=== PATIENT | male | born 1970 | race American Indian/Alaskan Native ===

== ENCOUNTER 2017-08-18 08:00 | Inpatient (IN) | payer OTHER ==
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
[2017-08-18] MEDS ORDERED: PROVENTIL IH ONE ×2 (08:20→13:34)
[2017-08-18] MEDS ORDERED: ATROVENT IH ONE (08:20)
[2017-08-18 08:42] LABS: Hematocrit 46.1 % (35.5-45.6); Hemoglobin 15.9 gm/dl (11.8-15.2); Mean Corpuscular HGB Conc 35 % (32-34); Mean Corpuscular Hemoglobin 29 pg (28-32); Mean Corpuscular Volume 84 fl (84-94); Platelet Count 377 K/mm3 (140-440); Red Blood Count 5.51 M/mm3 (3.65-5.03); Red Cell Distribution Width 14.2 % (13.2-15.2)
--- NOTE | 2017-08-18 08:47 | XRay Report ---
AP CHEST: HISTORY: Shortness of breath AP view of the chest demonstrates a normal mediastinal and cardiac contour with clear lungs and normal bony and soft tissue structures. IMPRESSION: Unremarkable AP chest.
[2017-08-18 08:59] LABS: Anion Gap 19 mmol/L; BUN/Creatinine Ratio 8.18; Blood Urea Nitrogen 9 mg/dL (9-20); Calcium 8.7 mg/dL (8.4-10.2); Carbon Dioxide 23 mmol/L (22-30); Chloride 102.7 mmol/L (98-107); Glucose 143 mg/dL (75-100); Potassium 3.2 mmol/L (3.6-5.0); Sodium 141 mmol/L (137-145)
[2017-08-18] MEDS ORDERED: ATIVAN ONE ×2 (09:31→15:29)
[2017-08-18] MEDS ORDERED: ATIVAN IV ONE (09:40)
[2017-08-18 09:46] LABS: Blastocytes % (Manual) 0 %
[2017-08-18 09:47] LABS: Basophils % (Manual) 0 % (0.0-1.8); Diff Status Complete; RBC Morphology Normal
[2017-08-18] MEDS ORDERED: KETALAR ONE (09:51)
[2017-08-18] MEDS ORDERED: KETALAR IV ONE ×2 (10:00→13:34)
[2017-08-18 10:29] LABS: ISTAT Base Excess -1; ISTAT HCO3 26.3; ISTAT PCO2 64.7 (35-45); ISTAT PH 7.217 (7.35-7.45); ISTAT PO2 74 (80-105); ISTAT SO2 91; ISTAT TCO2 28
[2017-08-18] MEDS ORDERED: NACL 0.9% 1000 ML IV ONE (10:50)
[2017-08-18] MEDS ORDERED: NACL ONE (13:00)
--- NOTE | 2017-08-18 13:09 | History and Physical Report ---
<STEVIE FONSECA - Last Filed: 08/18/17 14:17> History of Present Illness Date of examination: 08/18/17 Date of admission: 08/18/17 11:10 Chief complaint: Shortness of breath and anxiety attack. History of present illness: Patient is 47 years old female with past medical history of Asthma, who presents to the emergency department with complaining of shortness of breath.Until 5 days ago patient was at his normal baseline state of health, but the past 4 days patient developed dyspnea on exertion. Patient difficulty of breathing gets worst this morning around 6:00 AM after he had an argument with his since then he has had progressive worsening of shortness of breath to the point could not catch his breath.He called 911 and they brought her to the ED. No alleviating and aggravating factors. Patient denies he has had no fevers, chills, or cough, night sweats. No hx of recurrent pneumonia. he has no sick contact, TB exposure (that she knows of ie incarcerated, homeless) . He also has no pets, has not been around any farm animals, and has not traveled recently or been around those who have. Past History Past Medical History: other (Asthma ) Past Surgical History: No surgical history Social history: smoking. denies: alcohol abuse Family history: CAD, hypertension Medications and Allergies Allergies Allergy/AdvReac Type Severity Reaction Status Date / Time Penicillins Allergy Unknown Verified 08/18/17 08:15 Sulfa (Sulfonamide Allergy Unknown Verified 08/18/17 08:15 Antibiotics) Active Meds: Active Medications Enoxaparin Sodium (Lovenox) 40 mg SUB-Q QDAY@1000 NADER Review of Systems Constitutional: no weight loss, no weight gain, no fever Ears, nose, mouth and throat: no ear discharge, no tinnitis, no decreased hearing, no nasal congestion Cardiovascular: no orthopnea, no palpitations, no rapid/irregular heart beat Respiratory: shortness of breath, dyspnea on exertion, congestion, sleep apnea, no cough with sputum, no excessive sputum, no hemoptysis Gastrointestinal: no vomiting, no diarrhea, no constipation Genitourinary Male: no discharge, no urinary frequency, no urinary hesitancy Rectal: no pain, no incontinence Musculoskeletal: no neck pain, no arm numbness/tingling, no low back pain Integumentary: no pruritis, no redness, no wounds Neurological: no paralysis, no weakness, no parathesias, no numbness Psychiatric: no change in sleep habits, no sleep disturbances, no insomnia, no hypersomnia, no change in appetite Endocrine: no heat intolerance, no polyphagia, no excessive thirst, no polydipsia, no polyuria Hematologic/Lymphatic: no easy bruising, no easy bleeding Allergic/Immunologic: no urticaria, no allergic rhinitis Exam - Constitutional Vitals: Temp Pulse Resp BP Pulse Ox 135 H 30 H 191/137 95 08/18/17 12:01 08/18/17 12:01 08/18/17 12:30 08/18/17 12:30 General appearance: Present: no acute distress - EENT Eyes: Present: PERRL ENT: hearing intact - Neck Neck: Present: supple - Respiratory Respiratory effort: normal Respiratory: bilateral: wheezing - Cardiovascular Rhythm: regular Heart Sounds: Present: S1 & S2 - Extremities Extremities: no ischemia Peripheral Pulses: within normal limits - Abdominal General gastrointestinal: Present: soft, non-tender Male genitourinary: Present: deferred - Rectal Rectal Exam: deferred - Integumentary Integumentary: Present: clear, warm, dry - Musculoskeletal Musculoskeletal: strength equal bilaterally - Psychiatric Psychiatric: appropriate mood/affect - Neurologic Neurologic: CNII-XII intact - Allied Health Allied health notes reviewed: nursing Results - Labs CBC & Chem 7: 08/18/17 08:32 08/18/17 08:32 Labs: Laboratory Last Values WBC 22.0 K/mm3 (4.5-11.0) H 08/18/17 08:32 RBC 5.51 M/mm3 (3.65-5.03) H 08/18/17 08:32 Hgb 15.9 gm/dl (11.8-15.2) H 08/18/17 08:32 Hct 46.1 % (35.5-45.6) H 08/18/17 08:32 MCV 84 fl (84-94) 08/18/17 08:32 MCH 29 pg (28-32) 08/18/17 08:32 MCHC 35 % (32-34) H 08/18/17 08:32 RDW 14.2 % (13.2-15.2) 08/18/17 08:32 Plt Count 377 K/mm3 (140-440) 08/18/17 08:32 Add Manual Diff Complete 08/18/17 08:32 Total Counted 100 08/18/17 08:32 Seg Neuts % (Manual) 84.0 % (40.0-70.0) H 08/18/17 08:32 Band Neutrophils % 0 % 08/18/17 08:32 Lymphocytes % (Manual) 7.0 % (13.4-35.0) L 08/18/17 08:32 Reactive Lymphs % (Man) 0 % 08/18/17 08:32 Monocytes % (Manual) 3.0 % (0.0-7.3) 08/18/17 08:32 Eosinophils % (Manual) 6.0 % (0.0-4.3) H 08/18/17 08:32 Basophils % (Manual) 0 % (0.0-1.8) 08/18/17 08:32 Metamyelocytes % 0 % 08/18/17 08:32 Myelocytes % 0 % 08/18/17 08:32 Promyelocytes % 0 % 08/18/17 08:32 Blast Cells % 0 % 08/18/17 08:32 Nucleated RBC % Not Reportable 08/18/17 08:32 Seg Neutrophils # Man 18.5 K/mm3 (1.8-7.7) H 08/18/17 08:32 Band Neutrophils # 0.0 K/mm3 08/18/17 08:32 Lymphocytes # (Manual) 1.5 K/mm3 (1.2-5.4) 08/18/17 08:32 Abs React Lymphs (Man) 0.0 K/mm3 08/18/17 08:32 Monocytes # (Manual) 0.7 K/mm3 (0.0-0.8) 08/18/17 08:32 Eosinophils # (Manual) 1.3 K/mm3 (0.0-0.4) H 08/18/17 08:32 Basophils # (Manual) 0.0 K/mm3 (0.0-0.1) 08/18/17 08:32 Metamyelocytes # 0.0 K/mm3 08/18/17 08:32 Myelocytes # 0.0 K/mm3 08/18/17 08:32 Promyelocytes # 0.0 K/mm3 08/18/17 08:32 Blast Cells # 0.0 K/mm3 08/18/17 08:32 WBC Morphology Not Reportable 08/18/17 08:32 Hypersegmented Neuts Not Reportable 08/18/17 08:32 Hyposegmented Neuts Not Reportable 08/18/17 08:32 Hypogranular Neuts Not Reportable 08/18/17 08:32 Smudge Cells Not Reportable 08/18/17 08:32 Toxic Granulation Not Reportable 08/18/17 08:32 Toxic Vacuolation Not Reportable 08/18/17 08:32 Dohle Bodies Not Reportable 08/18/17 08:32 Pelger-Huet Anomaly Not Reportable 08/18/17 08:32 Merry Rods Not Reportable 08/18/17 08:32 Platelet Estimate Appears normal 08/18/17 08:32 Clumped Platelets Not Reportable 08/18/17 08:32 Plt Clumps, EDTA Not Reportable 08/18/17 08:32 Large Platelets Not Reportable 08/18/17 08:32 Giant Platelets Not Reportable 08/18/17 08:32 Platelet Satelliting Not Reportable 08/18/17 08:32 Plt Morphology Comment Not Reportable 08/18/17 08:32 RBC Morphology Normal 08/18/17 08:32 Dimorphic RBCs Not Reportable 08/18/17 08:32 Polychromasia Not Reportable 08/18/17 08:32 Hypochromasia Not Reportable 08/18/17 08:32 Poikilocytosis Not Reportable 08/18/17 08:32 Anisocytosis Not Reportable 08/18/17 08:32 Microcytosis Not Reportable 08/18/17 08:32 Macrocytosis Not Reportable 08/18/17 08:32 Spherocytes Not Reportable 08/18/17 08:32 Pappenheimer Bodies Not Reportable 08/18/17 08:32 Sickle Cells Not Reportable 08/18/17 08:32 Target Cells Not Reportable 08/18/17 08:32 Tear Drop Cells Not Reportable 08/18/17 08:32 Ovalocytes Not Reportable 08/18/17 08:32 Helmet Cells Not Reportable 08/18/17 08:32 [place] Bodies Not Reportable 08/18/17 08:32 Whigham Rings Not Reportable 08/18/17 08:32 [place] Cells Not Reportable 08/18/17 08:32 Bite Cells Not Reportable 08/18/17 08:32 Crenated Cell Not Reportable 08/18/17 08:32 Elliptocytes Not Reportable 08/18/17 08:32 Acanthocytes (Spur) Not Reportable 08/18/17 08:32 Rouleaux Not Reportable 08/18/17 08:32 Hemoglobin C Crystals Not Reportable 08/18/17 08:32 Schistocytes Not Reportable 08/18/17 08:32 Malaria parasites Not Reportable 08/18/17 08:32 Sudhakar Bodies Not Reportable 08/18/17 08:32 Hem Pathologist Commnt No 08/18/17 08:32 POC ABG pH 7.217 (7.35-7.45) L 08/18/17 10:24 POC ABG pCO2 64.7 (35-45) H 08/18/17 10:24 POC ABG pO2 74 (80-105) L 08/18/17 10:24 POC ABG HCO3 26.3 08/18/17 10:24 POC ABG Total CO2 28 08/18/17 10:24 POC ABG O2 Sat 91 08/18/17 10:24 POC ABG Base Excess -1 08/18/17 10:24 FiO2 50 % 08/18/17 10:24 Sodium 141 mmol/L (137-145) 08/18/17 08:32 Potassium 3.2 mmol/L (3.6-5.0) L 08/18/17 08:32 Chloride 102.7 mmol/L (98-107) 08/18/17 08:32 Carbon Dioxide 23 mmol/L (22-30) 08/18/17 08:32 Anion Gap 19 mmol/L 08/18/17 08:32 BUN 9 mg/dL (9-20) 08/18/17 08:32 Creatinine 1.1 mg/dL (0.8-1.5) 08/18/17 08:32 Estimated GFR > 60 ml/min 08/18/17 08:32 BUN/Creatinine Ratio 8.18 % 08/18/17 08:32 Glucose 143 mg/dL (75-100) H 08/18/17 08:32 POC Glucose 139 (70-105) H 08/18/17 08:12 Lactic Acid 1.20 mmol/L (0.7-2.0) 08/18/17 10:55 Calcium 8.7 mg/dL (8.4-10.2) 08/18/17 08:32 Troponin T < 0.010 ng/mL (0.00-0.029) 08/18/17 08:32 NT-Pro-B Natriuret Pep 18.05 pg/mL (0-450) 08/18/17 08:32 - Imaging and Cardiology Chest x-ray: image reviewed (Unremarkable ) Assessment and Plan Assessment and plan: Acute respiratory failure with hypoxia Patient oxygen saturation improved with BiPAP 35%.Patient currently on BiPAP 35 % with SPO2 98%. No acute respiratory distress noted. Aggressive Nebulizers/Inhalers ABG when necessary Oxygen supplement Pulmonary consult. Supportive care SIRS patient meets the SIRS criteria with tachycardia, tachypnea and leukocytosis. Blood and urine culture collected prior to antibiotic Follow-up with cultures Fluid resuscitation and gently IV fluid hydration Patient received IV vancomycin and Zosyn in the emergency department Started on empiric treatment IV Levaquin. Supportive care Leukocytosis Secondary to SIRS Treat with antibiotic and we will repeat CBC Closely monitor Acute Asthma exacerbation Continue on Duoneb every 6 hours Wean IV steroid Solumedrol Patient received IV vancomycin and Zosyn in the emergency department. Started on Iv Levaquin Oxygen as necessary Aggressive Nebulizers/Inhalers Supportive care Acute Bronchitis Bronchodilator's IV antibiotic treatment as above. Hypokalemia replaced We will repeat BMP in the morning Closely monitor electrolytes Dehydration IV fluid hydration Supportive care Morbid obese with BMI>43 Patient counseled to loss weight. Tobacco use Smoking cessation counseling done. Patient strongly advised to quit. DVT prophylaxis Lovenox Advance Directives: Yes VTE prophylaxis?: Chemical Contraindication Mechanical VTE Prophylaxis: Treatment Not Indicated Plan of care discussed with patient/family: Yes <SHANICE CERRATO S - Last Filed: 08/18/17 14:49> History of Present Illness Date of admission: 08/18/17 11:10 Medications and Allergies Active Meds: Active Medications Acetaminophen (Tylenol) 650 mg PO Q4H PRN PRN Reason: Pain MILD(1-3)/Fever >100.5/SHAY Albuterol (Proventil) 2.5 mg IH Q4HRT PRN PRN Reason: Shortness Of Breath Albuterol/Ipratropium (Duoneb *Not For Prn Use*) 1 ampul IH Q6HRT NADER Bisacodyl (Dulcolax) 10 mg IN QDAY PRN PRN Reason: Constipation unrelieved by MOM Enoxaparin Sodium (Lovenox) 40 mg SUB-Q QDAY@1000 NADER Sodium Chloride (Nacl 0.9% 1000 Ml) 1,000 mls @ 75 mls/hr IV DIRECT ANDER Levofloxacin/Dextrose (Levaquin 750mg/150ml) 750 mg in 150 mls @ 150 mls/hr IV Q24H NADER PRN Reason: Protocol Lorazepam (Ativan) 2 mg IV Q4H PRN PRN Reason: Agitation Methylprednisolone Sodium Succinate (Solu-Medrol) 40 mg IV Q6H NADER Ondansetron HCl (Zofran) 4 mg IM Q4H PRN PRN Reason: Nausea And Vomiting Exam - Constitutional Vitals: Temp Pulse Resp BP Pulse Ox 124 H 21 230/117 98 08/18/17 14:31 08/18/17 14:31 08/18/17 14:31 08/18/17 14:31 Results - Labs CBC & Chem 7: 08/18/17 08:32 08/18/17 08:32 Labs: Laboratory Last Values WBC 22.0 K/mm3 (4.5-11.0) H 08/18/17 08:32 RBC 5.51 M/mm3 (3.65-5.03) H 08/18/17 08:32 Hgb 15.9 gm/dl (11.8-15.2) H 08/18/17 08:32 Hct 46.1 % (35.5-45.6) H 08/18/17 08:32 MCV 84 fl (84-94) 08/18/17 08:32 MCH 29 pg (28-32) 08/18/17 08:32 MCHC 35 % (32-34) H 08/18/17 08:32 RDW 14.2 % (13.2-15.2) 08/18/17 08:32 Plt Count 377 K/mm3 (140-440) 08/18/17 08:32 Add Manual Diff Complete 08/18/17 08:32 Total Counted 100 08/18/17 08:32 Seg Neuts % (Manual) 84.0 % (40.0-70.0) H 08/18/17 08:32 Band Neutrophils % 0 % 08/18/17 08:32 Lymphocytes % (Manual) 7.0 % (13.4-35.0) L 08/18/17 08:32 Reactive Lymphs % (Man) 0 % 08/18/17 08:32 Monocytes % (Manual) 3.0 % (0.0-7.3) 08/18/17 08:32 Eosinophils % (Manual) 6.0 % (0.0-4.3) H 08/18/17 08:32 Basophils % (Manual) 0 % (0.0-1.8) 08/18/17 08:32 Metamyelocytes % 0 % 08/18/17 08:32 Myelocytes % 0 % 08/18/17 08:32 Promyelocytes % 0 % 08/18/17 08:32 Blast Cells % 0 % 08/18/17 08:32 Nucleated RBC % Not Reportable 08/18/17 08:32 Seg Neutrophils # Man 18.5 K/mm3 (1.8-7.7) H 08/18/17 08:32 Band Neutrophils # 0.0 K/mm3 08/18/17 08:32 Lymphocytes # (Manual) 1.5 K/mm3 (1.2-5.4) 08/18/17 08:32 Abs React Lymphs (Man) 0.0 K/mm3 08/18/17 08:32 Monocytes # (Manual) 0.7 K/mm3 (0.0-0.8) 08/18/17 08:32 Eosinophils # (Manual) 1.3 K/mm3 (0.0-0.4) H 08/18/17 08:32 Basophils # (Manual) 0.0 K/mm3 (0.0-0.1) 08/18/17 08:32 Metamyelocytes # 0.0 K/mm3 08/18/17 08:32 Myelocytes # 0.0 K/mm3 08/18/17 08:32 Promyelocytes # 0.0 K/mm3 08/18/17 08:32 Blast Cells # 0.0 K/mm3 08/18/17 08:32 WBC Morphology Not Reportable 08/18/17 08:32 Hypersegmented Neuts Not Reportable 08/18/17 08:32 Hyposegmented Neuts Not Reportable 08/18/17 08:32 Hypogranular Neuts Not Reportable 08/18/17 08:32 Smudge Cells Not Reportable 08/18/17 08:32 Toxic Granulation Not Reportable 08/18/17 08:32 Toxic Vacuolation Not Reportable 08/18/17 08:32 Dohle Bodies Not Reportable 08/18/17 08:32 Pelger-Huet Anomaly Not Reportable 08/18/17 08:32 Emrry Rods Not Reportable 08/18/17 08:32 Platelet Estimate Appears normal 08/18/17 08:32 Clumped Platelets Not Reportable 08/18/17 08:32 Plt Clumps, EDTA Not Reportable 08/18/17 08:32 Large Platelets Not Reportable 08/18/17 08:32 Giant Platelets Not Reportable 08/18/17 08:32 Platelet Satelliting Not Reportable 08/18/17 08:32 Plt Morphology Comment Not Reportable 08/18/17 08:32 RBC Morphology Normal 08/18/17 08:32 Dimorphic RBCs Not Reportable 08/18/17 08:32 Polychromasia Not Reportable 08/18/17 08:32 Hypochromasia Not Reportable 08/18/17 08:32 Poikilocytosis Not Reportable 08/18/17 08:32 Anisocytosis Not Reportable 08/18/17 08:32 Microcytosis Not Reportable 08/18/17 08:32 Macrocytosis Not Reportable 08/18/17 08:32 Spherocytes Not Reportable 08/18/17 08:32 Pappenheimer Bodies Not Reportable 08/18/17 08:32 Sickle Cells Not Reportable 08/18/17 08:32 Target Cells Not Reportable 08/18/17 08:32 Tear Drop Cells Not Reportable 08/18/17 08:32 Ovalocytes Not Reportable 08/18/17 08:32 Helmet Cells Not Reportable 08/18/17 08:32 [place] Bodies Not Reportable 08/18/17 08:32 Whigham Rings Not Reportable 08/18/17 08:32 [place] Cells Not Reportable 08/18/17 08:32 Bite Cells Not Reportable 08/18/17 08:32 Crenated Cell Not Reportable 08/18/17 08:32 Elliptocytes Not Reportable 08/18/17 08:32 Acanthocytes (Spur) Not Reportable 08/18/17 08:32 Rouleaux Not Reportable 08/18/17 08:32 Hemoglobin C Crystals Not Reportable 08/18/17 08:32 Schistocytes Not Reportable 08/18/17 08:32 Malaria parasites Not Reportable 08/18/17 08:32 Sudhakar Bodies Not Reportable 08/18/17 08:32 Hem Pathologist Commnt No 08/18/17 08:32 POC ABG pH 7.217 (7.35-7.45) L 08/18/17 10:24 POC ABG pCO2 64.7 (35-45) H 08/18/17 10:24 POC ABG pO2 74 (80-105) L 08/18/17 10:24 POC ABG HCO3 26.3 08/18/17 10:24 POC ABG Total CO2 28 08/18/17 10:24 POC ABG O2 Sat 91 08/18/17 10:24 POC ABG Base Excess -1 08/18/17 10:24 FiO2 50 % 08/18/17 10:24 Sodium 141 mmol/L (137-145) 08/18/17 08:32 Potassium 3.2 mmol/L (3.6-5.0) L 08/18/17 08:32 Chloride 102.7 mmol/L (98-107) 08/18/17 08:32 Carbon Dioxide 23 mmol/L (22-30) 08/18/17 08:32 Anion Gap 19 mmol/L 08/18/17 08:32 BUN 9 mg/dL (9-20) 08/18/17 08:32 Creatinine 1.1 mg/dL (0.8-1.5) 08/18/17 08:32 Estimated GFR > 60 ml/min 08/18/17 08:32 BUN/Creatinine Ratio 8.18 % 08/18/17 08:32 Glucose 143 mg/dL (75-100) H 08/18/17 08:32 POC Glucose 139 (70-105) H 08/18/17 08:12 Lactic Acid 1.20 mmol/L (0.7-2.0) 08/18/17 10:55 Calcium 8.7 mg/dL (8.4-10.2) 08/18/17 08:32 Troponin T < 0.010 ng/mL (0.00-0.029) 08/18/17 08:32 NT-Pro-B Natriuret Pep 18.05 pg/mL (0-450) 08/18/17 08:32 Assessment and Plan Assessment and plan: I saw and evaluated the patient. I agree with the findings and the plan of care as documented in the Nurse Practitioner's~note, with the following corrections and additions.
[2017-08-18] MEDS ORDERED: PROVENTIL IH PRN (13:20)
[2017-08-18] MEDS ORDERED: TYLENOL PO PRN (13:20)
[2017-08-18] MEDS ORDERED: DULCOLAX PR PRN (13:20)
[2017-08-18] MEDS ORDERED: ZOFRAN IM PRN (13:22)
[2017-08-18] MEDS ORDERED: ATIVAN IV PRN (13:22)
[2017-08-18] MEDS ORDERED: K-DUR PO ONE (14:00)
[2017-08-18] MEDS ORDERED: DUONEB *Not for PRN Use IH SCH (14:00)
[2017-08-18] MEDS ORDERED: LEVAQUIN 750MG/150ML 750 MG/150 ML BAG IV SCH (14:30)
[2017-08-18] MEDS ORDERED: LEVAQUIN 500MG/100ML 500 MG/100 ML BAG IV SCH (14:30)
[2017-08-18] MEDS ORDERED: QUELICIN ONE (15:18)
[2017-08-18] MEDS ORDERED: AMIDATE IV ONE ×2 (15:18→16:49)
[2017-08-18] MEDS ORDERED: FENTANYL IV ONE (15:29)
[2017-08-18] MEDS ORDERED: DIPRIVAN 10 MG/ML IV ONE (15:29)
[2017-08-18] MEDS: fentaNYL DRIP Premix 2,000 MCG/100 ML BAG IV SCH (15:35)
[2017-08-18] MEDS: DIPRIVAN 10 MG/ML 1,000 MG/100 ML BOTTLE IV SCH ×2 (15:40→22:32)
--- NOTE | 2017-08-18 15:47 | Procedure Note ---
Date of procedure: 08/18/17 Pre-op diagnosis: respiratory failure Post-op diagnosis: same Procedure: Intubation procedure was emergent timeout was called. Patient was intubated with 100 of succinylcholine and 20 of etomidate. Patient was intubated on the first try ET tube was visualized going through cords. ET tube was 8.0 a Mac 3 blade was used with direct visualization. Placement was confirmed by chest x- ray, tube condensation CO2 capnography and breath sounds. Patient tolerated the procedure well and had no complications. Anesthesia: other (100 of succinylcholine and 20 of etomidate) Surgeon: FLORENTIN CORDERO Estimated blood loss: none Pathology: none Condition: stable Disposition: ICU
[2017-08-18] MEDS ORDERED: CARDENE 50 MG in NACL 0.9% 250ML 230 ML IV SCH (16:00)
--- NOTE | 2017-08-18 16:19 | XRay Report ---
PORTABLE CHEST INDICATION: Post intubation. COMPARISON: 8:34 AM earlier today. FINDINGS: Portable, frontal chest radiograph, 3:47 PM, 08/18/2017 demonstrates new endotracheal tube tip approximately 4 cm above the rashi. New esophagogastric tube tip just past the GE junction in the proximal stomach. Normal cardiomediastinal silhouette. Clear lungs. Intact bones. EKG leads. Few radiopaque dental fillings. CONCLUSION: No acute chest process with uncomplicated intubation. Esophagogastric tube may though be advanced approximately 10 cm for more optimal tip placement in the stomach, if so appropriate. Thank you for the opportunity to participate in this patient's care.
[2017-08-18] MEDS ORDERED: QUELICIN IV ONE (16:47)
[2017-08-18 16:56] LABS: ISTAT Base Excess -1; ISTAT HCO3 26.6; ISTAT PCO2 63.3 (35-45); ISTAT PH 7.231 (7.35-7.45); ISTAT PO2 94 (80-105); ISTAT SO2 95; ISTAT TCO2 28
[2017-08-18 17:44] LABS: Bilirubin,Urine NEG (Negative); Blood,Urine SM (Negative); Ketones,Urine TR mg/dL (Negative); Leukocyte Esterase,Urine NEG (Negative); Mucus,Urine FEW /HPF; Nitrite,Urine NEG (Negative); Urobilinogen,Urine < 2.0 mg/dL (<2.0)
[2017-08-18 17:45] LABS: Protein,Urine >500 mg/dL (Negative)
[2017-08-18] MEDS: NACL 0.9% 1000 ML 1,000 ML IV SCH (20:36)
[2017-08-18] MEDS ORDERED: VANCOMYCIN/NS 1 GM/250 ML 1 GM/250 ML BAG IV ONE (20:52)
[2017-08-18] MEDS ORDERED: ZOSYN/NS 4.5GM/100ML 4.5 GM/100 ML VIAL IV SCH (21:00)
[2017-08-18] MEDS ORDERED: VANCOMYCIN 2,000 MG in NACL 0.9% 500 ML 500 ML IV SCH (22:00)
[2017-08-18] MEDS: DUONEB *Not for PRN Use IH SCH (22:15)
[2017-08-19] MEDS: DUONEB *Not for PRN Use IH SCH ×4 (01:10→20:08)
[2017-08-19] MEDS: fentaNYL DRIP Premix 2,000 MCG/100 ML BAG IV SCH ×3 (02:32→23:12)
--- NOTE | 2017-08-19 05:07 | Event Note ---
Date: 08/18/17 Acute Resp failure:PATIENT WAS IN SEVERE RESP DISTRESS INSPITE OF Bipap.Requested Dr Olmos to intubate the patient b/c of impending fatigue .Intubated without any complication.Vent settings ordered. Hypertensive emergency:Patient initiated on Cardene drip .Dose to be adjusted to keep DBP below 100 and Systolic Bp below 160 mm Hg The high probability of a clinically significant, sudden or life threatening deterioration of the [cardiac, pulmonary, renal] system(s) required my full and direct attention, intervention and personal management. The aggregate critical care time was [40] minutes. This time is in addition to time spent performing reported procedures but includes the following: [x] Data Review and interpretation [x] Patient assessment and monitoring of vital signs [x] Documentation [x] Medication orders and management
[2017-08-19 05:41] LABS: ISTAT Base Excess -3; ISTAT HCO3 23.2; ISTAT PO2 83 (80-105); ISTAT SO2 95; ISTAT TCO2 25
[2017-08-19 06:12] LABS: Albumin 3.5 g/dL (3.9-5); Albumin/Globulin Ratio 1.1 %; BUN/Creatinine Ratio 7.58; Bilirubin,Total 0.4 mg/dL (0.1-1.2); Calcium 8.4 mg/dL (8.4-10.2); Chloride 105.2 mmol/L (98-107); Magnesium 2.2 mg/dL (1.7-2.3); Potassium 4.6 mmol/L (3.6-5.0); Total Protein 6.6 g/dL (6.3-8.2)
[2017-08-19 06:26] LABS: Basophils % (Auto) 0.1 % (0.0-1.8); Hematocrit 40.2 % (35.5-45.6); Hemoglobin 13.1 gm/dl (11.8-15.2); Mean Corpuscular HGB Conc 33 % (32-34); Mean Corpuscular Hemoglobin 28 pg (28-32); Mean Corpuscular Volume 86 fl (84-94); Platelet Count 282 K/mm3 (140-440); Red Blood Count 4.66 M/mm3 (3.65-5.03); Red Cell Distribution Width 14.7 % (13.2-15.2); White Blood Count 18.1 K/mm3 (4.5-11.0)
--- NOTE | 2017-08-19 08:23 | Progress Note ---
Assessment and Plan Assessment and plan: Acute resp faillure due to asthma exacerbation. He is now intubated on ventilator. Pulmonology following. Asthma exacerbation. On solumedrol, levaquin, Duoneb Leukocytosis maybe SIRS. To r/o sepsis. Acute Kidney Injury due to Acute tubular necrosis. Creatinine 2.9, was 1.1 yesterday. Strict I/O. 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 DVT prophylaxis with Lovenox Full code status History Interval history: Patient with acute resp failure due to asthma exacerbation Hospitalist Physical - Physical exam Narrative exam: Gen Appearance: Not in acute distress,intubated HEENT: normocephalic, atraumatic Neck: supple, no JVD Lungs: Clear to auscultation, bilaterally, no rales, no wheeze Heart: S1 and S2 regular, no murmurs, rubs or gallop Abdomen: Soft , non tender, non distended, normal bowel sounds Extremity: No edema, no clubbing or cyanosis, Neuro : Intubated,sedated - Constitutional Vitals: Temp Pulse Resp BP Pulse Ox 98.9 F 79 24 116/67 95 08/19/17 08:00 08/19/17 06:21 08/19/17 06:21 08/19/17 06:21 08/19/17 06:21 General appearance: Present: no acute distress Results - Labs CBC & Chem 7: 08/20/17 04:04 08/20/17 10:34 Labs: Laboratory Last Values WBC 18.1 K/mm3 (4.5-11.0) H 08/19/17 04:37 RBC 4.66 M/mm3 (3.65-5.03) 08/19/17 04:37 Hgb 13.1 gm/dl (11.8-15.2) 08/19/17 04:37 Hct 40.2 % (35.5-45.6) 08/19/17 04:37 MCV 86 fl (84-94) 08/19/17 04:37 MCH 28 pg (28-32) 08/19/17 04:37 MCHC 33 % (32-34) 08/19/17 04:37 RDW 14.7 % (13.2-15.2) 08/19/17 04:37 Plt Count 282 K/mm3 (140-440) 08/19/17 04:37 Lymph % (Auto) 6.1 % (13.4-35.0) L 08/19/17 04:37 Mcdowell % (Auto) 4.1 % (0.0-7.3) 08/19/17 04:37 Eos % (Auto) 0.0 % (0.0-4.3) 08/19/17 04:37 Baso % (Auto) 0.1 % (0.0-1.8) 08/19/17 04:37 Lymph # 1.1 K/mm3 (1.2-5.4) L 08/19/17 04:37 Mcdowell # 0.7 K/mm3 (0.0-0.8) 08/19/17 04:37 Eos # 0.0 K/mm3 (0.0-0.4) 08/19/17 04:37 Baso # 0.0 K/mm3 (0.0-0.1) 08/19/17 04:37 Add Manual Diff Complete 08/18/17 08:32 Total Counted 100 08/18/17 08:32 Seg Neutrophils % 89.7 % (40.0-70.0) H 08/19/17 04:37 Seg Neuts % (Manual) 84.0 % (40.0-70.0) H 08/18/17 08:32 Band Neutrophils % 0 % 08/18/17 08:32 Lymphocytes % (Manual) 7.0 % (13.4-35.0) L 08/18/17 08:32 Reactive Lymphs % (Man) 0 % 08/18/17 08:32 Monocytes % (Manual) 3.0 % (0.0-7.3) 08/18/17 08:32 Eosinophils % (Manual) 6.0 % (0.0-4.3) H 08/18/17 08:32 Basophils % (Manual) 0 % (0.0-1.8) 08/18/17 08:32 Metamyelocytes % 0 % 08/18/17 08:32 Myelocytes % 0 % 08/18/17 08:32 Promyelocytes % 0 % 08/18/17 08:32 Blast Cells % 0 % 08/18/17 08:32 Nucleated RBC % Not Reportable 08/18/17 08:32 Seg Neutrophils # 16.2 K/mm3 (1.8-7.7) H 08/19/17 04:37 Seg Neutrophils # Man 18.5 K/mm3 (1.8-7.7) H 08/18/17 08:32 Band Neutrophils # 0.0 K/mm3 08/18/17 08:32 Lymphocytes # (Manual) 1.5 K/mm3 (1.2-5.4) 08/18/17 08:32 Abs React Lymphs (Man) 0.0 K/mm3 08/18/17 08:32 Monocytes # (Manual) 0.7 K/mm3 (0.0-0.8) 08/18/17 08:32 Eosinophils # (Manual) 1.3 K/mm3 (0.0-0.4) H 08/18/17 08:32 Basophils # (Manual) 0.0 K/mm3 (0.0-0.1) 08/18/17 08:32 Metamyelocytes # 0.0 K/mm3 08/18/17 08:32 Myelocytes # 0.0 K/mm3 08/18/17 08:32 Promyelocytes # 0.0 K/mm3 08/18/17 08:32 Blast Cells # 0.0 K/mm3 08/18/17 08:32 WBC Morphology Not Reportable 08/18/17 08:32 Hypersegmented Neuts Not Reportable 08/18/17 08:32 Hyposegmented Neuts Not Reportable 08/18/17 08:32 Hypogranular Neuts Not Reportable 08/18/17 08:32 Smudge Cells Not Reportable 08/18/17 08:32 Toxic Granulation Not Reportable 08/18/17 08:32 Toxic Vacuolation Not Reportable 08/18/17 08:32 Dohle Bodies Not Reportable 08/18/17 08:32 Pelger-Huet Anomaly Not Reportable 08/18/17 08:32 Merry Rods Not Reportable 08/18/17 08:32 Platelet Estimate Appears normal 08/18/17 08:32 Clumped Platelets Not Reportable 08/18/17 08:32 Plt Clumps, EDTA Not Reportable 08/18/17 08:32 Large Platelets Not Reportable 08/18/17 08:32 Giant Platelets Not Reportable 08/18/17 08:32 Platelet Satelliting Not Reportable 08/18/17 08:32 Plt Morphology Comment Not Reportable 08/18/17 08:32 RBC Morphology Normal 08/18/17 08:32 Dimorphic RBCs Not Reportable 08/18/17 08:32 Polychromasia Not Reportable 08/18/17 08:32 Hypochromasia Not Reportable 08/18/17 08:32 Poikilocytosis Not Reportable 08/18/17 08:32 Anisocytosis Not Reportable 08/18/17 08:32 Microcytosis Not Reportable 08/18/17 08:32 Macrocytosis Not Reportable 08/18/17 08:32 Spherocytes Not Reportable 08/18/17 08:32 Pappenheimer Bodies Not Reportable 08/18/17 08:32 Sickle Cells Not Reportable 08/18/17 08:32 Target Cells Not Reportable 08/18/17 08:32 Tear Drop Cells Not Reportable 08/18/17 08:32 Ovalocytes Not Reportable 08/18/17 08:32 Helmet Cells Not Reportable 08/18/17 08:32 [place] Bodies Not Reportable 08/18/17 08:32 Norris Rings Not Reportable 08/18/17 08:32 [place]ie Cells Not Reportable 08/18/17 08:32 Bite Cells Not Reportable 08/18/17 08:32 Crenated Cell Not Reportable 08/18/17 08:32 Elliptocytes Not Reportable 08/18/17 08:32 Acanthocytes (Spur) Not Reportable 08/18/17 08:32 Rouleaux Not Reportable 08/18/17 08:32 Hemoglobin C Crystals Not Reportable 08/18/17 08:32 Schistocytes Not Reportable 08/18/17 08:32 Malaria parasites Not Reportable 08/18/17 08:32 Sudhakar Bodies Not Reportable 08/18/17 08:32 Hem Pathologist Commnt No 08/18/17 08:32 POC ABG pH 7.320 (7.35-7.45) L 08/19/17 05:37 POC ABG pCO2 45.0 (35-45) 08/19/17 05:37 POC ABG pO2 83 (80-105) 08/19/17 05:37 POC ABG HCO3 23.2 08/19/17 05:37 POC ABG Total CO2 25 08/19/17 05:37 POC ABG O2 Sat 95 08/19/17 05:37 POC ABG Base Excess -3 08/19/17 05:37 FiO2 65 % 08/19/17 05:37 Sodium 142 mmol/L (137-145) 08/19/17 04:37 Potassium 4.6 mmol/L (3.6-5.0) D 08/19/17 04:37 Chloride 105.2 mmol/L (98-107) 08/19/17 04:37 Carbon Dioxide 23 mmol/L (22-30) 08/19/17 04:37 Anion Gap 18 mmol/L 08/19/17 04:37 BUN 22 mg/dL (9-20) H 08/19/17 04:37 Creatinine 2.9 mg/dL (0.8-1.5) H D 08/19/17 04:37 Estimated GFR 28 ml/min 08/19/17 04:37 BUN/Creatinine Ratio 7.58 % 08/19/17 04:37 Glucose 124 mg/dL (75-100) H 08/19/17 04:37 POC Glucose 139 (70-105) H 08/18/17 08:12 Lactic Acid 1.40 mmol/L (0.7-2.0) 08/18/17 21:14 Calcium 8.4 mg/dL (8.4-10.2) 08/19/17 04:37 Phosphorus 1.00 mg/dL (2.5-4.5) L 08/19/17 04:37 Magnesium 2.20 mg/dL (1.7-2.3) 08/19/17 04:37 Total Bilirubin 0.40 mg/dL (0.1-1.2) 08/19/17 04:37 AST 16 units/L (5-40) 08/19/17 04:37 ALT 13 units/L (7-56) 08/19/17 04:37 Alkaline Phosphatase 58 units/L (35-129) 08/19/17 04:37 Troponin T < 0.010 ng/mL (0.00-0.029) 08/18/17 08:32 NT-Pro-B Natriuret Pep 18.05 pg/mL (0-450) 08/18/17 08:32 Total Protein 6.6 g/dL (6.3-8.2) 08/19/17 04:37 Albumin 3.5 g/dL (3.9-5) L 08/19/17 04:37 Albumin/Globulin Ratio 1.1 % 08/19/17 04:37 Urine Color Yellow (Yellow) 08/18/17 17: Urine Turbidity Clear (Clear) 08/18/17 17:26 Urine pH 5.0 (5.0-7.0) 08/18/17 17:26 Ur Specific [place] 1.026 (1.003-1.030) 08/18/17 17:26 Urine Protein >500 mg/dL (Negative) 08/18/17 17:26 Urine Glucose (UA) 50 mg/dL (Negative) 08/18/17 17: Urine Ketones Tr mg/dL (Negative) 08/18/17 17: Urine Blood Sm (Negative) 08/18/17 17:26 Urine Nitrite Neg (Negative) 08/18/17 17: Urine Bilirubin Neg (Negative) 08/18/17 17: Urine Urobilinogen < 2.0 mg/dL (<2.0) 08/18/17 17:26 Ur Leukocyte Esterase Neg (Negative) 08/18/17 17:26 Urine WBC (Auto) 9.0 /HPF (0.0-6.0) H 08/18/17 17: Urine RBC (Auto) 5.0 /HPF (0.0-6.0) 08/18/17 17:26 U Epithel Cells (Auto) < 1.0 /HPF (0-13.0) 08/18/17 17: Urine Mucus Few /HPF 08/18/17 17:26
--- NOTE | 2017-08-19 08:46 | XRay Report ---
AP CHEST :08/19/17 CLINICAL: Intubated.Follow up respiratory failure. COMPARISON:Previous day. FINDINGS: The endotracheal tube is in satisfactory position. The feeding tube tip is below the diaphragm and not imaged. The lungs are normally expanded and clear. No pneumothorax. IMPRESSION: Normal.
[2017-08-19] MEDS: LOVENOX SUB-Q SCH (09:17)
[2017-08-19] MEDS: PEPCID IV SCH (09:17)
[2017-08-19] MEDS ORDERED: SODIUM PHOSPHATE 30 MMOL in NACL 0.9% 500 ML 500 ML IV ONE (09:30)
[2017-08-19] MEDS ORDERED: LOVENOX SUB-Q SCH (10:00)
--- NOTE | 2017-08-19 11:32 | Consultation ---
History of Present Illness - Reason for Consult Consult date: 08/19/17 acute renal failure - History of Present Illness This is a 47 year old male who presented to the E.R via EMS with a chief complaint of worsening shortness of breath that occurred at 6:00 a.m yesterday morning after undergoing an argument with his per report but prior to that event patient had ongoing dyspnea on exertion that started 5 days prior. During hospitalization patient subsequently went into severe respiratory distress requiring intubation and patient also had Hypertensive Emergency requiring Cardene drip initiation. Patient is currently sedated and intubated. Patient has history of Asthma and Hypertension. Pertinent admission labs revealed an elevated WBC count of 22.0 for which patient has been placed on Sepsis protocol. Patient's serum creatinine was 1.1 on admission which scott to 2.9 today. We are being consulted for management of this patient's Acute Renal Failure. Past History Past Medical History: hypertension, hyperlipidemia, other (Asthma ) Past Surgical History: No surgical history Social history: smoking. denies: alcohol abuse Family history: CAD, hypertension Medications and Allergies Allergies Allergy/AdvReac Type Severity Reaction Status Date / Time Penicillins Allergy Unknown Verified 08/18/17 08:15 Sulfa (Sulfonamide Allergy Unknown Verified 08/18/17 08:15 Antibiotics) Active Meds: Active Medications Acetaminophen (Tylenol) 650 mg PO Q4H PRN PRN Reason: Pain MILD(1-3)/Fever >100.5/SHAY Albuterol (Proventil) 2.5 mg IH Q4HRT PRN PRN Reason: Shortness Of Breath Albuterol/Ipratropium (Duoneb *Not For Prn Use*) 1 ampul IH Q6HRT [facility] Last Admin: 08/19/17 08:50 Dose: 1 ampul Bisacodyl (Dulcolax) 10 mg WA QDAY PRN PRN Reason: Constipation unrelieved by MOM Enoxaparin Sodium (Lovenox) 30 mg SUB-Q QDAY [facility] Last Admin: 08/19/17 09:17 Dose: 30 mg Famotidine (Pepcid) 20 mg IV DAILY [facility] Last Admin: 08/19/17 09:17 Dose: 20 mg Sodium Chloride (Nacl 0.9% 1000 Ml) 1,000 mls @ 75 mls/hr IV DIRECT [facility] Last Admin: 08/18/17 20:36 Dose: 75 mls/hr Nicardipine HCl 50 mg/ Sodium (Chloride) 250 mls @ 25 mls/hr IV TITR [facility]; 5 MG/ HR PRN Reason: Protocol Last Titration: 08/18/17 22:35 Dose: 0 mg/hr, 0 mls/hr Fentanyl Citrate (Fentanyl Drip Premix) 2,000 mcg in 100 mls @ 6.691 mls/hr IV TITR NADER; 1 MCG/KG/HR PRN Reason: Protocol Last Titration: 08/19/17 11:00 Dose: 1 mcg/kg/hr, 6.691 mls/hr Propofol (Diprivan 10 Mg/Ml) 1,000 mg in 100 mls @ 4.014 mls/hr IV TITR NADER; 5 MCG/KG/MIN PRN Reason: Protocol Last Titration: 08/19/17 09:30 Dose: 5 mcg/kg/min, 4.014 mls/hr Levofloxacin/Dextrose (Levaquin 750mg/150ml) 750 mg in 150 mls @ 150 mls/hr IV Q48HR [facility] PRN Reason: Protocol Sodium Phosphate 30 mmol/ (Sodium Chloride) 510 mls @ 125 mls/hr IV ONCE ONE Stop: 08/19/17 13:34 Last Admin: 08/19/17 09:47 Dose: 125 mls/hr Lorazepam (Ativan) 2 mg IV Q4H PRN PRN Reason: Agitation Methylprednisolone Sodium Succinate (Solu-Medrol) 125 mg IV Q8H [facility] Last Admin: 08/19/17 09:17 Dose: 125 mg Ondansetron HCl (Zofran) 4 mg IM Q4H PRN PRN Reason: Nausea And Vomiting Review of Systems ROS unobtainable: due to endotracheal tube, due to mental status Exam - Vital Signs Vital signs: Vital Signs Pulse Resp BP Pulse Ox 130 H 32 H 129/85 93 08/18/17 08:08 08/18/17 08:08 08/18/17 08:08 08/18/17 08:08 - General Appearance General appearance: sedated on ventilator, intubated EENT: ATNC, PERRL Neck: Present: neck supple Respiratory: Clear to Ascultation Heart: regular, S1S2 Gastrointestinal: Present: normoactive bowel sounds Integumentary: warm and dry Neurologic: other (Sedated and intubated) Musculoskeletal: Present: other (No edema) Results - Lab Results 08/19/17 04:37 08/19/17 04:37 Most recent lab results Calcium 8.4 mg/dL (8.4-10.2) 08/19/17 04:37 Phosphorus 1.00 mg/dL (2.5-4.5) L 08/19/17 04:37 Magnesium 2.20 mg/dL (1.7-2.3) 08/19/17 04:37 Assessment and Plan - Patient Problems (1) Acute respiratory failure with hypoxia Current Visit: Yes Status: Acute Plan to address problem: Intubated on vent support (2) Acute renal failure due to tubular necrosis Current Visit: Yes Status: Acute Plan to address problem: Renal function reviewed. Current serum creatinine scott to 2.9 today from 1.1. Non-oliguric ARF likely secondary to Ischemic Acute Tubular necrosis secondary to Sepsis Continue IVF with NS@ 75 ml/hr Obtain urine eosinophils and urine lytes Obtain renal ultrasound Obtain daily weights Renally dose medications Avoid Nephrotoxic agents Monitor renal function closely (3) Hypertensive emergency Current Visit: Yes Status: Acute Plan to address problem: Cardene drip (4) Hypophosphatemia Current Visit: Yes Status: Acute Plan to address problem: In repletion with IV Sodium Phos (5) SIRS (systemic inflammatory response syndrome) Current Visit: Yes Status: Acute Plan to address problem: On IV Solumedrol, Levaquin and IV hydration
--- NOTE | 2017-08-19 12:37 | Consultation ---
History of Present Illness Consult date: 08/19/17 Requesting physician: JOSÉ MIGUEL PADGETT Reason for consult: other (Acute Resp Failure on MVS; Sepsis Syndrome) History of present illness: PULMONARY/CCM CONSULT NOTE (Full dictation # [id number]) Please see dictated notes for full details Past History Past Medical History: hypertension, hyperlipidemia, other (Asthma ) Past Surgical History: No surgical history Social history: smoking. denies: alcohol abuse Family history: CAD, hypertension Medications and Allergies Allergies Allergy/AdvReac Type Severity Reaction Status Date / Time Penicillins Allergy Unknown Verified 08/18/17 08:15 Sulfa (Sulfonamide Allergy Unknown Verified 08/18/17 08:15 Antibiotics) Active Meds: Active Medications Acetaminophen (Tylenol) 650 mg PO Q4H PRN PRN Reason: Pain MILD(1-3)/Fever >100.5/SHAY Albuterol (Proventil) 2.5 mg IH Q4HRT PRN PRN Reason: Shortness Of Breath Albuterol/Ipratropium (Duoneb *Not For Prn Use*) 1 ampul IH Q6HRT [facility] Last Admin: 08/19/17 08:50 Dose: 1 ampul Bisacodyl (Dulcolax) 10 mg MO QDAY PRN PRN Reason: Constipation unrelieved by MOM Enoxaparin Sodium (Lovenox) 30 mg SUB-Q QDAY [facility] Last Admin: 08/19/17 09:17 Dose: 30 mg Famotidine (Pepcid) 20 mg IV DAILY [facility] Last Admin: 08/19/17 09:17 Dose: 20 mg Sodium Chloride (Nacl 0.9% 1000 Ml) 1,000 mls @ 75 mls/hr IV DIRECT [facility] Last Admin: 08/18/17 20:36 Dose: 75 mls/hr Nicardipine HCl 50 mg/ Sodium (Chloride) 250 mls @ 25 mls/hr IV TITR NADER; 5 MG/ HR PRN Reason: Protocol Last Titration: 08/18/17 22:35 Dose: 0 mg/hr, 0 mls/hr Fentanyl Citrate (Fentanyl Drip Premix) 2,000 mcg in 100 mls @ 6.691 mls/hr IV TITR NAD[facility]; 1 MCG/KG/HR PRN Reason: Protocol Last Titration: 08/19/17 11:00 Dose: 1 mcg/kg/hr, 6.691 mls/hr Propofol (Diprivan 10 Mg/Ml) 1,000 mg in 100 mls @ 4.014 mls/hr IV TITR NADER; 5 MCG/KG/MIN PRN Reason: Protocol Last Titration: 08/19/17 09:30 Dose: 5 mcg/kg/min, 4.014 mls/hr Levofloxacin/Dextrose (Levaquin 750mg/150ml) 750 mg in 150 mls @ 150 mls/hr IV Q48HR [facility] PRN Reason: Protocol Sodium Phosphate 30 mmol/ (Sodium Chloride) 510 mls @ 125 mls/hr IV ONCE ONE Stop: 08/19/17 13:34 Last Admin: 08/19/17 09:47 Dose: 125 mls/hr Lorazepam (Ativan) 2 mg IV Q4H PRN PRN Reason: Agitation Methylprednisolone Sodium Succinate (Solu-Medrol) 125 mg IV Q8H [facility] Last Admin: 08/19/17 09:17 Dose: 125 mg Ondansetron HCl (Zofran) 4 mg IM Q4H PRN PRN Reason: Nausea And Vomiting Physical Examination Vital signs: Vital Signs Pulse Resp BP Pulse Ox 130 H 32 H 129/85 93 08/18/17 08:08 08/18/17 08:08 08/18/17 08:08 08/18/17 08:08 Results - Laboratory Findings CBC and BMP: 08/19/17 04:37 08/19/17 04:37 ABG POC ABG pH 7.320 (7.35-7.45) L 08/19/17 05:37 POC ABG pCO2 45.0 (35-45) 08/19/17 05:37 POC ABG pO2 83 (80-105) 08/19/17 05:37 POC ABG HCO3 23.2 08/19/17 05:37 POC ABG Total CO2 25 08/19/17 05:37 POC ABG O2 Sat 95 08/19/17 05:37 Abnormal lab findings: Abnormal Labs 08/18/17 08/18/17 08/19/17 16:54 17:26 04:37 WBC 18.1 H Lymph % (Auto) 6.1 L Lymph # 1.1 L Seg Neutrophils % 89.7 H Seg Neutrophils # 16.2 H POC ABG pH 7.231 L POC ABG pCO2 63.3 H BUN Creatinine Glucose Phosphorus Albumin Urine WBC (Auto) 9.0 H 08/19/17 08/19/17 04:37 05:37 WBC Lymph % (Auto) Lymph # Seg Neutrophils % Seg Neutrophils # POC ABG pH 7.320 L POC ABG pCO2 BUN 22 H Creatinine 2.9 H D Glucose 124 H Phosphorus 1.00 L Albumin 3.5 L Urine WBC (Auto)
--- NOTE | 2017-08-19 13:57 | Ultrasound Report ---
ULTRASOUND RENAL INDICATION: Renal failure. COMPARISON: None similar. FINDINGS: Renal sonography suggests top normal/borderline increased renal cortical echogenicity. Grossly preserved contours. No hydronephrosis. Imaged liver slightly coarse and possible craniocaudal enlargement of the right hepatic lobe. RIGHT KIDNEY measures 11.5 x 3.9 x 5.3 cm with cortical thickness of 1.1 cm. LEFT KIDNEY estimated at 11.7 x 6.5 x 5.8 cm with cortical thickness of 1.8 cm. URINARY BLADDER decompressed by a Nieves catheter and suboptimally assessed. CONCLUSION: Slight underlying medical renal disease possible sonographically without acute renal abnormality. Hepatomegaly also not excluded. Please correlate. Thank you for the opportunity to participate in this patient's care.
[2017-08-19] MEDS: NACL 0.9% 1000 ML 1,000 ML IV SCH (14:38)
--- NOTE | 2017-08-19 15:28 | Progress Note ---
Subjective Date of service: 08/19/17 Objective - Vital Signs Vital signs: Vital Signs - 12hr 08/19/17 08/19/17 08/19/17 03:11 03:15 03:21 Temperature Pulse Rate 85 91 H 85 Respiratory 24 24 24 Rate Respiratory 24 Rate [denies] Blood Pressure 93/42 93/42 O2 Sat by Pulse 95 94 95 Oximetry 08/19/17 08/19/17 08/19/17 03:30 03:41 03:51 Temperature Pulse Rate 83 79 80 Respiratory 24 24 24 Rate Respiratory Rate [denies] Blood Pressure 83/39 83/39 83/40 O2 Sat by Pulse 94 94 94 Oximetry 08/19/17 08/19/17 08/19/17 04:00 04:04 04:11 Temperature 99.4 F Pulse Rate 78 83 Respiratory 24 24 Rate Respiratory Rate [denies] Blood Pressure 93/45 93/45 O2 Sat by Pulse 95 94 Oximetry 08/19/17 08/19/17 08/19/17 04:21 04:30 04:41 Temperature Pulse Rate 81 81 89 Respiratory 24 24 24 Rate Respiratory Rate [denies] Blood Pressure 93/45 102/49 93/45 O2 Sat by Pulse 92 92 95 Oximetry 08/19/17 08/19/17 08/19/17 04:51 05:00 05:01 Temperature Pulse Rate 104 H 85 99 H Respiratory 24 24 Rate Respiratory Rate [denies] Blood Pressure 93/45 128/59 130/75 O2 Sat by Pulse 96 95 96 Oximetry 08/19/17 08/19/17 08/19/17 05:11 05:15 05:21 Temperature Pulse Rate 93 H 88 Respiratory 24 21 Rate Respiratory Rate [denies] Blood Pressure 130/75 130/75 O2 Sat by Pulse 94 95 96 Oximetry 08/19/17 08/19/17 08/19/17 05:30 05:41 05:51 Temperature Pulse Rate 84 85 80 Respiratory 24 24 24 Rate Respiratory Rate [denies] Blood Pressure 128/59 128/59 128/59 O2 Sat by Pulse 95 95 95 Oximetry 08/19/17 08/19/17 08/19/17 05:54 06:00 06:11 Temperature Pulse Rate 80 88 85 Respiratory 23 24 Rate Respiratory Rate [denies] Blood Pressure 116/67 116/67 O2 Sat by Pulse 95 95 95 Oximetry 08/19/17 08/19/17 08/19/17 06:15 06:21 06:30 Temperature Pulse Rate 85 79 83 Respiratory 24 24 Rate Respiratory Rate [denies] Blood Pressure 116/67 112/63 O2 Sat by Pulse 95 95 93 Oximetry 08/19/17 08/19/17 08/19/17 07:00 07:30 08:00 Temperature 98.9 F Pulse Rate 98 H 75 95 H Respiratory 24 24 25 H Rate Respiratory Rate [denies] Blood Pressure 132/78 122/61 125/65 O2 Sat by Pulse 96 96 97 Oximetry 08/19/17 08/19/17 08/19/17 08:30 09:00 09:09 Temperature Pulse Rate 77 89 83 Respiratory 24 24 Rate Respiratory Rate [denies] Blood Pressure 131/67 132/78 132/78 O2 Sat by Pulse 96 99 96 Oximetry 08/19/17 08/19/17 08/19/17 09:30 10:00 10:30 Temperature Pulse Rate 86 76 89 Respiratory 24 23 24 Rate Respiratory 22 Rate [denies] Blood Pressure 133/60 124/52 120/59 O2 Sat by Pulse 96 96 95 Oximetry 08/19/17 08/19/17 08/19/17 11:00 11:30 12:00 Temperature Pulse Rate 76 71 71 Respiratory 24 24 24 Rate Respiratory Rate [denies] Blood Pressure 108/58 117/54 117/54 O2 Sat by Pulse 96 97 95 Oximetry 08/19/17 08/19/17 08/19/17 12:31 13:01 13:30 Temperature Pulse Rate 84 79 74 Respiratory 24 24 25 H Rate Respiratory Rate [denies] Blood Pressure 139/66 138/60 128/55 O2 Sat by Pulse 95 93 94 Oximetry 08/19/17 13:50 Temperature Pulse Rate 77 Respiratory Rate Respiratory Rate [denies] Blood Pressure 132/63 O2 Sat by Pulse 97 Oximetry Respiratory: Present: Clear to Ascultation, Other. Absent: Rales, Ronchi Cardiology: regular, S1S2 Gastrointestinal: normoactive bowel sounds, no tenderness, no distended - Lab 08/19/17 04:37 08/19/17 04:37 Most recent lab results Calcium 8.4 mg/dL (8.4-10.2) 08/19/17 04:37 Phosphorus 1.00 mg/dL (2.5-4.5) L 08/19/17 04:37 Magnesium 2.20 mg/dL (1.7-2.3) 08/19/17 04:37 Urine Creatinine 436.1 mg/dL (0.1-20.0) H 08/19/17 13:40 Urine Sodium 29 mEq/L 08/19/17 13:40 Urine Total Protein 140 mg/dL (5-11.8) H 08/19/17 13:40
[2017-08-19] MEDS: DIPRIVAN 10 MG/ML 1,000 MG/100 ML BOTTLE IV SCH (16:00)
[2017-08-19] MEDS ORDERED: VANCOMYCIN PHARMACY TO DOSE IV SCH (17:00)
[2017-08-19] MEDS ORDERED: [UNRECOGNIZED DRUG - REMARK] IV ONE (19:00)
[2017-08-19] MEDS: BROVANA NEBU IH SCH (20:08)
[2017-08-19] MEDS: ATIVAN IV PRN (23:06)
--- NOTE | 2017-08-19 23:26 | XRay Report ---
FINAL REPORT PROCEDURE: Abdomen. TECHNIQUE: Supine AP view. HISTORY: Nasogastric tube placement. COMPARISON: No prior studies are available for comparison. FINDINGS: The bowel gas pattern is normal as far as visualized. A nasogastric tube terminates near the gastroesophageal junction. The proximal side hole is definitely within the esophagus. The soft tissues are unremarkable. The regional skeleton appears intact. IMPRESSION: Suboptimal positioning of the nasogastric tube.
--- NOTE | 2017-08-20 01:48 | XRay Report ---
FINAL REPORT PROCEDURE: XR ABDOMEN 1V AP TECHNIQUE: Abdominal radiograph, single supine AP view. HISTORY: OGT placement after advanced, f/u COMPARISON: No prior studies are available for comparison. FINDINGS: Bowel gas pattern:Nonobstructive. Masses or calcifications:None. Bony structures:No significant abnormality. Other:There is an NG tube in the stomach.. IMPRESSION: No acute abnormality there is an NG tube is in the stomach.
[2017-08-20] MEDS: DUONEB *Not for PRN Use IH SCH ×4 (03:08→19:47)
[2017-08-20] MEDS: NACL 0.9% 1000 ML 1,000 ML IV SCH ×2 (04:23→21:08)
[2017-08-20 04:33] LABS: Hematocrit 42.1 % (35.5-45.6); Hemoglobin 13.8 gm/dl (11.8-15.2); Mean Corpuscular HGB Conc 33 % (32-34); Mean Corpuscular Hemoglobin 29 pg (28-32); Mean Corpuscular Volume 87 fl (84-94); Platelet Count 328 K/mm3 (140-440); Red Blood Count 4.84 M/mm3 (3.65-5.03)
[2017-08-20 04:38] LABS: White Blood Count 26.5 K/mm3 (4.5-11.0)
[2017-08-20 04:57] LABS: Albumin 4.1 g/dL (3.9-5); Albumin/Globulin Ratio 1.3 %; BUN/Creatinine Ratio 10.23; Bilirubin,Total 0.3 mg/dL (0.1-1.2); Calcium 8.4 mg/dL (8.4-10.2); Chloride 104.4 mmol/L (98-107); Phosphorous 7.3 mg/dL (2.5-4.5); Total Protein 7.2 g/dL (6.3-8.2)
[2017-08-20 05:01] LABS: Potassium 6.1 mmol/L (3.6-5.0)
[2017-08-20] MEDS ORDERED: D50W (25GM) Syringe IV STA (06:20)
[2017-08-20] MEDS ORDERED: CALCIUM GLUCONATE 1,000 MG in NACL 0.9% 100 ML IV STA (06:20)
[2017-08-20] MEDS ORDERED: LASIX IV STA (06:20)
[2017-08-20 06:37] LABS: ISTAT Base Excess -5; ISTAT PCO2 48.7 (35-45); ISTAT PH 7.263 (7.35-7.45); ISTAT PO2 90 (80-105); ISTAT SO2 95; ISTAT TCO2 23
[2017-08-20] MEDS: fentaNYL DRIP Premix 2,000 MCG/100 ML BAG IV SCH ×4 (06:58→22:57)
[2017-08-20 08:23] LABS: Anisocytosis Few; Blastocytes % (Manual) 0 %; Diff Status Complete; Eosinophils % (Manual) 0 % (0.0-4.3)
--- NOTE | 2017-08-20 08:38 | Progress Note ---
Assessment and Plan Assessment and plan: Acute resp faillure due to asthma exacerbation. He is now intubated on ventilator. Pulmonology following. Asthma exacerbation. On solumedrol, levaquin, Duoneb Hyperkalemia. Insulin iv and Calcoium given. Add one dose of Kayexalate and recheck Leukocytosis worsening, 26.5. This maybe SIRS. To r/o sepsis. On empiric Levaquin and Vancomycin. Blood cultures drawn Acute Kidney Injury due to Acute tubular necrosis. Function is worsening. Creatinine 4.3 today, from 2.9 yesterday and was 1.1 on admission. Strict I/ O. Nephrology following DVT prophylaxis with Lovenox. Full code status History Interval history: Patient with acute resp failure due to asthma exacerbation Hospitalist Physical - Physical exam Narrative exam: Gen Appearance: Not in acute distress,intubated HEENT: normocephalic, atraumatic Neck: supple, no JVD Lungs: Clear to auscultation, bilaterally, no rales, no wheeze Heart: S1 and S2 regular, no murmurs, rubs or gallop Abdomen: Soft , non tender, non distended, normal bowel sounds Extremity: No edema, no clubbing or cyanosis, Neuro : Intubated,sedated - Constitutional Vitals: Temp Pulse Resp BP Pulse Ox 99.2 F 127 H 9 L 129/102 94 08/20/17 04:30 08/20/17 07:31 08/20/17 07:31 08/20/17 07:31 08/20/17 07:31 General appearance: Present: no acute distress Results - Labs CBC & Chem 7: 08/20/17 04:04 08/20/17 10:34 Labs: Laboratory Last Values WBC 26.5 K/mm3 (4.5-11.0) H 08/20/17 04:04 RBC 4.84 M/mm3 (3.65-5.03) 08/20/17 04:04 Hgb 13.8 gm/dl (11.8-15.2) 08/20/17 04:04 Hct 42.1 % (35.5-45.6) 08/20/17 04:04 MCV 87 fl (84-94) 08/20/17 04:04 MCH 29 pg (28-32) 08/20/17 04:04 MCHC 33 % (32-34) 08/20/17 04:04 RDW 15.0 % (13.2-15.2) 08/20/17 04:04 Plt Count 328 K/mm3 (140-440) 08/20/17 04:04 Lymph % (Auto) 6.1 % (13.4-35.0) L 08/19/17 04:37 [place] % (Auto) 4.1 % (0.0-7.3) 08/19/17 04:37 Eos % (Auto) 0.0 % (0.0-4.3) 08/19/17 04:37 Baso % (Auto) 0.1 % (0.0-1.8) 08/19/17 04:37 Lymph # 1.1 K/mm3 (1.2-5.4) L 08/19/17 04:37 [place] # 0.7 K/mm3 (0.0-0.8) 08/19/17 04:37 Eos # 0.0 K/mm3 (0.0-0.4) 08/19/17 04:37 Baso # 0.0 K/mm3 (0.0-0.1) 08/19/17 04:37 Add Manual Diff Complete 08/20/17 04:04 Total Counted 100 08/20/17 04:04 Seg Neutrophils % Progress Man 08/20/17 04:04 Seg Neuts % (Manual) 60.0 % (40.0-70.0) 08/20/17 04:04 Band Neutrophils % 23.0 % 08/20/17 04:04 Lymphocytes % (Manual) 12.0 % (13.4-35.0) L 08/20/17 04:04 Reactive Lymphs % (Man) 0 % 08/20/17 04:04 Monocytes % (Manual) 5.0 % (0.0-7.3) 08/20/17 04:04 Eosinophils % (Manual) 0 % (0.0-4.3) 08/20/17 04:04 Basophils % (Manual) 0 % (0.0-1.8) 08/18/17 08:32 Metamyelocytes % 0 % 08/20/17 04:04 Myelocytes % 0 % 08/20/17 04:04 Promyelocytes % 0 % 08/20/17 04:04 Blast Cells % 0 % 08/20/17 04:04 Nucleated RBC % Not Reportable 08/20/17 04:04 Seg Neutrophils # 16.2 K/mm3 (1.8-7.7) H 08/19/17 04:37 Seg Neutrophils # Man 15.9 K/mm3 (1.8-7.7) H 08/20/17 04:04 Band Neutrophils # 6.1 K/mm3 08/20/17 04:04 Lymphocytes # (Manual) 3.2 K/mm3 (1.2-5.4) 08/20/17 04:04 Abs React Lymphs (Man) 0.0 K/mm3 08/20/17 04:04 Monocytes # (Manual) 1.3 K/mm3 (0.0-0.8) H 08/20/17 04:04 Eosinophils # (Manual) 0.0 K/mm3 (0.0-0.4) 08/20/17 04:04 Basophils # (Manual) 0.0 K/mm3 (0.0-0.1) 08/20/17 04:04 Metamyelocytes # 0.0 K/mm3 08/20/17 04:04 Myelocytes # 0.0 K/mm3 08/20/17 04:04 Promyelocytes # 0.0 K/mm3 08/20/17 04:04 Blast Cells # 0.0 K/mm3 08/20/17 04:04 WBC Morphology Not Reportable 08/20/17 04:04 Hypersegmented Neuts Not Reportable 08/20/17 04:04 Hyposegmented Neuts Not Reportable 08/20/17 04:04 Hypogranular Neuts Not Reportable 08/20/17 04:04 Smudge Cells Not Reportable 08/20/17 04:04 Toxic Granulation Not Reportable 08/20/17 04:04 Toxic Vacuolation Not Reportable 08/20/17 04:04 Dohle Bodies Not Reportable 08/20/17 04:04 Pelger-Huet Anomaly Not Reportable 08/20/17 04:04 Merry Rods Not Reportable 08/20/17 04:04 Platelet Estimate Appears normal 08/20/17 04:04 Clumped Platelets Not Reportable 08/20/17 04:04 Plt Clumps, EDTA Not Reportable 08/20/17 04:04 Large Platelets Not Reportable 08/20/17 04:04 Giant Platelets Not Reportable 08/20/17 04:04 Platelet Satelliting Not Reportable 08/20/17 04:04 Plt Morphology Comment Not Reportable 08/20/17 04:04 RBC Morphology Not Reportable 08/20/17 04:04 Dimorphic RBCs Not Reportable 08/20/17 04:04 Polychromasia Not Reportable 08/20/17 04:04 Hypochromasia Not Reportable 08/20/17 04:04 Poikilocytosis Not Reportable 08/20/17 04:04 Anisocytosis Few 08/20/17 04:04 Microcytosis Not Reportable 08/20/17 04:04 Macrocytosis Not Reportable 08/20/17 04:04 Spherocytes Not Reportable 08/20/17 04:04 Pappenheimer Bodies Not Reportable 08/20/17 04:04 Sickle Cells Not Reportable 08/20/17 04:04 Target Cells Not Reportable 08/20/17 04:04 Tear Drop Cells Not Reportable 08/20/17 04:04 Ovalocytes Not Reportable 08/20/17 04:04 Helmet Cells Not Reportable 08/20/17 04:04 [place] Bodies Not Reportable 08/20/17 04:04 [place] Rings Not Reportable 08/20/17 04:04 [place] Cells Not Reportable 08/20/17 04:04 Bite Cells Not Reportable 08/20/17 04:04 Crenated Cell Not Reportable 08/20/17 04:04 Elliptocytes Not Reportable 08/20/17 04:04 Acanthocytes (Spur) Not Reportable 08/20/17 04:04 Rouleaux Not Reportable 08/20/17 04:04 Hemoglobin C Crystals Not Reportable 08/20/17 04:04 Schistocytes Not Reportable 08/20/17 04:04 Malaria parasites Not Reportable 08/20/17 04:04 Sudhakar Bodies Not Reportable 08/20/17 04:04 Hem Pathologist Commnt No 08/20/17 04:04 D-Dimer 698.53 ng/mlDDU (0-234) H 08/19/17 15:03 POC ABG pH 7.263 (7.35-7.45) L 08/20/17 05:18 POC ABG pCO2 48.7 (35-45) H 08/20/17 05:18 POC ABG pO2 90 (80-105) 08/20/17 05:18 POC ABG HCO3 22.0 08/20/17 05:18 POC ABG Total CO2 23 08/20/17 05:18 POC ABG O2 Sat 95 08/20/17 05:18 POC ABG Base Excess -5 08/20/17 05:18 FiO2 40 % 08/20/17 05:18 Sodium 142 mmol/L (137-145) 08/19/17 04:37 Potassium 6.1 mmol/L (3.6-5.0) H* D 08/20/17 04:04 Chloride 105.2 mmol/L (98-107) 08/19/17 04:37 Carbon Dioxide 20 mmol/L (22-30) L 08/20/17 04:04 Anion Gap 18 mmol/L 08/19/17 04:37 BUN 44 mg/dL (9-20) H 08/20/17 04:04 Creatinine 4.3 mg/dL (0.8-1.5) H 08/20/17 04:04 Estimated GFR 18 ml/min 08/20/17 04:04 BUN/Creatinine Ratio 10.23 % 08/20/17 04:04 Glucose 111 mg/dL (75-100) H 08/20/17 04:04 POC Glucose 139 (70-105) H 08/18/17 08:12 Osmolality 319 Mosm/kg 08/20/17 04:04 Lactic Acid 1.40 mmol/L (0.7-2.0) 08/18/17 21:14 Calcium 8.4 mg/dL (8.4-10.2) 08/20/17 04:04 Phosphorus 7.30 mg/dL (2.5-4.5) H D 08/20/17 04:04 Magnesium 2.20 mg/dL (1.7-2.3) 08/19/17 04:37 Total Bilirubin 0.30 mg/dL (0.1-1.2) 08/20/17 04:04 AST 30 units/L (5-40) 08/20/17 04:04 ALT 19 units/L (7-56) 08/20/17 04:04 Alkaline Phosphatase 67 units/L (35-129) 08/20/17 04:04 Troponin T < 0.010 ng/mL (0.00-0.029) 08/18/17 08:32 C-Reactive Protein 3.30 mg/dL (0.00-1.30) H 08/19/17 18:43 NT-Pro-B Natriuret Pep 18.05 pg/mL (0-450) 08/18/17 08:32 Total Protein 7.2 g/dL (6.3-8.2) 08/20/17 04:04 Albumin 4.1 g/dL (3.9-5) 08/20/17 04:04 Albumin/Globulin Ratio 1.3 % 08/20/17 04:04 Urine Color Yellow (Yellow) 08/18/17 17:26 Urine Turbidity Clear (Clear) 08/18/17 17:26 Urine pH 5.0 (5.0-7.0) 08/18/17 17:26 Ur Specific [place] 1.026 (1.003-1.030) 08/18/17 17:26 Urine Protein >500 mg/dL (Negative) 08/18/17 17:26 Urine Glucose (UA) 50 mg/dL (Negative) 08/18/17 17:26 Urine Ketones Tr mg/dL (Negative) 08/18/17 17:26 Urine Blood Sm (Negative) 08/18/17 17:26 Urine Nitrite Neg (Negative) 08/18/17 17:26 Urine Bilirubin Neg (Negative) 08/18/17 17:26 Urine Urobilinogen < 2.0 mg/dL (<2.0) 08/18/17 17:26 Ur Leukocyte Esterase Neg (Negative) 08/18/17 17:26 Urine WBC (Auto) 9.0 /HPF (0.0-6.0) H 08/18/17 17:26 Urine RBC (Auto) 5.0 /HPF (0.0-6.0) 08/18/17 17:26 U Epithel Cells (Auto) < 1.0 /HPF (0-13.0) 08/18/17 17:26 Urine Mucus Few /HPF 08/18/17 17:26 Urine Eosinophils None seen (None Seen) 08/19/17 13:40 Urine Osmolality 542 Mosm/kg 08/19/17 13:40 Urine Creatinine 436.1 mg/dL (0.1-20.0) H 08/19/17 13:40 Protein/Creatinin Ratio 0.33 08/19/17 13:40 Urine Sodium 29 mEq/L 08/19/17 13:40 Urine Total Protein 140 mg/dL (5-11.8) H 08/19/17 13:40
[2017-08-20] MEDS: BROVANA NEBU IH SCH ×2 (08:52→19:46)
[2017-08-20] MEDS: PEPCID IV SCH (10:00)
--- NOTE | 2017-08-20 10:07 | Consultation ---
CONSULTING PHYSICIAN: Dr. Puga, hospitalist. REASON FOR CONSULTATION: Critical care management, acute respiratory failure on mechanical ventilatory support. CHIEF COMPLAINT AND HISTORY OF PRESENT ILLNESS: The patient is a 47-year-old -[place] male with past medical according to the sister significant for a diagnosis of lifelong asthma, never been on mechanical ventilatory support presented to the Emergency Room complaining of shortness of breath. He told them that this has been going on for about 5 days then developing dyspnea on exertion and ambulation with that. He stated that he had an argument with his and then he has had increasing shortness of breath since the morning of presentation and called 911 and the [facility] brought him to the Emergency Room. He had denied any fevers, any chills, any cough or expectoration. Denied any sick contacts. He was evaluated in the Emergency Room, initially he was placed on BiPAP bilevel positive airway pressure ventilation therapy and it seems like he tolerated that for a little while; however, he seems to have decompensated in the Emergency Room and he was emergently intubated. Post-intubation, he was transferred into the intensive care unit. When I stopped by to see him, he was on mechanical ventilator support. He was on about 70% FiO2, perhaps a little bit to wean. He denied any chest pains. It turns out that he has had a history of poorly controlled asthma. He also has a history of tobacco abuse, questioning himself and the sister, it seems like he probably has a 10+ pack year tobacco smoking history thereabouts. He has not been compliant with his medications at home. He denied any new onset of leg pain or swelling either unilaterally or bilaterally or any suggestion of deep venous thrombosis. That really is as much of the history of presentation as I have. PAST MEDICAL HISTORY: According to the records he has a history of; 1. Asthma. 2. He is obese. 3. Reportedly, he has a history of hypertension also. PAST SURGICAL HISTORY: He has had surgery to the left foot, nature of the surgery is unknown. FAMILY AND SOCIAL HISTORY: Lives in the community. He is . According to the history, he has about a 64-[id number]-lenz tobacco smoking history. Family history is also positive for coronary artery disease and hypertension. Denies alcohol or illicit drug use or abuse. REVIEW OF SYSTEMS: A little difficult to obtain based on his medical and mental condition; however, since he has been here, no gross hematochezia or melena. No gross hematuria. He denies dysuria. No hematemesis. No hemoptysis either now or prior to admission. Complete 14-system review of systems obtained as best as I could. Pertinent positives and/or negatives as in body of history above; otherwise, they are noncontributory. PHYSICAL EXAMINATION: VITAL SIGNS: On presentation, initial temperature I can find, he was afebrile, temperature was 98.5; presentation pulse was 130, respiratory rate was 32, blood pressure 129/85, oxygen sats were 93%, inspired oxygen concentration at the time was not recorded. HEAD, EYES, EARS, NOSE AND THROAT: Pupils are equal, round, about 3 mm, reactive to light. Extraocular muscle and movements appeared intact. Endotracheal tube was in place, taped at the lips around 20 to 24 cm. NECK: Grossly, there were no palpable lymph nodes in the supraclavicular or submandibular lymph node chains. LUNGS: Auscultation of both lung avalos significant for bilateral expiratory wheezing. HEART: Heart sounds 1 and 2 are heard. They were regular in rate and rhythm at the time of my evaluation. ABDOMEN: Full, bowel sounds are positive. It was nontender. It was soft. EXTREMITIES: Without overt digital clubbing, cyanosis, or pedal edema. NEUROLOGIC: Grossly nonfocal. LABORATORY DATA: From my review are as follows: Admission white cell count 22,000 with a hemoglobin of 15.9, hematocrit of 46.1, platelet count 377, no band forms reported. Arterial blood gas showed a pH of 7.22, pCO2 of 65, pO2 of 74 that was on 50% FiO2 at that time. Serum sodium was 141, potassium was 3.2, chloride 103, bicarbonate 23, BUN 9, creatinine 1.1, and glucose was 139. Lactic acid level was within normal limits. Troponin within normal limits. Urinalysis negative for nitrites and leukocyte esterase, he was filling protein in the urine, and 9 white cells per high power field. Today, white count is down to 18.1. Arterial blood gas showed a pH of 7.32, pCO2 of 45, pO2 of 83 that is on 60% FiO2 assist control mode of ventilation with a sed rate of 24, PEEP of 5 and tidal volumes of 500. IMAGING: Radiographic studies have been reviewed. I have also reviewed the radiologist's interpretation. Chest x-ray initially did not show any focal infiltrates. Post-intubation endotracheal tube tip is at the level of the aortic knob, it is slightly lordotic film, it is about 4-5 cm above the rashi. Cardiovascular silhouette is within normal limits. No gross pneumothorax, no gross bony fracture. ASSESSMENT AND PLAN: We have a middle-aged gentleman with an acute asthma exacerbation on the face of things, although he looks the picture is more like so-called asthmatic bronchitis with changes suggesting chronic lung disease. Respiratory heller, he will remain on mechanical ventilatory support. I am bothered about hypoxemia in this gentleman with only asthma as his diagnosis. Based on the diagnosis, I do feel like he will benefit from a venous thromboembolic disorder workup. The plan will be to get a D-dimer level, plus or minus lower extremity Dopplers and make deductions from that point, I have a relatively low pretest clinical probability; however, I am bothered by the hypoxemia, which is certainly not one of the criteria that I looking at essentially for risk stratification. Nonetheless, we will rule that out, it is appropriate. Bronchodilators will be scheduled and continued as scheduled. I will also add long-acting bronchodilators in the form of Brovana. I will hold on inhaled corticosteroids, Solu-Medrol will be continued, which is systemic steroids. Ventilator bundles will be addressed daily, aspiration precautions will be maintained. Oxygen will be weaned to keep sats greater than or equal to about 94% and hopefully if possible we will start weaning trials as early as today. From a cardiovascular standpoint, relatively hemodynamically stable, no hypotensive episodes. We will follow him clinically. Initial acute coronary syndrome workup is unremarkable. His BNP is also within normal limits. From a GI and nutritional standpoint, enteral nutrition will be the feeding modality of choice. A feeding tube will be placed, especially if he looks like he can be extubated today and Nutritional consult will be placed. He is appropriately on GI prophylaxis now. From an Infectious Disease standpoint, no signs and symptoms of overwhelming sepsis. He is on Levaquin monotherapy. We will continue that. I will get a CRP level and based that result decisions will be made in terms of de-escalation of antibiotics. Cultures have been drawn and those will be followed. Anti-infectives will ultimately be deescalated based on results of clinical and microbiologic data. From a renal standpoint, no major electrolyte abnormalities; however, the serum creatinine is up to 2.9 today. Nephrology has been consulted and I will defer to them. Inputs and outputs will be monitored. Electrolytes will be followed as necessary. From a [employer]OCI[employer] standpoint, the exam is grossly nonfocal. No acute indication for neuro imaging. We will follow him clinically. From a general and hospital healthcare maintenance standpoint, he has been placed on gastrointestinal and deep venous thrombosis prophylaxis. Flu and pneumonia vaccination will be per protocol. Thank you very much for the consult Dr. Puga. We will follow along and make further recommendations as picture progresses/becomes clearer. At this point, I spent 30-35 minutes of critical care time without overlap and excluding any procedural time that may be necessary. He is critically ill on life-sustaining interventions including mechanical ventilator support at risk for further deterioration including . [facility]# [id number] MARIELLE/CASA
[2017-08-20] MEDS: LEVAQUIN 750MG/150ML 750 MG/150 ML BAG IV SCH (10:11)
[2017-08-20] MEDS: LOVENOX SUB-Q SCH (10:12)
--- NOTE | 2017-08-20 10:21 | Progress Note ---
Assessment and Plan (1) Acute respiratory failure with hypoxia Current Visit: Yes Status: Acute Plan to address problem: Intubated on vent support (2) severe renal failure Current Visit: Yes Status: Acute Plan to address problem: Cr cont to rise, non oliguric orders for lasix , Iv insulin with D50W and calcium were given this AM, if cont to be hyperkalemic will start HD today LDH, Uric acid and CK ordered to r/o high cellular turn over process renal US negative for obstruction Obtain daily weights Renally dose medications Avoid Nephrotoxic agents Monitor renal function closely (3) Hypertensive emergency Current Visit: Yes Status: Acute Plan to address problem: Cardene drip (4) Hypophosphatemia Current Visit: Yes Status: Acute Plan to address problem: will d/c IV phos (5) SIRS (systemic inflammatory response syndrome) Current Visit: Yes Status: Acute Plan to address problem: On IV Solumedrol, Levaquin, vanco and IV hydration Subjective Date of service: 08/20/17 Principal diagnosis: severe renal failure Interval history: patient is intubated, follows simple commands Objective - Vital Signs Vital signs: Vital Signs - 12hr 08/19/17 08/19/17 08/19/17 22:31 22:45 23:01 Temperature Pulse Rate 99 H 145 H 118 H Pulse Rate [ Anterior Bilateral Throughout] Pulse Rate [ 145 H From Monitor] Respiratory 8 L 20 9 L Rate Respiratory Rate [Anterior Bilateral Throughout] Respiratory 20 Rate [denies] Blood Pressure 128/80 162/88 O2 Sat by Pulse 95 92 94 Oximetry 08/19/17 08/19/17 08/19/17 23:15 23:31 23:33 Temperature Pulse Rate 112 H 112 H 109 H Pulse Rate [ Anterior Bilateral Throughout] Pulse Rate [ From Monitor] Respiratory 11 L 16 Rate Respiratory Rate [Anterior Bilateral Throughout] Respiratory Rate [denies] Blood Pressure 134/64 134/64 O2 Sat by Pulse 91 90 91 Oximetry 08/20/17 08/20/17 08/20/17 00:00 00:30 00:42 Temperature Pulse Rate 107 H 110 H 115 H Pulse Rate [ Anterior Bilateral Throughout] Pulse Rate [ From Monitor] Respiratory 16 11 L Rate Respiratory Rate [Anterior Bilateral Throughout] Respiratory Rate [denies] Blood Pressure 114/66 151/95 151/95 O2 Sat by Pulse 91 92 94 Oximetry 0908/20/17 08/20/17 01:00 01:15 01:30 Temperature Pulse Rate 114 H 111 H Pulse Rate [ Anterior Bilateral Throughout] Pulse Rate [ From Monitor] Respiratory 12 11 L 11 L Rate Respiratory Rate [Anterior Bilateral Throughout] Respiratory Rate [denies] Blood Pressure 145/94 150/81 O2 Sat by Pulse 94 93 94 Oximetry 08/20/17 08/20/17 08/20/17 02:00 02:25 02:31 Temperature Pulse Rate 113 H 113 H 116 H Pulse Rate [ Anterior Bilateral Throughout] Pulse Rate [ From Monitor] Respiratory 8 L 12 10 L Rate Respiratory Rate [Anterior Bilateral Throughout] Respiratory Rate [denies] Blood Pressure 162/80 143/100 O2 Sat by Pulse 93 95 96 Oximetry 08/20/17 08/20/17 08/20/17 03:00 03:10 03:30 Temperature Pulse Rate 113 H 118 H Pulse Rate [ 101 H Anterior Bilateral Throughout] Pulse Rate [ From Monitor] Respiratory 14 13 Rate Respiratory 16 Rate [Anterior Bilateral Throughout] Respiratory Rate [denies] Blood Pressure 120/72 126/74 O2 Sat by Pulse 95 96 Oximetry 08/20/17 08/20/17 08/20/17 04:01 04:30 05:00 Temperature 99.2 F Pulse Rate 114 H 109 H 103 H Pulse Rate [ Anterior Bilateral Throughout] Pulse Rate [ From Monitor] Respiratory 8 L 8 L 16 Rate Respiratory Rate [Anterior Bilateral Throughout] Respiratory Rate [denies] Blood Pressure 149/78 135/89 122/75 O2 Sat by Pulse 96 92 94 Oximetry 08/20/17 08/20/17 08/20/17 05:06 05:15 05:30 Temperature Pulse Rate 101 H 102 H 98 H Pulse Rate [ Anterior Bilateral Throughout] Pulse Rate [ From Monitor] Respiratory 15 16 Rate Respiratory Rate [Anterior Bilateral Throughout] Respiratory Rate [denies] Blood Pressure 122/75 120/77 O2 Sat by Pulse 95 94 94 Oximetry 08/20/17 08/20/17 08/20/17 06:00 06:30 07:00 Temperature Pulse Rate 98 H 97 H 100 H Pulse Rate [ Anterior Bilateral Throughout] Pulse Rate [ From Monitor] Respiratory 15 16 8 L Rate Respiratory Rate [Anterior Bilateral Throughout] Respiratory Rate [denies] Blood Pressure 127/80 132/87 140/92 O2 Sat by Pulse 94 94 96 Oximetry 09/08/20/17 08/20/17 07:15 07:31 08:00 Temperature 98.1 F Pulse Rate 127 H Pulse Rate [ Anterior Bilateral Throughout] Pulse Rate [ From Monitor] Respiratory 12 9 L Rate Respiratory Rate [Anterior Bilateral Throughout] Respiratory Rate [denies] Blood Pressure 129/102 O2 Sat by Pulse 94 94 Oximetry 08/20/17 08/20/17 08/20/17 08:51 08:52 09:03 Temperature Pulse Rate 104 H Pulse Rate [ 109 H 108 H Anterior Bilateral Throughout] Pulse Rate [ From Monitor] Respiratory Rate Respiratory 20 22 Rate [Anterior Bilateral Throughout] Respiratory Rate [denies] Blood Pressure 144/81 O2 Sat by Pulse 96 Oximetry - General Appearance General appearance: obese, intubated EENT: ATNC, PERRL, mucous membranes dry Neck: no JVD, no carotid bruit Respiratory: Present: Rales, Ronchi Cardiology: regular, tachycardia, S1S2 Gastrointestinal: normoactive bowel sounds, no tenderness, no distended, no guarding Integumentary: no rash, warm and dry Neurologic: no focal deficit Musculoskeletal: other (no edema in BLE) Psychiatric: cooperative - Lab 08/20/17 04:04 08/20/17 04:04 Most recent lab results Calcium 8.4 mg/dL (8.4-10.2) 08/20/17 04:04 Phosphorus 7.30 mg/dL (2.5-4.5) H D 08/20/17 04:04 Magnesium 2.20 mg/dL (1.7-2.3) 08/19/17 04:37 Urine Creatinine 436.1 mg/dL (0.1-20.0) H 08/19/17 13:40 Urine Sodium 29 mEq/L 08/19/17 13:40 Urine Total Protein 140 mg/dL (5-11.8) H 08/19/17 13:40
[2017-08-20] MEDS: PEPCID PO SCH (11:00)
[2017-08-20 11:15] LABS: Uric Acid 9.7 mg/dL (3.5-7.6)
[2017-08-20 11:18] LABS: BUN/Creatinine Ratio 11.55; Calcium 8.2 mg/dL (8.4-10.2); Chloride 104.9 mmol/L (98-107); Potassium 4.8 mmol/L (3.6-5.0)
[2017-08-20 11:30] LABS: ISTAT Base Excess -5; ISTAT HCO3 22.8; ISTAT PCO2 54.1 (35-45); ISTAT PH 7.232 (7.35-7.45); ISTAT PO2 75 (80-105); ISTAT SO2 92; ISTAT TCO2 24
[2017-08-20] MEDS ORDERED: PANCREAZE DR 10,500 UNIT FEEDTUBE PRN (11:44)
[2017-08-20] MEDS ORDERED: SIMPLE SYRUP FEEDTUBE PRN ×2 (11:44)
[2017-08-20] MEDS ORDERED: SODIUM BICARBONATE FEEDTUBE PRN (11:44)
--- NOTE | 2017-08-20 16:01 | Progress Note ---
Assessment and Plan - Patient Problems (1) Acute respiratory failure with hypoxia Current Visit: Yes Status: Acute Plan to address problem: - remains on MVS - continue to wean oxygen for sats >/= 94% - increase TV to 500mls re: hypercapnia - daily sedation vacations and lighten sedation - continue bronchodilators and pulmonary toilet - continue aspiration precautions / Address VAP bundle daily - repeat ABG tonight and adjust vent as tolerated (2) Hypertensive emergency Current Visit: Yes Status: Acute Plan to address problem: - off cardene drip now - titrate oral hypertensives (3) GUZMAN (acute kidney injury) Current Visit: Yes Status: Acute Plan to address problem: - hyperkalemia corrected - oliguric now - nephrology evaluation ongoing - may need dialysis (4) Obesity, morbid Current Visit: Yes Status: Acute Plan to address problem: - weight loss counselled - outpatient sleep clinic evaluation advised (5) SIRS (systemic inflammatory response syndrome) Current Visit: Yes Status: Acute Plan to address problem: - improved - continue empiric AB's and follow cultures - continue to treat azotemia +/- dialysis - prn analgesia (6) Leucocytosis Current Visit: Yes Status: Acute Qualifiers: Leukocytosis type: L Plan to address problem: - WBC noted - suspect steroid + stress demarginalization - CRP & Lactate unremarkable (will trend) - continue empiric levaquin and follow cultures (7) Discharge planning issues Current Visit: Yes Status: Acute Plan to address problem: - he remains critically ill on life sustaining interventions including MVS and at risk for further deterioration including ...30' CCT today Subjective Date of service: 08/20/17 Principal diagnosis: Acute Hypoxemic Respiratory Failure; GUZMAN; Morbid Obesity Interval history: Seen and examined at bedside; 24 hour events reviewed; nursing and respiratory care staff consulted; no adverse overnight events reported to me; remains on MVS ; mixed acidosis with hypercapnia; clinically without overt CO2 narcosis; azotemia is persistent; hyperkalemia has been treated but may need HD ultimately Objective Vital Signs - 12hr 08/20/17 08/20/17 08/20/17 04:01 04:30 05:00 Temperature 99.2 F Pulse Rate 114 H 109 H 103 H Pulse Rate [ Anterior Bilateral Throughout] Respiratory 8 L 8 L 16 Rate Respiratory Rate [Anterior Bilateral Throughout] Blood Pressure 149/78 135/89 122/75 O2 Sat by Pulse 96 92 94 Oximetry 08/20/17 08/20/17 08/20/17 05:06 05:15 05:30 Temperature Pulse Rate 101 H 102 H 98 H Pulse Rate [ Anterior Bilateral Throughout] Respiratory 15 16 Rate Respiratory Rate [Anterior Bilateral Throughout] Blood Pressure 122/75 120/77 O2 Sat by Pulse 95 94 94 Oximetry 08/20/17 08/20/17 08/20/17 06:00 06:30 07:00 Temperature Pulse Rate 98 H 97 H 100 H Pulse Rate [ Anterior Bilateral Throughout] Respiratory 15 16 8 L Rate Respiratory Rate [Anterior Bilateral Throughout] Blood Pressure 127/80 132/87 140/92 O2 Sat by Pulse 94 94 96 Oximetry 08/20/17 08/20/17 08/20/17 07:15 07:31 08:00 Temperature 98.1 F Pulse Rate 127 H 115 H Pulse Rate [ Anterior Bilateral Throughout] Respiratory 12 9 L 7 L Rate Respiratory Rate [Anterior Bilateral Throughout] Blood Pressure 129/102 129/102 O2 Sat by Pulse 94 94 95 Oximetry 08/20/17 08/20/17 08/20/17 08:30 08:51 08:52 Temperature Pulse Rate 109 H 104 H Pulse Rate [ 109 H Anterior Bilateral Throughout] Respiratory 7 L Rate Respiratory 20 Rate [Anterior Bilateral Throughout] Blood Pressure 144/81 144/81 O2 Sat by Pulse 97 96 Oximetry 08/20/17 08/20/17 08/20/17 09:00 09:03 09:30 Temperature Pulse Rate 109 H 106 H Pulse Rate [ 108 H Anterior Bilateral Throughout] Respiratory 19 13 Rate Respiratory 22 Rate [Anterior Bilateral Throughout] Blood Pressure 141/72 153/75 O2 Sat by Pulse 97 95 Oximetry 08/20/17 08/20/17 08/20/17 10:00 10:30 11:01 Temperature Pulse Rate 99 H 96 H 89 Pulse Rate [ Anterior Bilateral Throughout] Respiratory 8 L 20 20 Rate Respiratory Rate [Anterior Bilateral Throughout] Blood Pressure 142/73 133/62 117/58 O2 Sat by Pulse 97 96 97 Oximetry 08/20/17 08/20/17 08/20/17 11:30 11:43 12:00 Temperature Pulse Rate 81 88 87 Pulse Rate [ Anterior Bilateral Throughout] Respiratory 20 20 Rate Respiratory Rate [Anterior Bilateral Throughout] Blood Pressure 114/54 114/54 119/64 O2 Sat by Pulse 96 96 96 Oximetry 08/20/17 08/20/17 08/20/17 12:30 13:00 13:30 Temperature Pulse Rate 85 81 102 H Pulse Rate [ Anterior Bilateral Throughout] Respiratory 20 15 20 Rate Respiratory Rate [Anterior Bilateral Throughout] Blood Pressure 114/63 123/69 122/68 O2 Sat by Pulse 96 96 96 Oximetry 08/20/17 08/20/17 08/20/17 13:53 14:07 14:14 Temperature Pulse Rate 97 H Pulse Rate [ 87 81 Anterior Bilateral Throughout] Respiratory Rate Respiratory 20 20 Rate [Anterior Bilateral Throughout] Blood Pressure 119/55 O2 Sat by Pulse 95 Oximetry Constitutional: no acute distress, other (sedated RASS 1) Eyes: non-icteric ENT: oropharynx moist Neck: supple, no lymphadenopathy, other (large neck circumfrence; possible ANGIE) Ascultation: Bilateral: diminished breath sounds, rhonchi (scant in bases) Cardiovascular: regular rate and rhythm Gastrointestinal: normoactive bowel sounds, soft, non-tender, non-distended Integumentary: normal Extremities: no cyanosis, no edema, pulses normal, no ischemia or petechiae Neurologic: normal mental status, non-focal exam, pupils equal and round, motor strength normal and Psychiatric: mood appropriate, affect normal CBC and BMP: 08/20/17 04:04 08/20/17 10:34 ABG, PT/INR, D-dimer: ABG POC ABG pH 7.232 (7.35-7.45) L 08/20/17 08:51 POC ABG pCO2 54.1 (35-45) H 08/20/17 08:51 POC ABG pO2 75 (80-105) L 08/20/17 08:51 POC ABG HCO3 22.8 08/20/17 08:51 POC ABG Total CO2 24 08/20/17 08:51 POC ABG O2 Sat 92 08/20/17 08:51 PT/INR, D-dimer D-Dimer 698.53 ng/mlDDU (0-234) H 08/19/17 15:03 Abnormal lab findings: Abnormal Labs 08/18/17 08/18/17 08/19/17 16:54 17:26 04:37 WBC 18.1 H Lymph % (Auto) 6.1 L Lymph # 1.1 L Seg Neutrophils % 89.7 H Lymphocytes % (Manual) Seg Neutrophils # 16.2 H Seg Neutrophils # Man Monocytes # (Manual) D-Dimer POC ABG pH 7.231 L POC ABG pCO2 63.3 H POC ABG pO2 Potassium Carbon Dioxide BUN Creatinine Glucose POC Glucose Uric Acid Calcium Phosphorus Lactate Dehydrogenase Total Creatine Kinase C-Reactive Protein Albumin Urine WBC (Auto) 9.0 H Urine Creatinine Urine Total Protein 08/19/17 08/19/17 08/19/17 04:37 05:37 13:40 WBC Lymph % (Auto) Lymph # Seg Neutrophils % Lymphocytes % (Manual) Seg Neutrophils # Seg Neutrophils # Man Monocytes # (Manual) D-Dimer POC ABG pH 7.320 L POC ABG pCO2 POC ABG pO2 Potassium Carbon Dioxide BUN 22 H Creatinine 2.9 H D Glucose 124 H POC Glucose Uric Acid Calcium Phosphorus 1.00 L Lactate Dehydrogenase Total Creatine Kinase C-Reactive Protein Albumin 3.5 L Urine WBC (Auto) Urine Creatinine 430.8 H Urine Total Protein 144 H 08/19/17 08/19/17 08/19/17 13:40 15:03 18:43 WBC Lymph % (Auto) Lymph # Seg Neutrophils % Lymphocytes % (Manual) Seg Neutrophils # Seg Neutrophils # Man Monocytes # (Manual) D-Dimer 698.53 H POC ABG pH POC ABG pCO2 POC ABG pO2 Potassium Carbon Dioxide BUN Creatinine Glucose POC Glucose Uric Acid Calcium Phosphorus Lactate Dehydrogenase Total Creatine Kinase C-Reactive Protein 3.30 H Albumin Urine WBC (Auto) Urine Creatinine 436.1 H Urine Total Protein 140 H 08/20/17 08/20/17 08/20/17 04:04 04:04 05:18 WBC 26.5 H Lymph % (Auto) Lymph # Seg Neutrophils % Lymphocytes % (Manual) 12.0 L Seg Neutrophils # Seg Neutrophils # Man 15.9 H Monocytes # (Manual) 1.3 H D-Dimer POC ABG pH 7.263 L POC ABG pCO2 48.7 H POC ABG pO2 Potassium 6.1 H* D Carbon Dioxide 20 L BUN 44 H Creatinine 4.3 H Glucose 111 H POC Glucose Uric Acid Calcium Phosphorus 7.30 H D Lactate Dehydrogenase Total Creatine Kinase C-Reactive Protein Albumin Urine WBC (Auto) Urine Creatinine Urine Total Protein 08/20/17 08/20/17 08/20/17 08:51 10:02 10:34 WBC Lymph % (Auto) Lymph # Seg Neutrophils % Lymphocytes % (Manual) Seg Neutrophils # Seg Neutrophils # Man Monocytes # (Manual) D-Dimer POC ABG pH 7.232 L POC ABG pCO2 54.1 H POC ABG pO2 75 L Potassium Carbon Dioxide BUN 52 H Creatinine 4.5 H Glucose 118 H POC Glucose 110 H Uric Acid Calcium 8.2 L Phosphorus Lactate Dehydrogenase Total Creatine Kinase C-Reactive Protein Albumin Urine WBC (Auto) Urine Creatinine Urine Total Protein 08/20/17 10:34 WBC Lymph % (Auto) Lymph # Seg Neutrophils % Lymphocytes % (Manual) Seg Neutrophils # Seg Neutrophils # Man Monocytes # (Manual) D-Dimer POC ABG pH POC ABG pCO2 POC ABG pO2 Potassium Carbon Dioxide BUN Creatinine Glucose POC Glucose Uric Acid 9.7 H Calcium Phosphorus Lactate Dehydrogenase 250 H Total Creatine Kinase 623 H C-Reactive Protein Albumin Urine WBC (Auto) Urine Creatinine Urine Total Protein Chest x-ray: image reviewed
--- NOTE | 2017-08-20 17:22 | XRay Report ---
FINAL REPORT EXAM: XR CHEST 1V AP HISTORY: Pneumonia TECHNIQUE: AP portable view of the chest PRIORS: None. FINDINGS: Lines, tubes, and devices: Endotracheal 2 terminates 4.5 cm above the rashi. Nasogastric tube terminates below the left diaphragm, likely in the stomach. Lungs and pleura: Trachea is normal in position. Mild linear markings in the left base are likely related to atelectasis. Lungs are otherwise clear of consolidation, pleural effusion, vascular congestion, or pneumothorax. Cardiomediastinal silhouette: Cardiac and mediastinal silhouettes are unremarkable. Other: Bony structures are intact. IMPRESSION: Left basilar atelectasis.
[2017-08-20 22:14] LABS: ISTAT Base Excess -3; ISTAT HCO3 23.3; ISTAT PCO2 45.8 (35-45); ISTAT PH 7.314 (7.35-7.45); ISTAT PO2 114 (80-105); ISTAT SO2 98; ISTAT TCO2 25
[2017-08-21] MEDS: ATIVAN IV PRN ×3 (00:16→21:36)
[2017-08-21] MEDS: fentaNYL DRIP Premix 2,000 MCG/100 ML BAG IV SCH ×4 (02:36→23:17)
[2017-08-21] MEDS: DUONEB *Not for PRN Use IH SCH ×4 (03:01→19:46)
[2017-08-21 05:09] LABS: ISTAT Base Excess -2; ISTAT HCO3 24.2; ISTAT PCO2 46.8 (35-45); ISTAT PH 7.321 (7.35-7.45); ISTAT PO2 115 (80-105); ISTAT SO2 98; ISTAT TCO2 26
[2017-08-21 06:40] LABS: Hemoglobin 11.7 gm/dl (11.8-15.2); Mean Corpuscular HGB Conc 33 % (32-34); Mean Corpuscular Hemoglobin 29 pg (28-32); Mean Corpuscular Volume 86 fl (84-94); Platelet Count 241 K/mm3 (140-440); Red Blood Count 4.07 M/mm3 (3.65-5.03); Red Cell Distribution Width 14.8 % (13.2-15.2); White Blood Count 14.2 K/mm3 (4.5-11.0)
[2017-08-21 06:59] LABS: Hematocrit 36.9 % (35.5-45.6)
[2017-08-21 08:11] LABS: Blastocytes % (Manual) 0 %; Eosinophils % (Manual) 0 % (0.0-4.3)
[2017-08-21 08:12] LABS: Anisocytosis Few; Diff Status Complete
[2017-08-21] MEDS: BROVANA NEBU IH SCH ×2 (08:15→19:46)
--- NOTE | 2017-08-21 08:40 | Progress Note ---
Assessment and Plan Assessment and plan: Acute resp faillure due to asthma exacerbation. He is now intubated on ventilator. Pulmonology following. Asthma exacerbation. On solumedrol, levaquin, Duoneb Hyperkalemia. This is now resolved. Insulin iv, Calcium and Kayexalate given yesterday. BMP pending today. Leukocytosis improved. WBC 14.2 today. This maybe SIRS. To r/o sepsis. On empiric Levaquin and Vancomycin. Blood cultures drawn To r/o sepsis. On empiric Antibiotics Vancomycin and levaquin iv. Acute Kidney Injury due to Acute tubular necrosis. Renal Function is worsening. Creatinine 4.5 yesterday and was 1.1 on admission. Labs pending today. Continue Strict I/O. Nephrology following DVT prophylaxis with Lovenox. Full code status Discussed with sister at bedside yesterday. History Interval history: Patient with acute resp failure due to asthma exacerbation, still intubated, no fever Hospitalist Physical - Physical exam Narrative exam: Gen Appearance: Not in acute distress, morbidly obese,intubated HEENT: normocephalic, atraumatic Neck: supple, no JVD Lungs: Clear to auscultation, bilaterally, no rales, no wheeze Heart: S1 and S2 regular, no murmurs, rubs or gallop Abdomen: Soft , non tender, non distended, normal bowel sounds Extremity: No edema, no clubbing or cyanosis, Neuro : Intubated,sedated, follows commands off sedation - Constitutional Vitals: Temp Pulse Resp BP Pulse Ox 98.3 F 61 20 136/76 97 08/21/17 07:58 08/21/17 08:27 08/21/17 08:27 08/21/17 08:12 08/21/17 08:12 General appearance: Present: no acute distress Results - Labs CBC & Chem 7: 08/21/17 06:25 08/20/17 10:34 Labs: Laboratory Last Values WBC 14.2 K/mm3 (4.5-11.0) H 08/21/17 06:25 RBC 4.07 M/mm3 (3.65-5.03) 08/21/17 06:25 Hgb 11.7 gm/dl (11.8-15.2) L 08/21/17 06:25 Hct 36.9 % (35.5-45.6) 08/21/17 06:25 MCV 86 fl (84-94) 08/21/17 06:25 MCH 29 pg (28-32) 08/21/17 06:25 MCHC 33 % (32-34) 08/21/17 06:25 RDW 14.8 % (13.2-15.2) 08/21/17 06:25 Plt Count 241 K/mm3 (140-440) 08/21/17 06:25 Lymph % (Auto) 6.1 % (13.4-35.0) L 08/19/17 04:37 [place] % (Auto) 4.1 % (0.0-7.3) 08/19/17 04:37 Eos % (Auto) 0.0 % (0.0-4.3) 08/19/17 04:37 Baso % (Auto) 0.1 % (0.0-1.8) 08/19/17 04:37 Lymph # 1.1 K/mm3 (1.2-5.4) L 08/19/17 04:37 [place] # 0.7 K/mm3 (0.0-0.8) 08/19/17 04:37 Eos # 0.0 K/mm3 (0.0-0.4) 08/19/17 04:37 Baso # 0.0 K/mm3 (0.0-0.1) 08/19/17 04:37 Add Manual Diff Complete 08/21/17 06:25 Total Counted 100 08/21/17 06:25 Seg Neutrophils % Track Laying Machine Operator 08/21/17 06:25 Seg Neuts % (Manual) 62.0 % (40.0-70.0) 08/21/17 06:25 Band Neutrophils % 23.0 % 08/21/17 06:25 Lymphocytes % (Manual) 10.0 % (13.4-35.0) L 08/21/17 06:25 Reactive Lymphs % (Man) 0 % 08/21/17 06:25 Monocytes % (Manual) 5.0 % (0.0-7.3) 08/21/17 06:25 Eosinophils % (Manual) 0 % (0.0-4.3) 08/21/17 06:25 Basophils % (Manual) 0 % (0.0-1.8) 08/18/17 08:32 Metamyelocytes % 0 % 08/21/17 06:25 Myelocytes % 0 % 08/21/17 06:25 Promyelocytes % 0 % 08/21/17 06:25 Blast Cells % 0 % 08/21/17 06:25 Nucleated RBC % Not Reportable 08/21/17 06:25 Seg Neutrophils # 16.2 K/mm3 (1.8-7.7) H 08/19/17 04:37 Seg Neutrophils # Man 8.8 K/mm3 (1.8-7.7) H 08/21/17 06:25 Band Neutrophils # 3.3 K/mm3 08/21/17 06:25 Lymphocytes # (Manual) 1.4 K/mm3 (1.2-5.4) 08/21/17 06:25 Abs React Lymphs (Man) 0.0 K/mm3 08/21/17 06:25 Monocytes # (Manual) 0.7 K/mm3 (0.0-0.8) 08/21/17 06:25 Eosinophils # (Manual) 0.0 K/mm3 (0.0-0.4) 08/21/17 06:25 Basophils # (Manual) 0.0 K/mm3 (0.0-0.1) 08/21/17 06:25 Metamyelocytes # 0.0 K/mm3 08/21/17 06:25 Myelocytes # 0.0 K/mm3 08/21/17 06:25 Promyelocytes # 0.0 K/mm3 08/21/17 06:25 Blast Cells # 0.0 K/mm3 08/21/17 06:25 WBC Morphology Not Reportable 08/21/17 06:25 Hypersegmented Neuts Not Reportable 08/21/17 06:25 Hyposegmented Neuts Not Reportable 08/21/17 06:25 Hypogranular Neuts Not Reportable 08/21/17 06:25 Smudge Cells Not Reportable 08/21/17 06:25 Toxic Granulation Not Reportable 08/21/17 06:25 Toxic Vacuolation Not Reportable 08/21/17 06:25 Dohle Bodies Not Reportable 08/21/17 06:25 Pelger-Huet Anomaly Not Reportable 08/21/17 06:25 Merry Rods Not Reportable 08/21/17 06:25 Platelet Estimate Appears normal 08/21/17 06:25 Clumped Platelets Not Reportable 08/21/17 06:25 Plt Clumps, EDTA Not Reportable 08/21/17 06:25 Large Platelets Not Reportable 08/21/17 06:25 Giant Platelets Not Reportable 08/21/17 06:25 Platelet Satelliting Not Reportable 08/21/17 06:25 Plt Morphology Comment Not Reportable 08/21/17 06:25 RBC Morphology Not Reportable 08/21/17 06:25 Dimorphic RBCs Not Reportable 08/21/17 06:25 Polychromasia Not Reportable 08/21/17 06:25 Hypochromasia Not Reportable 08/21/17 06:25 Poikilocytosis Not Reportable 08/21/17 06:25 Anisocytosis Few 08/21/17 06:25 Microcytosis Not Reportable 08/21/17 06:25 Macrocytosis Not Reportable 08/21/17 06:25 Spherocytes Not Reportable 08/21/17 06:25 Pappenheimer Bodies Not Reportable 08/21/17 06:25 Sickle Cells Not Reportable 08/21/17 06:25 Target Cells Not Reportable 08/21/17 06:25 Tear Drop Cells Not Reportable 08/21/17 06:25 Ovalocytes Not Reportable 08/21/17 06:25 Helmet Cells Not Reportable 08/21/17 06:25 Irene-Bell Arthur Bodies Not Reportable 08/21/17 06:25 Howell Rings Not Reportable 08/21/17 06:25 Queenie Cells Not Reportable 08/21/17 06:25 Bite Cells Not Reportable 08/21/17 06:25 Crenated Cell Not Reportable 08/21/17 06:25 Elliptocytes Not Reportable 08/21/17 06:25 Acanthocytes (Spur) Not Reportable 08/21/17 06:25 Rouleaux Not Reportable 08/21/17 06:25 Hemoglobin C Crystals Not Reportable 08/21/17 06:25 Schistocytes Not Reportable 08/21/17 06:25 Malaria parasites Not Reportable 08/21/17 06:25 Sudhakar Bodies Not Reportable 08/21/17 06:25 Hem Pathologist Commnt No 08/21/17 06:25 D-Dimer 698.53 ng/mlDDU (0-234) H 08/19/17 15:03 POC ABG pH 7.321 (7.35-7.45) L 08/21/17 04:57 POC ABG pCO2 46.8 (35-45) H 08/21/17 04:57 POC ABG pO2 115 (80-105) H 08/21/17 04:57 POC ABG HCO3 24.2 08/21/17 04:57 POC ABG Total CO2 26 08/21/17 04:57 POC ABG O2 Sat 98 08/21/17 04:57 POC ABG Base Excess -2 08/21/17 04:57 FiO2 40 % 08/21/17 04:57 Sodium 142 mmol/L (137-145) 08/20/17 10:34 Potassium 4.8 mmol/L (3.6-5.0) D 08/20/17 10:34 Chloride 104.9 mmol/L (98-107) 08/20/17 10:34 Carbon Dioxide 23 mmol/L (22-30) 08/20/17 10:34 Anion Gap 19 mmol/L 08/20/17 10:34 BUN 52 mg/dL (9-20) H 08/20/17 10:34 Creatinine 4.5 mg/dL (0.8-1.5) H 08/20/17 10:34 Estimated GFR 17 ml/min 08/20/17 10:34 BUN/Creatinine Ratio 11.55 % 08/20/17 10:34 Glucose 118 mg/dL (75-100) H 08/20/17 10:34 POC Glucose 134 (70-105) H 08/21/17 05:55 Osmolality 319 Mosm/kg 08/20/17 04:04 Lactic Acid 1.10 mmol/L (0.7-2.0) 08/21/17 06:25 Uric Acid 9.7 mg/dL (3.5-7.6) H 08/20/17 10:34 Calcium 8.2 mg/dL (8.4-10.2) L 08/20/17 10:34 Phosphorus 5.00 mg/dL (2.5-4.5) H D 08/21/17 06:25 Magnesium 2.60 mg/dL (1.7-2.3) H 08/21/17 06:34 Total Bilirubin 0.30 mg/dL (0.1-1.2) 08/20/17 04:04 AST 30 units/L (5-40) 08/20/17 04:04 ALT 19 units/L (7-56) 08/20/17 04:04 Alkaline Phosphatase 67 units/L (35-129) 08/20/17 04:04 Lactate Dehydrogenase 250 units/L (91-180) H 08/20/17 10:34 Total Creatine Kinase 623 units/L (55-170) H 08/20/17 10:34 Troponin T < 0.010 ng/mL (0.00-0.029) 08/18/17 08:32 C-Reactive Protein 3.30 mg/dL (0.00-1.30) H 08/19/17 18:43 NT-Pro-B Natriuret Pep 18.05 pg/mL (0-450) 08/18/17 08:32 Total Protein 7.2 g/dL (6.3-8.2) 08/20/17 04:04 Albumin 4.1 g/dL (3.9-5) 08/20/17 04:04 Albumin/Globulin Ratio 1.3 % 08/20/17 04:04 Urine Color Yellow (Yellow) 08/18/17 17:26 Urine Turbidity Clear (Clear) 08/18/17 17:26 Urine pH 5.0 (5.0-7.0) 08/18/17 17:26 Ur Specific [place] 1.026 (1.003-1.030) 08/18/17 17:26 Urine Protein >500 mg/dL (Negative) 08/18/17 17:26 Urine Glucose (UA) 50 mg/dL (Negative) 08/18/17 17:26 Urine Ketones Tr mg/dL (Negative) 08/18/17 17:26 Urine Blood Sm (Negative) 08/18/17 17:26 Urine Nitrite Neg (Negative) 08/18/17 17:26 Urine Bilirubin Neg (Negative) 08/18/17 17:26 Urine Urobilinogen < 2.0 mg/dL (<2.0) 08/18/17 17:26 Ur Leukocyte Esterase Neg (Negative) 08/18/17 17:26 Urine WBC (Auto) 9.0 /HPF (0.0-6.0) H 08/18/17 17:26 Urine RBC (Auto) 5.0 /HPF (0.0-6.0) 08/18/17 17:26 U Epithel Cells (Auto) < 1.0 /HPF (0-13.0) 08/18/17 17:26 Urine Mucus Few /HPF 08/18/17 17:26 Urine Eosinophils None seen (None Seen) 08/19/17 13:40 Urine Osmolality 542 Mosm/kg 08/19/17 13:40 Urine Creatinine 436.1 mg/dL (0.1-20.0) H 08/19/17 13:40 Protein/Creatinin Ratio 0.33 08/19/17 13:40 Urine Sodium 29 mEq/L 08/19/17 13:40 Urine Total Protein 140 mg/dL (5-11.8) H 08/19/17 13:40
[2017-08-21] MEDS: PEPCID PO SCH (10:05)
--- NOTE | 2017-08-21 10:16 | Progress Note ---
Assessment and Plan (1) Acute respiratory failure with hypoxia Current Visit: Yes Status: Acute Plan to address problem: Intubated on vent support (2) severe renal failure Current Visit: Yes Status: Acute Plan to address problem: labs are pending this AM, currently oliguric, may need [employer]AM PL[employer] CONTROL ROOM OPERATOR initiation within the next 24-48 hours. will d/c IVF renal US negative for obstruction will order vasculitis work up Obtain daily weights Renally dose medications Avoid Nephrotoxic agents Monitor renal function closely (3) Hypertensive emergency Current Visit: Yes Status: Acute Plan to address problem: off Cardene drip (4) Hypophosphatemia Current Visit: Yes Status: Acute Plan to address problem: level pending (5) SIRS (systemic inflammatory response syndrome) Current Visit: Yes Status: Acute Plan to address problem: On IV Solumedrol, Levaquin, vanco Subjective Date of service: 08/21/17 Principal diagnosis: Acute Hypoxemic Respiratory Failure; GUZMAN; Morbid Obesity Interval history: patient is intubated, no family at bedside Objective - Vital Signs Vital signs: Vital Signs - 12hr 08/20/17 08/20/17 08/20/17 22:30 23:00 23:16 Temperature Pulse Rate 68 67 72 Pulse Rate [ Anterior Bilateral Throughout] Pulse Rate [ From Monitor] Respiratory 19 16 Rate Respiratory Rate [Anterior Bilateral Throughout] Blood Pressure 131/75 129/72 129/72 O2 Sat by Pulse 97 97 97 Oximetry 08/20/17 08/21/17 08/21/17 23:30 00:00 00:30 Temperature 99.6 F Pulse Rate 69 73 64 Pulse Rate [ Anterior Bilateral Throughout] Pulse Rate [ 63 From Monitor] Respiratory 20 20 21 Rate Respiratory Rate [Anterior Bilateral Throughout] Blood Pressure 128/67 132/77 121/57 O2 Sat by Pulse 97 97 96 Oximetry 08/21/17 08/21/17 08/21/17 01:00 01:30 02:00 Temperature Pulse Rate 62 59 L 60 Pulse Rate [ Anterior Bilateral Throughout] Pulse Rate [ From Monitor] Respiratory 20 20 20 Rate Respiratory Rate [Anterior Bilateral Throughout] Blood Pressure 119/61 123/64 122/68 O2 Sat by Pulse 96 96 96 Oximetry 08/21/17 08/21/17 08/21/17 02:30 02:58 03:00 Temperature Pulse Rate 63 59 L Pulse Rate [ 60 Anterior Bilateral Throughout] Pulse Rate [ From Monitor] Respiratory 20 20 Rate Respiratory 20 Rate [Anterior Bilateral Throughout] Blood Pressure 115/68 125/65 O2 Sat by Pulse 97 97 Oximetry 08/21/17 08/21/17 08/21/17 03:31 03:54 04:00 Temperature 99.0 F Pulse Rate 91 H 66 Pulse Rate [ Anterior Bilateral Throughout] Pulse Rate [ 64 From Monitor] Respiratory 12 17 Rate Respiratory Rate [Anterior Bilateral Throughout] Blood Pressure 125/65 130/64 O2 Sat by Pulse 97 97 Oximetry 08/21/17 08/21/17 08/21/17 04:30 04:42 04:52 Temperature Pulse Rate 63 66 Pulse Rate [ 60 Anterior Bilateral Throughout] Pulse Rate [ From Monitor] Respiratory 20 Rate Respiratory 20 Rate [Anterior Bilateral Throughout] Blood Pressure 133/63 O2 Sat by Pulse 97 Oximetry 08/21/17 08/21/17 08/21/17 04:56 05:00 05:30 Temperature Pulse Rate 61 63 57 L Pulse Rate [ Anterior Bilateral Throughout] Pulse Rate [ From Monitor] Respiratory 19 17 Rate Respiratory Rate [Anterior Bilateral Throughout] Blood Pressure 133/63 141/65 137/75 O2 Sat by Pulse 97 95 97 Oximetry 08/21/17 08/21/17 08/21/17 06:00 06:30 07:00 Temperature Pulse Rate 58 L 62 56 L Pulse Rate [ Anterior Bilateral Throughout] Pulse Rate [ From Monitor] Respiratory 20 15 20 Rate Respiratory Rate [Anterior Bilateral Throughout] Blood Pressure 137/72 131/70 132/70 O2 Sat by Pulse 97 97 97 Oximetry 08/21/17 08/21/17 08/21/17 07:30 07:58 08:00 Temperature 98.3 F Pulse Rate 60 61 Pulse Rate [ Anterior Bilateral Throughout] Pulse Rate [ From Monitor] Respiratory 19 20 Rate Respiratory Rate [Anterior Bilateral Throughout] Blood Pressure 135/73 135/73 O2 Sat by Pulse 97 98 Oximetry 08/21/17 08/21/17 08/21/17 08:12 08:15 08:27 Temperature Pulse Rate 57 L Pulse Rate [ 58 L 61 Anterior Bilateral Throughout] Pulse Rate [ From Monitor] Respiratory Rate Respiratory 20 20 Rate [Anterior Bilateral Throughout] Blood Pressure 136/76 O2 Sat by Pulse 97 Oximetry - General Appearance General appearance: well-developed, well-nourished, intubated EENT: ATNC, PERRL, mucous membranes dry Neck: no JVD, no carotid bruit Respiratory: Present: Clear to Ascultation. Absent: Rales, Ronchi Cardiology: regular, S1S2 Gastrointestinal: normoactive bowel sounds, no tenderness, no distended, no guarding Integumentary: no rash, warm and dry Neurologic: other (intubated) Musculoskeletal: other (1+ pitting edema in BLE) Psychiatric: other (intubated) - Lab 08/21/17 06:25 08/20/17 10:34 Most recent lab results Calcium 8.2 mg/dL (8.4-10.2) L 08/20/17 10:34 Phosphorus 5.00 mg/dL (2.5-4.5) H D 08/21/17 06:25 Magnesium 2.60 mg/dL (1.7-2.3) H 08/21/17 06:34 Urine Creatinine 436.1 mg/dL (0.1-20.0) H 08/19/17 13:40 Urine Sodium 29 mEq/L 08/19/17 13:40 Urine Total Protein 140 mg/dL (5-11.8) H 08/19/17 13:40
--- NOTE | 2017-08-21 11:20 | Progress Note ---
Assessment and Plan (1) Acute respiratory failure with hypoxia Current Visit: Yes Status: Acute Plan to address problem: - remains on MVS - continue to wean oxygen for sats >/= 94% - increased TV to 550 mls re: hypercapnia - continue daily sedation vacations and lighten sedation - continue bronchodilators and pulmonary toilet - continue aspiration precautions / Address VAP bundle daily - continue daily PSV trials as tolerated (2) Hypertensive emergency Current Visit: Yes Status: Acute Plan to address problem: - off cardene drip now - titrate oral hypertensives (3) GUZMAN (acute kidney injury) Current Visit: Yes Status: Acute Plan to address problem: - hyperkalemia corrected - improving urine output - nephrology evaluation ongoing - may need dialysis (4) Obesity, morbid Current Visit: Yes Status: Acute Plan to address problem: - weight loss counselled - outpatient sleep clinic evaluation advised (5) SIRS (systemic inflammatory response syndrome) Current Visit: Yes Status: Acute Plan to address problem: - improved - continue empiric AB's and follow cultures - continue to treat azotemia +/- dialysis - prn analgesia (6) Leucocytosis Current Visit: Yes Status: Acute Qualifiers: Leukocytosis type: L Plan to address problem: - WBC noted - suspect steroid + stress demarginalization - CRP & Lactate unremarkable (will trend) - continue empiric levaquin and follow cultures (7) Discharge planning issues Current Visit: Yes Status: Acute Plan to address problem: - he remains critically ill on life sustaining interventions including MVS and at risk for further deterioration including - care plan discussed with patient and family at bedside ...30' CCT today Subjective Date of service: 08/21/17 Principal diagnosis: Acute Hypoxemic Respiratory Failure; GUZMAN; Morbid Obesity Interval history: Seen and examined at bedside; 24 hour events reviewed; nursing and respiratory care staff consulted; no adverse overnight events reported to me; resting in bed ; did not tolerate bedside SBT; sedated; sister visiting; no emesis or overt aspiration; no gross bleeding; making urine Objective Vital Signs - 12hr 08/20/17 08/21/17 08/21/17 23:30 00:00 00:30 Temperature 99.6 F Pulse Rate 69 73 64 Pulse Rate [ Anterior Bilateral Throughout] Pulse Rate [ 63 From Monitor] Respiratory 20 20 21 Rate Respiratory Rate [Anterior Bilateral Throughout] Blood Pressure 128/67 132/77 121/57 O2 Sat by Pulse 97 97 96 Oximetry 08/21/17 08/21/17 08/21/17 01:00 01:30 02:00 Temperature Pulse Rate 62 59 L 60 Pulse Rate [ Anterior Bilateral Throughout] Pulse Rate [ From Monitor] Respiratory 20 20 20 Rate Respiratory Rate [Anterior Bilateral Throughout] Blood Pressure 119/61 123/64 122/68 O2 Sat by Pulse 96 96 96 Oximetry 08/21/17 08/21/17 08/21/17 02:30 02:58 03:00 Temperature Pulse Rate 63 59 L Pulse Rate [ 60 Anterior Bilateral Throughout] Pulse Rate [ From Monitor] Respiratory 20 20 Rate Respiratory 20 Rate [Anterior Bilateral Throughout] Blood Pressure 115/68 125/65 O2 Sat by Pulse 97 97 Oximetry 08/21/17 08/21/17 08/21/17 03:31 03:54 04:00 Temperature 99.0 F Pulse Rate 91 H 66 Pulse Rate [ Anterior Bilateral Throughout] Pulse Rate [ 64 From Monitor] Respiratory 12 17 Rate Respiratory Rate [Anterior Bilateral Throughout] Blood Pressure 125/65 130/64 O2 Sat by Pulse 97 97 Oximetry 08/21/17 08/21/17 08/21/17 04:30 04:42 04:52 Temperature Pulse Rate 63 66 Pulse Rate [ 60 Anterior Bilateral Throughout] Pulse Rate [ From Monitor] Respiratory 20 Rate Respiratory 20 Rate [Anterior Bilateral Throughout] Blood Pressure 133/63 O2 Sat by Pulse 97 Oximetry 08/21/17 08/21/17 08/21/17 04:56 05:00 05:30 Temperature Pulse Rate 61 63 57 L Pulse Rate [ Anterior Bilateral Throughout] Pulse Rate [ From Monitor] Respiratory 19 17 Rate Respiratory Rate [Anterior Bilateral Throughout] Blood Pressure 133/63 141/65 137/75 O2 Sat by Pulse 97 95 97 Oximetry 08/21/17 08/21/17 08/21/17 06:00 06:30 07:00 Temperature Pulse Rate 58 L 62 56 L Pulse Rate [ Anterior Bilateral Throughout] Pulse Rate [ From Monitor] Respiratory 20 15 20 Rate Respiratory Rate [Anterior Bilateral Throughout] Blood Pressure 137/72 131/70 132/70 O2 Sat by Pulse 97 97 97 Oximetry 08/21/17 08/21/17 08/21/17 07:30 07:58 08:00 Temperature 98.3 F Pulse Rate 60 61 Pulse Rate [ Anterior Bilateral Throughout] Pulse Rate [ From Monitor] Respiratory 19 20 Rate Respiratory Rate [Anterior Bilateral Throughout] Blood Pressure 135/73 135/73 O2 Sat by Pulse 97 98 Oximetry 08/21/17 08/21/17 08/21/17 08:12 08:15 08:27 Temperature Pulse Rate 57 L Pulse Rate [ 58 L 61 Anterior Bilateral Throughout] Pulse Rate [ From Monitor] Respiratory Rate Respiratory 20 20 Rate [Anterior Bilateral Throughout] Blood Pressure 136/76 O2 Sat by Pulse 97 Oximetry Constitutional: no acute distress, other (sedated RASS 1) Eyes: non-icteric ENT: oropharynx moist Neck: supple, no lymphadenopathy, other (large neck circumfrence; possible ANGIE) Effort: mildly labored Ascultation: Bilateral: diminished breath sounds, wheezes (expiratory) Cardiovascular: regular rate and rhythm Gastrointestinal: normoactive bowel sounds, soft, non-tender, non-distended Integumentary: normal Extremities: no cyanosis, no edema, pulses normal, no ischemia or petechiae Neurologic: normal mental status, non-focal exam, pupils equal and round, motor strength normal and Psychiatric: mood appropriate, affect normal CBC and BMP: 08/22/17 05:27 08/22/17 05:27 ABG, PT/INR, D-dimer: ABG POC ABG pH 7.321 (7.35-7.45) L 08/21/17 04:57 POC ABG pCO2 46.8 (35-45) H 08/21/17 04:57 POC ABG pO2 115 (80-105) H 08/21/17 04:57 POC ABG HCO3 24.2 08/21/17 04:57 POC ABG Total CO2 26 08/21/17 04:57 POC ABG O2 Sat 98 08/21/17 04:57 PT/INR, D-dimer D-Dimer 698.53 ng/mlDDU (0-234) H 08/19/17 15:03 Abnormal lab findings: Abnormal Labs 08/18/17 08/18/17 08/19/17 16:54 17:26 04:37 WBC 18.1 H Hgb Lymph % (Auto) 6.1 L Lymph # 1.1 L Seg Neutrophils % 89.7 H Lymphocytes % (Manual) Seg Neutrophils # 16.2 H Seg Neutrophils # Man Monocytes # (Manual) D-Dimer POC ABG pH 7.231 L POC ABG pCO2 63.3 H POC ABG pO2 Potassium Carbon Dioxide BUN Creatinine Glucose POC Glucose Uric Acid Calcium Phosphorus Magnesium Lactate Dehydrogenase Total Creatine Kinase C-Reactive Protein Albumin Urine WBC (Auto) 9.0 H Urine Creatinine Urine Total Protein 08/19/17 08/19/17 08/19/17 04:37 05:37 13:40 WBC Hgb Lymph % (Auto) Lymph # Seg Neutrophils % Lymphocytes % (Manual) Seg Neutrophils # Seg Neutrophils # Man Monocytes # (Manual) D-Dimer POC ABG pH 7.320 L POC ABG pCO2 POC ABG pO2 Potassium Carbon Dioxide BUN 22 H Creatinine 2.9 H D Glucose 124 H POC Glucose Uric Acid Calcium Phosphorus 1.00 L Magnesium Lactate Dehydrogenase Total Creatine Kinase C-Reactive Protein Albumin 3.5 L Urine WBC (Auto) Urine Creatinine 430.8 H Urine Total Protein 144 H 08/19/17 08/19/17 08/19/17 13:40 15:03 18:43 WBC Hgb Lymph % (Auto) Lymph # Seg Neutrophils % Lymphocytes % (Manual) Seg Neutrophils # Seg Neutrophils # Man Monocytes # (Manual) D-Dimer 698.53 H POC ABG pH POC ABG pCO2 POC ABG pO2 Potassium Carbon Dioxide BUN Creatinine Glucose POC Glucose Uric Acid Calcium Phosphorus Magnesium Lactate Dehydrogenase Total Creatine Kinase C-Reactive Protein 3.30 H Albumin Urine WBC (Auto) Urine Creatinine 436.1 H Urine Total Protein 140 H 08/20/17 08/20/17 08/20/17 04:04 04:04 05:18 WBC 26.5 H Hgb Lymph % (Auto) Lymph # Seg Neutrophils % Lymphocytes % (Manual) 12.0 L Seg Neutrophils # Seg Neutrophils # Man 15.9 H Monocytes # (Manual) 1.3 H D-Dimer POC ABG pH 7.263 L POC ABG pCO2 48.7 H POC ABG pO2 Potassium 6.1 H* D Carbon Dioxide 20 L BUN 44 H Creatinine 4.3 H Glucose 111 H POC Glucose Uric Acid Calcium Phosphorus 7.30 H D Magnesium Lactate Dehydrogenase Total Creatine Kinase C-Reactive Protein Albumin Urine WBC (Auto) Urine Creatinine Urine Total Protein 08/20/17 08/20/17 08/20/17 08:51 10:02 10:34 WBC Hgb Lymph % (Auto) Lymph # Seg Neutrophils % Lymphocytes % (Manual) Seg Neutrophils # Seg Neutrophils # Man Monocytes # (Manual) D-Dimer POC ABG pH 7.232 L POC ABG pCO2 54.1 H POC ABG pO2 75 L Potassium Carbon Dioxide BUN 52 H Creatinine 4.5 H Glucose 118 H POC Glucose 110 H Uric Acid Calcium 8.2 L Phosphorus Magnesium Lactate Dehydrogenase Total Creatine Kinase C-Reactive Protein Albumin Urine WBC (Auto) Urine Creatinine Urine Total Protein 08/20/17 08/20/17 08/20/17 10:34 22:12 23:49 WBC Hgb Lymph % (Auto) Lymph # Seg Neutrophils % Lymphocytes % (Manual) Seg Neutrophils # Seg Neutrophils # Man Monocytes # (Manual) D-Dimer POC ABG pH 7.314 L POC ABG pCO2 45.8 H POC ABG pO2 114 H Potassium Carbon Dioxide BUN Creatinine Glucose POC Glucose 119 H Uric Acid 9.7 H Calcium Phosphorus Magnesium Lactate Dehydrogenase 250 H Total Creatine Kinase 623 H C-Reactive Protein Albumin Urine WBC (Auto) Urine Creatinine Urine Total Protein 08/21/17 08/21/17 08/21/17 04:57 05:55 06:25 WBC 14.2 H Hgb 11.7 L Lymph % (Auto) Lymph # Seg Neutrophils % Lymphocytes % (Manual) 10.0 L Seg Neutrophils # Seg Neutrophils # Man 8.8 H Monocytes # (Manual) D-Dimer POC ABG pH 7.321 L POC ABG pCO2 46.8 H POC ABG pO2 115 H Potassium Carbon Dioxide BUN Creatinine Glucose POC Glucose 134 H Uric Acid Calcium Phosphorus Magnesium Lactate Dehydrogenase Total Creatine Kinase C-Reactive Protein Albumin Urine WBC (Auto) Urine Creatinine Urine Total Protein 08/21/17 08/21/17 06:25 06:34 WBC Hgb Lymph % (Auto) Lymph # Seg Neutrophils % Lymphocytes % (Manual) Seg Neutrophils # Seg Neutrophils # Man Monocytes # (Manual) D-Dimer POC ABG pH POC ABG pCO2 POC ABG pO2 Potassium Carbon Dioxide BUN Creatinine Glucose POC Glucose Uric Acid Calcium Phosphorus 5.00 H D Magnesium 2.60 H Lactate Dehydrogenase Total Creatine Kinase C-Reactive Protein Albumin Urine WBC (Auto) Urine Creatinine Urine Total Protein Chest x-ray: image reviewed
[2017-08-21 11:22] LABS: BUN/Creatinine Ratio 16.82; Chloride 110.3 mmol/L (98-107); Potassium 4.6 mmol/L (3.6-5.0)
[2017-08-21] MEDS: LOVENOX SUB-Q SCH (12:14)
[2017-08-21] MEDS: APRESOLINE IV PRN ×2 (18:45→21:36)
[2017-08-22] MEDS: APRESOLINE IV PRN ×3 (01:27→21:55)
[2017-08-22] MEDS: ATIVAN IV PRN ×2 (01:27→21:40)
[2017-08-22] MEDS ORDERED: LOPRESSOR PO ONE (02:25)
[2017-08-22] MEDS: fentaNYL DRIP Premix 2,000 MCG/100 ML BAG IV SCH (05:12)
[2017-08-22 05:15] LABS: ISTAT Base Excess 1; ISTAT HCO3 27.4; ISTAT PCO2 55.6 (35-45); ISTAT PH 7.301 (7.35-7.45); ISTAT PO2 91 (80-105); ISTAT SO2 96; ISTAT TCO2 29
[2017-08-22 05:51] LABS: Hematocrit 37.4 % (35.5-45.6); Hemoglobin 12.6 gm/dl (11.8-15.2); Mean Corpuscular HGB Conc 34 % (32-34); Mean Corpuscular Hemoglobin 29 pg (28-32); Mean Corpuscular Volume 86 fl (84-94); Platelet Count 257 K/mm3 (140-440); Red Blood Count 4.35 M/mm3 (3.65-5.03); Red Cell Distribution Width 15.3 % (13.2-15.2); White Blood Count 17.5 K/mm3 (4.5-11.0)
[2017-08-22 06:09] LABS: BUN/Creatinine Ratio 20.78; Calcium 7.9 mg/dL (8.4-10.2); Chloride 113.1 mmol/L (98-107); Phosphorous 5.9 mg/dL (2.5-4.5); Potassium 5.1 mmol/L (3.6-5.0)
[2017-08-22] MEDS ORDERED: KIONEX PO ONE (07:00)
--- NOTE | 2017-08-22 07:27 | Vascular Lab Report ---
LOWER EXTREMITY VENOUS DUPLEX: REASON FOR EXAM: Pain of the lower extremities. COMMENTS ON THE RIGHT: All veins visualized are freely compressible without evidence of internal echogenicity. Flow is spontaneous and phasic throughout. COMMENTS ON THE LEFT: All veins visualized are freely compressible without evidence of internal echogenicity. Flow is spontaneous and phasic throughout. IMPRESSION: No evidence of acute or chronic deep venous thrombosis in either lower extremity.
[2017-08-22 08:01] LABS: Blastocytes % (Manual) 0 %
[2017-08-22 08:02] LABS: Eosinophils % (Manual) 0 % (0.0-4.3)
[2017-08-22 08:03] LABS: Anisocytosis Few; Diff Status Complete
[2017-08-22] MEDS ORDERED: PANCREAZE DR 10,500 UNIT FEEDTUBE PRN (08:09)
[2017-08-22] MEDS ORDERED: SIMPLE SYRUP FEEDTUBE PRN ×2 (08:09)
[2017-08-22] MEDS ORDERED: SODIUM BICARBONATE FEEDTUBE PRN (08:09)
--- NOTE | 2017-08-22 08:26 | Progress Note ---
Assessment and Plan Assessment and plan: Acute resp faillure due to asthma exacerbation. He is still intubated on ventilator. Pulmonology following. on FiO2 of 40% Asthma exacerbation. On solumedrol, levaquin, Duoneb Hyperkalemia. Potassium 5.1 today. Kayexalate 15g x 1 dose ordered SIRS with fever,tachycardia, leukocytosis. Leukocytosis WBC 17.5 today. This is secondary to SIRS. To r/o sepsis. On empiric Levaquin and Vancomycin. Blood cultures no growth. Urine cultures, no growth To r/o sepsis. On empiric Antibiotics Vancomycin and levaquin iv. Acute Kidney Injury due to Acute tubular necrosis. Renal Function is now improving, Creatinine 3.8 today. Continue Strict I/O. Nephrology following. i discussed with dr. Cortez today. DVT prophylaxis with Lovenox. Full code status Discussed with aunt at bedside today. History Interval history: Patient with acute resp failure due to asthma exacerbation, still intubated, no fever Hospitalist Physical - Physical exam Narrative exam: Gen Appearance: Not in acute distress, morbidly obese,intubated HEENT: normocephalic, atraumatic Neck: supple, no JVD Lungs: Clear to auscultation, bilaterally, no rales, no wheeze Heart: S1 and S2 regular, no murmurs, rubs or gallop Abdomen: Soft , non tender, non distended, normal bowel sounds Extremity: No edema, no clubbing or cyanosis, Neuro : Intubated,sedated, follows commands off sedation - Constitutional Vitals: Temp Pulse Resp BP Pulse Ox 99.3 F 59 L 13 126/68 96 08/22/17 04:00 08/22/17 08:00 08/22/17 07:30 08/22/17 08:00 08/22/17 08:00 General appearance: Present: no acute distress Results - Labs CBC & Chem 7: 08/22/17 05:27 08/22/17 05:27 Labs: Laboratory Last Values WBC 17.5 K/mm3 (4.5-11.0) H 08/22/17 05:27 RBC 4.35 M/mm3 (3.65-5.03) 08/22/17 05:27 Hgb 12.6 gm/dl (11.8-15.2) 08/22/17 05:27 Hct 37.4 % (35.5-45.6) 08/22/17 05:27 MCV 86 fl (84-94) 08/22/17 05:27 MCH 29 pg (28-32) 08/22/17 05:27 MCHC 34 % (32-34) 08/22/17 05:27 RDW 15.3 % (13.2-15.2) H 08/22/17 05:27 Plt Count 257 K/mm3 (140-440) 08/22/17 05:27 Lymph % (Auto) 6.1 % (13.4-35.0) L 08/19/17 04:37 Todd % (Auto) 4.1 % (0.0-7.3) 08/19/17 04:37 Eos % (Auto) 0.0 % (0.0-4.3) 08/19/17 04:37 Baso % (Auto) 0.1 % (0.0-1.8) 08/19/17 04:37 Lymph # 1.1 K/mm3 (1.2-5.4) L 08/19/17 04:37 Todd # 0.7 K/mm3 (0.0-0.8) 08/19/17 04:37 Eos # 0.0 K/mm3 (0.0-0.4) 08/19/17 04:37 Baso # 0.0 K/mm3 (0.0-0.1) 08/19/17 04:37 Add Manual Diff Complete 08/22/17 05:27 Total Counted 100 08/22/17 05:27 Seg Neutrophils % Electron Gun Inspector 08/22/17 05:27 Seg Neuts % (Manual) 71.0 % (40.0-70.0) H 08/22/17 05:27 Band Neutrophils % 14.0 % 08/22/17 05:27 Lymphocytes % (Manual) 11.0 % (13.4-35.0) L 08/22/17 05:27 Reactive Lymphs % (Man) 0 % 08/22/17 05:27 Monocytes % (Manual) 4.0 % (0.0-7.3) 08/22/17 05:27 Eosinophils % (Manual) 0 % (0.0-4.3) 08/22/17 05:27 Basophils % (Manual) 0 % (0.0-1.8) 08/18/17 08:32 Metamyelocytes % 0 % 08/22/17 05:27 Myelocytes % 0 % 08/22/17 05:27 Promyelocytes % 0 % 08/22/17 05:27 Blast Cells % 0 % 08/22/17 05:27 Nucleated RBC % Not Reportable 08/22/17 05:27 Seg Neutrophils # 16.2 K/mm3 (1.8-7.7) H 08/19/17 04:37 Seg Neutrophils # Man 12.4 K/mm3 (1.8-7.7) H 08/22/17 05:27 Band Neutrophils # 2.5 K/mm3 08/22/17 05:27 Lymphocytes # (Manual) 1.9 K/mm3 (1.2-5.4) 08/22/17 05:27 Abs React Lymphs (Man) 0.0 K/mm3 08/22/17 05:27 Monocytes # (Manual) 0.7 K/mm3 (0.0-0.8) 08/22/17 05:27 Eosinophils # (Manual) 0.0 K/mm3 (0.0-0.4) 08/22/17 05:27 Basophils # (Manual) 0.0 K/mm3 (0.0-0.1) 08/22/17 05:27 Metamyelocytes # 0.0 K/mm3 08/22/17 05:27 Myelocytes # 0.0 K/mm3 08/22/17 05:27 Promyelocytes # 0.0 K/mm3 08/22/17 05:27 Blast Cells # 0.0 K/mm3 08/22/17 05:27 WBC Morphology Not Reportable 08/22/17 05:27 Hypersegmented Neuts Not Reportable 08/22/17 05:27 Hyposegmented Neuts Not Reportable 08/22/17 05:27 Hypogranular Neuts Not Reportable 08/22/17 05:27 Smudge Cells Not Reportable 08/22/17 05:27 Toxic Granulation Not Reportable 08/22/17 05:27 Toxic Vacuolation Not Reportable 08/22/17 05:27 Dohle Bodies Not Reportable 08/22/17 05:27 Pelger-Huet Anomaly Not Reportable 08/22/17 05:27 Merry Rods Not Reportable 08/22/17 05:27 Platelet Estimate Appears normal 08/22/17 05:27 Clumped Platelets Not Reportable 08/22/17 05:27 Plt Clumps, EDTA Not Reportable 08/22/17 05:27 Large Platelets Not Reportable 08/22/17 05:27 Giant Platelets Not Reportable 08/22/17 05:27 Platelet Satelliting Not Reportable 08/22/17 05:27 Plt Morphology Comment Not Reportable 08/22/17 05:27 RBC Morphology Not Reportable 08/22/17 05:27 Dimorphic RBCs Not Reportable 08/22/17 05:27 Polychromasia Not Reportable 08/22/17 05:27 Hypochromasia Not Reportable 08/22/17 05:27 Poikilocytosis Not Reportable 08/22/17 05:27 Anisocytosis Few 08/22/17 05:27 Microcytosis Not Reportable 08/22/17 05:27 Macrocytosis Not Reportable 08/22/17 05:27 Spherocytes Not Reportable 08/22/17 05:27 Pappenheimer Bodies Not Reportable 08/22/17 05:27 Sickle Cells Not Reportable 08/22/17 05:27 Target Cells Not Reportable 08/22/17 05:27 Tear Drop Cells Not Reportable 08/22/17 05:27 Ovalocytes Not Reportable 08/22/17 05:27 Helmet Cells Not Reportable 08/22/17 05:27 [place] Bodies Not Reportable 08/22/17 05:27 [place] Rings Not Reportable 08/22/17 05:27 [place] Cells Not Reportable 08/22/17 05:27 Bite Cells Not Reportable 08/22/17 05:27 Crenated Cell Not Reportable 08/22/17 05:27 Elliptocytes Not Reportable 08/22/17 05:27 Acanthocytes (Spur) Not Reportable 08/22/17 05:27 Rouleaux Not Reportable 08/22/17 05:27 Hemoglobin C Crystals Not Reportable 08/22/17 05:27 Schistocytes Not Reportable 08/22/17 05:27 Malaria parasites Not Reportable 08/22/17 05:27 Sudhakar Bodies Not Reportable 08/22/17 05:27 Hem Pathologist Commnt No 08/22/17 05:27 D-Dimer 698.53 ng/mlDDU (0-234) H 08/19/17 15:03 POC ABG pH 7.301 (7.35-7.45) L 08/22/17 04:54 POC ABG pCO2 55.6 (35-45) H 08/22/17 04:54 POC ABG pO2 91 (80-105) 08/22/17 04:54 POC ABG HCO3 27.4 08/22/17 04:54 POC ABG Total CO2 29 08/22/17 04:54 POC ABG O2 Sat 96 08/22/17 04:54 POC ABG Base Excess 1 08/22/17 04:54 FiO2 40 % 08/22/17 04:54 Sodium 149 mmol/L (137-145) H 08/22/17 05:27 Potassium 5.1 mmol/L (3.6-5.0) H 08/22/17 05:27 Chloride 113.1 mmol/L (98-107) H 08/22/17 05:27 Carbon Dioxide 23 mmol/L (22-30) 08/22/17 05:27 Anion Gap 18 mmol/L 08/22/17 05:27 BUN 79 mg/dL (9-20) H 08/22/17 05:27 Creatinine 3.8 mg/dL (0.8-1.5) H 08/22/17 05:27 Estimated GFR 21 ml/min 08/22/17 05:27 BUN/Creatinine Ratio 20.78 % 08/22/17 05:27 Glucose 124 mg/dL (75-100) H 08/22/17 05:27 POC Glucose 127 (70-105) H 08/22/17 05:10 Osmolality 319 Mosm/kg 08/20/17 04:04 Lactic Acid 1.10 mmol/L (0.7-2.0) 08/21/17 06:25 Uric Acid 9.7 mg/dL (3.5-7.6) H 08/20/17 10:34 Calcium 7.9 mg/dL (8.4-10.2) L 08/22/17 05:27 Phosphorus 5.90 mg/dL (2.5-4.5) H 08/22/17 05:27 Magnesium 2.60 mg/dL (1.7-2.3) H 08/21/17 06:34 Total Bilirubin 0.30 mg/dL (0.1-1.2) 08/20/17 04:04 AST 30 units/L (5-40) 08/20/17 04:04 ALT 19 units/L (7-56) 08/20/17 04:04 Alkaline Phosphatase 67 units/L (35-129) 08/20/17 04:04 Lactate Dehydrogenase 250 units/L (91-180) H 08/20/17 10:34 Total Creatine Kinase 623 units/L (55-170) H 08/20/17 10:34 Troponin T < 0.010 ng/mL (0.00-0.029) 08/18/17 08:32 C-Reactive Protein 3.30 mg/dL (0.00-1.30) H 08/19/17 18:43 NT-Pro-B Natriuret Pep 18.05 pg/mL (0-450) 08/18/17 08:32 Total Protein 7.2 g/dL (6.3-8.2) 08/20/17 04:04 Albumin 4.1 g/dL (3.9-5) 08/20/17 04:04 Albumin/Globulin Ratio 1.3 % 08/20/17 04:04 Urine Color Yellow (Yellow) 08/18/17 17:26 Urine Turbidity Clear (Clear) 08/18/17 17:26 Urine pH 5.0 (5.0-7.0) 08/18/17 17:26 Ur Specific [place] 1.026 (1.003-1.030) 08/18/17 17:26 Urine Protein >500 mg/dL (Negative) 08/18/17 17:26 Urine Glucose (UA) 50 mg/dL (Negative) 08/18/17 17:26 Urine Ketones Tr mg/dL (Negative) 08/18/17 17:26 Urine Blood Sm (Negative) 08/18/17 17:26 Urine Nitrite Neg (Negative) 08/18/17 17:26 Urine Bilirubin Neg (Negative) 08/18/17 17:26 Urine Urobilinogen < 2.0 mg/dL (<2.0) 08/18/17 17:26 Ur Leukocyte Esterase Neg (Negative) 08/18/17 17:26 Urine WBC (Auto) 9.0 /HPF (0.0-6.0) H 08/18/17 17:26 Urine RBC (Auto) 5.0 /HPF (0.0-6.0) 08/18/17 17:26 U Epithel Cells (Auto) < 1.0 /HPF (0-13.0) 08/18/17 17:26 Urine Mucus Few /HPF 08/18/17 17:26 Urine Eosinophils None seen (None Seen) 08/19/17 13:40 Urine Osmolality 542 Mosm/kg 08/19/17 13:40 Urine Creatinine 436.1 mg/dL (0.1-20.0) H 08/19/17 13:40 Protein/Creatinin Ratio 0.33 08/19/17 13:40 Urine Sodium 29 mEq/L 08/19/17 13:40 Urine Total Protein 140 mg/dL (5-11.8) H 08/19/17 13:40 Hep Bs Antigen Non-reactive (Negative) 08/21/17 10:29 Hepatitis C Antibody Non-reactive (NonReactive) 08/21/17 10:29
[2017-08-22] MEDS: BROVANA NEBU IH SCH ×2 (08:29→20:36)
[2017-08-22] MEDS: DUONEB *Not for PRN Use IH SCH ×4 (08:29→20:36)
[2017-08-22] MEDS: LOVENOX SUB-Q SCH (10:07)
[2017-08-22] MEDS: PEPCID PO SCH (10:07)
[2017-08-22] MEDS: LEVAQUIN 750MG/150ML 750 MG/150 ML BAG IV SCH (10:08)
--- NOTE | 2017-08-22 11:15 | Progress Note ---
Assessment and Plan (1) Acute respiratory failure with hypoxia Current Visit: Yes Status: Acute Plan to address problem: - remains on MVS - continue to wean oxygen for sats >/= 94% - increased TV to 550 mls re: hypercapnia - continue daily sedation vacations and lighten sedation - daily PT/OT/ROM exercises - continue bronchodilators and pulmonary toilet - continue aspiration precautions / Address VAP bundle daily - ABG after 2-3 hours on PSV today - (2) Hypertensive emergency Current Visit: Yes Status: Acute Plan to address problem: - off cardene drip now - continue to titrate oral hypertensives (3) GUZMAN (acute kidney injury) Current Visit: Yes Status: Acute Plan to address problem: - hyperkalemia corrected - improving urine output - nephrology evaluation ongoing - no indication for HD/UF at this point (4) Obesity, morbid Current Visit: Yes Status: Acute Plan to address problem: - weight loss counselled - outpatient sleep clinic evaluation advised (5) SIRS (systemic inflammatory response syndrome) Current Visit: Yes Status: Acute Plan to address problem: - improved - continue empiric AB's and follow cultures - continue to treat azotemia - prn analgesia (6) Leucocytosis Current Visit: Yes Status: Acute Qualifiers: Leukocytosis type: L Plan to address problem: - WBC noted - suspect steroid + stress demarginalization - CRP & Lactate unremarkable (will trend) - continue empiric levaquin and follow cultures (7) Discharge planning issues Current Visit: Yes Status: Acute Plan to address problem: - he remains critically ill on life sustaining interventions including MVS and at risk for further deterioration including - care plan discussed with patient and mother at bedside ...30' CCT today Subjective Date of service: 08/22/17 Principal diagnosis: Acute Hypoxemic Respiratory Failure; GUZMAN; Morbid Obesity Interval history: Seen and examined at bedside; 24 hour events reviewed; nursing and respiratory care staff consulted; no adverse overnight events reported to me; mother visisting; tolerating PSV better today; denies acute chest pains; no emesis or overt aspiration and still wheezing Objective Vital Signs - 12hr 08/21/17 08/21/17 08/21/17 23:26 23:30 23:51 Temperature Pulse Rate 132 H 131 H 132 H Pulse Rate [ Anterior Bilateral Throughout] Pulse Rate [ From Monitor] Respiratory 14 12 14 Rate Respiratory Rate [Anterior Bilateral Throughout] Blood Pressure 141/73 177/96 171/101 O2 Sat by Pulse 93 93 92 Oximetry 08/22/17 08/22/17 08/22/17 00:00 00:01 00:30 Temperature 98.7 F Pulse Rate 129 H 122 H Pulse Rate [ Anterior Bilateral Throughout] Pulse Rate [ 135 H From Monitor] Respiratory 12 13 Rate Respiratory Rate [Anterior Bilateral Throughout] Blood Pressure 185/86 169/86 O2 Sat by Pulse 94 93 Oximetry 08/22/17 08/22/17 08/22/17 01:00 01:27 01:30 Temperature Pulse Rate 121 H 118 H 120 H Pulse Rate [ Anterior Bilateral Throughout] Pulse Rate [ From Monitor] Respiratory 14 14 Rate Respiratory Rate [Anterior Bilateral Throughout] Blood Pressure 165/87 165/87 166/86 O2 Sat by Pulse 94 93 Oximetry 08/22/17 08/22/17 08/22/17 02:00 02:30 03:01 Temperature Pulse Rate 130 H 128 H 139 H Pulse Rate [ Anterior Bilateral Throughout] Pulse Rate [ From Monitor] Respiratory 13 14 17 Rate Respiratory Rate [Anterior Bilateral Throughout] Blood Pressure 166/86 151/69 151/69 O2 Sat by Pulse 92 92 94 Oximetry 08/22/17 08/22/17 08/22/17 03:30 04:00 04:22 Temperature 99.3 F Pulse Rate 94 H 82 77 Pulse Rate [ Anterior Bilateral Throughout] Pulse Rate [ 72 From Monitor] Respiratory 14 14 Rate Respiratory Rate [Anterior Bilateral Throughout] Blood Pressure 148/87 148/87 137/78 O2 Sat by Pulse 94 95 95 Oximetry 08/22/17 08/22/17 08/22/17 04:30 05:00 05:30 Temperature Pulse Rate 77 73 73 Pulse Rate [ Anterior Bilateral Throughout] Pulse Rate [ From Monitor] Respiratory 13 14 14 Rate Respiratory Rate [Anterior Bilateral Throughout] Blood Pressure 143/74 143/74 128/72 O2 Sat by Pulse 95 95 95 Oximetry 08/22/17 08/22/17 08/22/17 06:00 06:30 07:00 Temperature Pulse Rate 69 69 66 Pulse Rate [ Anterior Bilateral Throughout] Pulse Rate [ From Monitor] Respiratory 12 14 14 Rate Respiratory Rate [Anterior Bilateral Throughout] Blood Pressure 129/68 127/71 127/71 O2 Sat by Pulse 95 94 95 Oximetry 08/22/17 08/22/17 08/22/17 07:30 08:00 08:30 Temperature 98.7 F Pulse Rate 64 64 59 L Pulse Rate [ 59 L Anterior Bilateral Throughout] Pulse Rate [ 61 From Monitor] Respiratory 13 14 20 Rate Respiratory 20 Rate [Anterior Bilateral Throughout] Blood Pressure 125/74 126/68 128/69 O2 Sat by Pulse 96 95 96 Oximetry 08/22/17 08/22/17 08/22/17 09:00 09:30 10:00 Temperature Pulse Rate 62 64 67 Pulse Rate [ Anterior Bilateral Throughout] Pulse Rate [ From Monitor] Respiratory 20 15 17 Rate Respiratory Rate [Anterior Bilateral Throughout] Blood Pressure 132/74 132/69 131/69 O2 Sat by Pulse 96 96 95 Oximetry Constitutional: no acute distress, lethargic Eyes: non-icteric ENT: oropharynx moist Neck: supple, no lymphadenopathy, other (large neck circumfrence; possible ANGIE) Effort: mildly labored Ascultation: Bilateral: diminished breath sounds, rales (expiratory) Cardiovascular: regular rate and rhythm Gastrointestinal: normoactive bowel sounds, soft, non-tender, non-distended Integumentary: normal Extremities: no cyanosis, no edema, pulses normal, no ischemia or petechiae Neurologic: normal mental status, non-focal exam, pupils equal and round, motor strength normal and Psychiatric: mood appropriate, affect normal CBC and BMP: 08/22/17 05:27 08/22/17 05:27 ABG, PT/INR, D-dimer: ABG POC ABG pH 7.301 (7.35-7.45) L 08/22/17 04:54 POC ABG pCO2 55.6 (35-45) H 08/22/17 04:54 POC ABG pO2 91 (80-105) 08/22/17 04:54 POC ABG HCO3 27.4 08/22/17 04:54 POC ABG Total CO2 29 08/22/17 04:54 POC ABG O2 Sat 96 08/22/17 04:54 PT/INR, D-dimer D-Dimer 698.53 ng/mlDDU (0-234) H 08/19/17 15:03 Abnormal lab findings: Abnormal Labs 08/18/17 08/18/17 08/19/17 16:54 17:26 04:37 WBC 18.1 H Hgb RDW Lymph % (Auto) 6.1 L Lymph # 1.1 L Seg Neutrophils % 89.7 H Seg Neuts % (Manual) Lymphocytes % (Manual) Seg Neutrophils # 16.2 H Seg Neutrophils # Man Monocytes # (Manual) D-Dimer POC ABG pH 7.231 L POC ABG pCO2 63.3 H POC ABG pO2 Sodium Potassium Chloride Carbon Dioxide BUN Creatinine Glucose POC Glucose Uric Acid Calcium Phosphorus Magnesium Lactate Dehydrogenase Total Creatine Kinase C-Reactive Protein Albumin Urine WBC (Auto) 9.0 H Urine Creatinine Urine Total Protein 08/19/17 08/19/17 08/19/17 04:37 05:37 13:40 WBC Hgb RDW Lymph % (Auto) Lymph # Seg Neutrophils % Seg Neuts % (Manual) Lymphocytes % (Manual) Seg Neutrophils # Seg Neutrophils # Man Monocytes # (Manual) D-Dimer POC ABG pH 7.320 L POC ABG pCO2 POC ABG pO2 Sodium Potassium Chloride Carbon Dioxide BUN 22 H Creatinine 2.9 H D Glucose 124 H POC Glucose Uric Acid Calcium Phosphorus 1.00 L Magnesium Lactate Dehydrogenase Total Creatine Kinase C-Reactive Protein Albumin 3.5 L Urine WBC (Auto) Urine Creatinine 430.8 H Urine Total Protein 144 H 08/19/17 08/19/17 08/19/17 13:40 15:03 18:43 WBC Hgb RDW Lymph % (Auto) Lymph # Seg Neutrophils % Seg Neuts % (Manual) Lymphocytes % (Manual) Seg Neutrophils # Seg Neutrophils # Man Monocytes # (Manual) D-Dimer 698.53 H POC ABG pH POC ABG pCO2 POC ABG pO2 Sodium Potassium Chloride Carbon Dioxide BUN Creatinine Glucose POC Glucose Uric Acid Calcium Phosphorus Magnesium Lactate Dehydrogenase Total Creatine Kinase C-Reactive Protein 3.30 H Albumin Urine WBC (Auto) Urine Creatinine 436.1 H Urine Total Protein 140 H 08/20/17 08/20/17 08/20/17 04:04 04:04 05:18 WBC 26.5 H Hgb RDW Lymph % (Auto) Lymph # Seg Neutrophils % Seg Neuts % (Manual) Lymphocytes % (Manual) 12.0 L Seg Neutrophils # Seg Neutrophils # Man 15.9 H Monocytes # (Manual) 1.3 H D-Dimer POC ABG pH 7.263 L POC ABG pCO2 48.7 H POC ABG pO2 Sodium Potassium 6.1 H* D Chloride Carbon Dioxide 20 L BUN 44 H Creatinine 4.3 H Glucose 111 H POC Glucose Uric Acid Calcium Phosphorus 7.30 H D Magnesium Lactate Dehydrogenase Total Creatine Kinase C-Reactive Protein Albumin Urine WBC (Auto) Urine Creatinine Urine Total Protein 08/20/17 08/20/17 08/20/17 08:51 10:02 10:34 WBC Hgb RDW Lymph % (Auto) Lymph # Seg Neutrophils % Seg Neuts % (Manual) Lymphocytes % (Manual) Seg Neutrophils # Seg Neutrophils # Man Monocytes # (Manual) D-Dimer POC ABG pH 7.232 L POC ABG pCO2 54.1 H POC ABG pO2 75 L Sodium Potassium Chloride Carbon Dioxide BUN 52 H Creatinine 4.5 H Glucose 118 H POC Glucose 110 H Uric Acid Calcium 8.2 L Phosphorus Magnesium Lactate Dehydrogenase Total Creatine Kinase C-Reactive Protein Albumin Urine WBC (Auto) Urine Creatinine Urine Total Protein 08/20/17 08/20/17 08/20/17 10:34 22:12 23:49 WBC Hgb RDW Lymph % (Auto) Lymph # Seg Neutrophils % Seg Neuts % (Manual) Lymphocytes % (Manual) Seg Neutrophils # Seg Neutrophils # Man Monocytes # (Manual) D-Dimer POC ABG pH 7.314 L POC ABG pCO2 45.8 H POC ABG pO2 114 H Sodium Potassium Chloride Carbon Dioxide BUN Creatinine Glucose POC Glucose 119 H Uric Acid 9.7 H Calcium Phosphorus Magnesium Lactate Dehydrogenase 250 H Total Creatine Kinase 623 H C-Reactive Protein Albumin Urine WBC (Auto) Urine Creatinine Urine Total Protein 08/21/17 08/21/17 08/21/17 04:57 05:55 06:25 WBC 14.2 H Hgb 11.7 L RDW Lymph % (Auto) Lymph # Seg Neutrophils % Seg Neuts % (Manual) Lymphocytes % (Manual) 10.0 L Seg Neutrophils # Seg Neutrophils # Man 8.8 H Monocytes # (Manual) D-Dimer POC ABG pH 7.321 L POC ABG pCO2 46.8 H POC ABG pO2 115 H Sodium Potassium Chloride Carbon Dioxide BUN Creatinine Glucose POC Glucose 134 H Uric Acid Calcium Phosphorus Magnesium Lactate Dehydrogenase Total Creatine Kinase C-Reactive Protein Albumin Urine WBC (Auto) Urine Creatinine Urine Total Protein 08/21/17 08/21/17 08/21/17 06:25 06:34 10:29 WBC Hgb RDW Lymph % (Auto) Lymph # Seg Neutrophils % Seg Neuts % (Manual) Lymphocytes % (Manual) Seg Neutrophils # Seg Neutrophils # Man Monocytes # (Manual) D-Dimer POC ABG pH POC ABG pCO2 POC ABG pO2 Sodium 147 H Potassium Chloride 110.3 H Carbon Dioxide BUN 69 H Creatinine 4.1 H Glucose 115 H POC Glucose Uric Acid Calcium 8.0 L Phosphorus 5.00 H D Magnesium 2.60 H Lactate Dehydrogenase Total Creatine Kinase C-Reactive Protein Albumin Urine WBC (Auto) Urine Creatinine Urine Total Protein 08/21/17 08/21/17 08/22/17 11:41 17:03 04:54 WBC Hgb RDW Lymph % (Auto) Lymph # Seg Neutrophils % Seg Neuts % (Manual) Lymphocytes % (Manual) Seg Neutrophils # Seg Neutrophils # Man Monocytes # (Manual) D-Dimer POC ABG pH 7.301 L POC ABG pCO2 55.6 H POC ABG pO2 Sodium Potassium Chloride Carbon Dioxide BUN Creatinine Glucose POC Glucose 128 H 115 H Uric Acid Calcium Phosphorus Magnesium Lactate Dehydrogenase Total Creatine Kinase C-Reactive Protein Albumin Urine WBC (Auto) Urine Creatinine Urine Total Protein 08/22/17 08/22/17 08/22/17 05:10 05:27 05:27 WBC 17.5 H Hgb RDW 15.3 H Lymph % (Auto) Lymph # Seg Neutrophils % Seg Neuts % (Manual) 71.0 H Lymphocytes % (Manual) 11.0 L Seg Neutrophils # Seg Neutrophils # Man 12.4 H Monocytes # (Manual) D-Dimer POC ABG pH POC ABG pCO2 POC ABG pO2 Sodium 149 H Potassium 5.1 H Chloride 113.1 H Carbon Dioxide BUN 79 H Creatinine 3.8 H Glucose 124 H POC Glucose 127 H Uric Acid Calcium 7.9 L Phosphorus 5.90 H Magnesium Lactate Dehydrogenase Total Creatine Kinase C-Reactive Protein Albumin Urine WBC (Auto) Urine Creatinine Urine Total Protein Chest x-ray: pending
--- NOTE | 2017-08-22 12:18 | Progress Note ---
Assessment and Plan (1) Acute respiratory failure with hypoxia Current Visit: Yes Status: Acute Plan to address problem: Intubated on vent support (2) severe renal failure Current Visit: Yes Status: Acute Plan to address problem: mild improvement in Cr and UOP no indication for [employer]TER lasix 40 mg IV x1 for hyperkalemia will increase free water flushes to 200 cc Q4H to correct hypernatremia will add renvela for hyperphos will order vasculitis work up Obtain daily weights Renally dose medications Avoid Nephrotoxic agents Monitor renal function closely (3) Hypertensive emergency Current Visit: Yes Status: Acute Plan to address problem: off Cardene drip (4) Hypophosphatemia Current Visit: Yes Status: Acute Plan to address problem: renvela as above (5) SIRS (systemic inflammatory response syndrome) Current Visit: Yes Status: Acute Plan to address problem: On IV Solumedrol, Levaquin Subjective Date of service: 08/22/17 Principal diagnosis: Acute Hypoxemic Respiratory Failure; GUZMAN; Morbid Obesity Interval history: patient is intubated and sedated, family at bedside, all questions answered Objective - Vital Signs Vital signs: Vital Signs - 12hr 08/22/17 08/22/17 08/22/17 00:30 01:00 01:27 Temperature Pulse Rate 122 H 121 H 118 H Pulse Rate [ Anterior Bilateral Throughout] Pulse Rate [ From Monitor] Respiratory 13 14 Rate Respiratory Rate [Anterior Bilateral Throughout] Blood Pressure 169/86 165/87 165/87 O2 Sat by Pulse 93 94 Oximetry 08/22/17 08/22/17 08/22/17 01:30 02:00 02:30 Temperature Pulse Rate 120 H 130 H 128 H Pulse Rate [ Anterior Bilateral Throughout] Pulse Rate [ From Monitor] Respiratory 14 13 14 Rate Respiratory Rate [Anterior Bilateral Throughout] Blood Pressure 166/86 166/86 151/69 O2 Sat by Pulse 93 92 92 Oximetry 08/22/17 08/22/17 08/22/17 03:01 03:30 04:00 Temperature 99.3 F Pulse Rate 139 H 94 H 82 Pulse Rate [ Anterior Bilateral Throughout] Pulse Rate [ 72 From Monitor] Respiratory 17 14 14 Rate Respiratory Rate [Anterior Bilateral Throughout] Blood Pressure 151/69 148/87 148/87 O2 Sat by Pulse 94 94 95 Oximetry 08/22/17 08/22/17 08/22/17 04:22 04:30 05:00 Temperature Pulse Rate 77 77 73 Pulse Rate [ Anterior Bilateral Throughout] Pulse Rate [ From Monitor] Respiratory 13 14 Rate Respiratory Rate [Anterior Bilateral Throughout] Blood Pressure 137/78 143/74 143/74 O2 Sat by Pulse 95 95 95 Oximetry 08/22/17 08/22/17 08/22/17 05:30 06:00 06:30 Temperature Pulse Rate 73 69 69 Pulse Rate [ Anterior Bilateral Throughout] Pulse Rate [ From Monitor] Respiratory 14 12 14 Rate Respiratory Rate [Anterior Bilateral Throughout] Blood Pressure 128/72 129/68 127/71 O2 Sat by Pulse 95 95 94 Oximetry 08/22/17 08/22/17 08/22/17 07:00 07:30 08:00 Temperature 98.7 F Pulse Rate 66 64 64 Pulse Rate [ Anterior Bilateral Throughout] Pulse Rate [ 61 From Monitor] Respiratory 14 13 14 Rate Respiratory Rate [Anterior Bilateral Throughout] Blood Pressure 127/71 125/74 126/68 O2 Sat by Pulse 95 96 95 Oximetry 08/22/17 08/22/17 08/22/17 08:30 09:00 09:30 Temperature Pulse Rate 59 L 62 64 Pulse Rate [ 59 L Anterior Bilateral Throughout] Pulse Rate [ From Monitor] Respiratory 20 20 15 Rate Respiratory 20 Rate [Anterior Bilateral Throughout] Blood Pressure 128/69 132/74 132/69 O2 Sat by Pulse 96 96 96 Oximetry 08/22/17 08/22/17 10:00 12:00 Temperature Pulse Rate 67 100 H Pulse Rate [ Anterior Bilateral Throughout] Pulse Rate [ From Monitor] Respiratory 17 19 Rate Respiratory Rate [Anterior Bilateral Throughout] Blood Pressure 131/69 O2 Sat by Pulse 95 94 Oximetry - General Appearance General appearance: sedated on ventilator, intubated EENT: ATNC, PERRL, mucous membranes moist Neck: no JVD, no carotid bruit Respiratory: Present: Clear to Ascultation Cardiology: regular, S1S2 Gastrointestinal: normoactive bowel sounds, no tenderness, no masses, obese Integumentary: no rash, warm and dry Neurologic: other (sedated) Musculoskeletal: other (trace pitting edema in BLE) Psychiatric: other (sedated and intubated) - Lab 08/22/17 05:27 08/22/17 05:27 Most recent lab results Calcium 7.9 mg/dL (8.4-10.2) L 08/22/17 05:27 Phosphorus 5.90 mg/dL (2.5-4.5) H 08/22/17 05:27 Magnesium 2.60 mg/dL (1.7-2.3) H 08/21/17 06:34 Urine Creatinine 436.1 mg/dL (0.1-20.0) H 08/19/17 13:40 Urine Sodium 29 mEq/L 08/19/17 13:40 Urine Total Protein 140 mg/dL (5-11.8) H 08/19/17 13:40
[2017-08-22] MEDS ORDERED: LASIX IV ONE (13:00)
--- NOTE | 2017-08-22 14:36 | XRay Report ---
PORTABLE CHEST INDICATION: Congestion. COMPARISON: 08/20/2017 FINDINGS: Portable, frontal chest radiograph demonstrates increased left basilar opacity representing pleural fluid/atelectasis/consolidation with left hemidiaphragm now obscured. Clear remainder lungs. Stable cardiomediastinal silhouette/possible slight cardiomegaly. Stable endotracheal and esophagogastric tubes, EKG leads and osseous structures. CONCLUSION: Worse left lower lobe opacity, as described. Otherwise stable. Thank you for the opportunity to participate in this patient's care.
[2017-08-22] MEDS: RENVELA PO SCH (16:24)
[2017-08-22 17:46] LABS: ISTAT Base Excess -1; ISTAT HCO3 25.1; ISTAT PCO2 51.3 (35-45); ISTAT PH 7.298 (7.35-7.45); ISTAT PO2 94 (80-105); ISTAT SO2 96; ISTAT TCO2 27
[2017-08-23] MEDS: ATIVAN IV PRN ×2 (01:23→09:43)
[2017-08-23] MEDS: APRESOLINE IV PRN (01:27)
[2017-08-23] MEDS: DUONEB *Not for PRN Use IH SCH ×4 (01:52→19:52)
[2017-08-23 05:24] LABS: Hematocrit 41.9 % (35.5-45.6); Hemoglobin 13.5 gm/dl (11.8-15.2); Mean Corpuscular HGB Conc 32 % (32-34); Mean Corpuscular Hemoglobin 28 pg (28-32); Mean Corpuscular Volume 86 fl (84-94); Platelet Count 296 K/mm3 (140-440); Red Blood Count 4.85 M/mm3 (3.65-5.03); Red Cell Distribution Width 15.1 % (13.2-15.2); White Blood Count 16.8 K/mm3 (4.5-11.0)
[2017-08-23 05:43] LABS: BUN/Creatinine Ratio 23.61; Calcium 8.4 mg/dL (8.4-10.2); Chloride 110.9 mmol/L (98-107); Phosphorous 3.5 mg/dL (2.5-4.5); Potassium 4.2 mmol/L (3.6-5.0)
[2017-08-23 06:25] LABS: Basophils % (Manual) 0 % (0.0-1.8); Blastocytes % (Manual) 0 %; Eosinophils % (Manual) 0 % (0.0-4.3)
[2017-08-23 06:26] LABS: Diff Status Complete; Platelet Estimate Consistent w Auto
[2017-08-23] MEDS: RENVELA PO SCH ×3 (07:07→22:25)
[2017-08-23] MEDS: LOVENOX SUB-Q SCH (09:41)
[2017-08-23] MEDS: PEPCID PO SCH (09:41)
--- NOTE | 2017-08-23 09:57 | Progress Note ---
Assessment and Plan (1) Acute respiratory failure with hypoxia Current Visit: Yes Status: Acute Plan to address problem: Intubated on vent support (2) severe renal failure Current Visit: Yes Status: Acute Plan to address problem: Cr cont to imporve slowly, significant improvement in UOP, noted mild rise in BUN no indication for [employer]ICE [employer]IDENT will increase free water flushes to 250 cc Q4H to correct hypernatremia will add renvela for hyperphos, may stop tomorrow vasulitis work up is pending Obtain daily weights Renally dose medications Avoid Nephrotoxic agents Monitor renal function closely (3) Hypertensive emergency Current Visit: Yes Status: Acute Plan to address problem: off Cardene drip (4) Hyperphosphatemia Current Visit: Yes Status: Acute Plan to address problem: imported with binders (5) SIRS (systemic inflammatory response syndrome) Current Visit: Yes Status: Acute Plan to address problem: On IV Solumedrol, Levaquin Subjective Date of service: 08/23/17 Principal diagnosis: Acute Hypoxemic Respiratory Failure; GUZMAN; Morbid Obesity Interval history: intubated and sedated, father is at bedside, all questions answered Objective - Vital Signs Vital signs: Vital Signs - 12hr 08/22/17 08/22/17 08/22/17 22:00 22:30 23:00 Temperature Pulse Rate 92 H 86 80 Pulse Rate [ Anterior Bilateral Throughout] Pulse Rate [ From Monitor] Respiratory 19 20 20 Rate Respiratory Rate [Anterior Bilateral Throughout] Blood Pressure 154/83 139/73 137/76 O2 Sat by Pulse 95 95 95 Oximetry 08/22/17 08/22/17 08/22/17 23:21 23:30 23:58 Temperature 98.6 F Pulse Rate 78 77 Pulse Rate [ Anterior Bilateral Throughout] Pulse Rate [ From Monitor] Respiratory 20 Rate Respiratory Rate [Anterior Bilateral Throughout] Blood Pressure 137/76 134/71 O2 Sat by Pulse 95 95 Oximetry 08/23/17 08/23/17 08/23/17 00:00 00:25 00:30 Temperature Pulse Rate 101 H 93 H Pulse Rate [ Anterior Bilateral Throughout] Pulse Rate [ 94 H From Monitor] Respiratory 20 17 20 Rate Respiratory Rate [Anterior Bilateral Throughout] Blood Pressure 134/71 168/90 O2 Sat by Pulse 95 96 95 Oximetry 08/23/17 08/23/17 08/23/17 01:00 01:27 01:30 Temperature Pulse Rate 87 83 84 Pulse Rate [ Anterior Bilateral Throughout] Pulse Rate [ From Monitor] Respiratory 20 20 Rate Respiratory Rate [Anterior Bilateral Throughout] Blood Pressure 159/89 159/89 157/85 O2 Sat by Pulse 95 94 Oximetry 08/23/17 08/23/17 08/23/17 02:00 02:10 02:30 Temperature Pulse Rate 85 86 Pulse Rate [ 78 Anterior Bilateral Throughout] Pulse Rate [ From Monitor] Respiratory 20 20 Rate Respiratory 20 Rate [Anterior Bilateral Throughout] Blood Pressure 145/75 136/67 O2 Sat by Pulse 94 94 Oximetry 08/23/17 08/23/17 08/23/17 03:00 03:30 03:38 Temperature 99.6 F Pulse Rate 77 74 Pulse Rate [ Anterior Bilateral Throughout] Pulse Rate [ From Monitor] Respiratory 20 20 Rate Respiratory Rate [Anterior Bilateral Throughout] Blood Pressure 129/65 135/71 O2 Sat by Pulse 94 95 Oximetry 08/23/17 08/23/17 08/23/17 03:59 04:00 04:02 Temperature Pulse Rate 74 74 Pulse Rate [ Anterior Bilateral Throughout] Pulse Rate [ 82 From Monitor] Respiratory 20 Rate Respiratory Rate [Anterior Bilateral Throughout] Blood Pressure 133/70 133/70 O2 Sat by Pulse 96 95 Oximetry 08/23/17 08/23/17 08/23/17 04:30 05:00 05:14 Temperature Pulse Rate 110 H 104 H 91 H Pulse Rate [ Anterior Bilateral Throughout] Pulse Rate [ From Monitor] Respiratory 20 20 Rate Respiratory Rate [Anterior Bilateral Throughout] Blood Pressure 133/70 151/85 151/85 O2 Sat by Pulse 97 95 95 Oximetry 08/23/17 08/23/17 08/23/17 05:30 06:00 06:25 Temperature Pulse Rate 87 74 110 H Pulse Rate [ Anterior Bilateral Throughout] Pulse Rate [ From Monitor] Respiratory 21 20 18 Rate Respiratory Rate [Anterior Bilateral Throughout] Blood Pressure 155/88 148/81 108/87 O2 Sat by Pulse 96 95 98 Oximetry 08/23/17 08/23/17 08/23/17 06:30 07:00 07:30 Temperature Pulse Rate 97 H 106 H 105 H Pulse Rate [ Anterior Bilateral Throughout] Pulse Rate [ From Monitor] Respiratory 17 14 15 Rate Respiratory Rate [Anterior Bilateral Throughout] Blood Pressure 169/106 170/110 170/110 O2 Sat by Pulse 96 95 94 Oximetry 08/23/17 08:00 Temperature 98.8 F Pulse Rate 100 H Pulse Rate [ Anterior Bilateral Throughout] Pulse Rate [ 103 H From Monitor] Respiratory 14 Rate Respiratory Rate [Anterior Bilateral Throughout] Blood Pressure 165/107 O2 Sat by Pulse 95 Oximetry - General Appearance General appearance: sedated on ventilator, intubated EENT: ATNC, PERRL, mucous membranes moist Neck: no JVD, no carotid bruit Respiratory: Present: Decreased Breath Sounds Cardiology: tachycardia Gastrointestinal: normoactive bowel sounds, no tenderness, no distended, no guarding, obese Integumentary: no rash, warm and dry Neurologic: other (sedated) Musculoskeletal: other (trace pitting edema in BLE) Psychiatric: other (sedated and intubated) - Lab 08/23/17 04:22 08/23/17 04:22 Most recent lab results Calcium 8.4 mg/dL (8.4-10.2) 08/23/17 04:22 Phosphorus 3.50 mg/dL (2.5-4.5) D 08/23/17 04:22 Magnesium 3.40 mg/dL (1.7-2.3) H 08/23/17 04:22 Urine Creatinine 436.1 mg/dL (0.1-20.0) H 08/19/17 13:40 Urine Sodium 29 mEq/L 08/19/17 13:40 Urine Total Protein 140 mg/dL (5-11.8) H 08/19/17 13:40
[2017-08-23] MEDS: BROVANA NEBU IH SCH ×2 (10:59→19:52)
--- NOTE | 2017-08-23 11:48 | Progress Note ---
Assessment and Plan (1) Acute respiratory failure with hypoxia Current Visit: Yes Status: Acute Plan to address problem: - remains on MVS - continue to wean oxygen for sats >/= 94% - increased TV to 550 mls re: hypercapnia - continue daily sedation vacations and lighten sedation - daily PT/OT/ROM exercises - continue bronchodilators and pulmonary toilet - continue aspiration precautions / Address VAP bundle daily - continue daily PSV trials as tolerated while weaning sedation as much as possible to control agitation and tachypnea (2) Hypertensive emergency Current Visit: Yes Status: Acute Plan to address problem: - off cardene drip now - continue to titrate oral hypertensives - added metoprolol and hydralazine (3) GUZMAN (acute kidney injury) Current Visit: Yes Status: Acute Plan to address problem: - hyperkalemia corrected - improving urine output - nephrology evaluation ongoing - no indication for HD/UF at this point (4) Obesity, morbid Current Visit: Yes Status: Acute Plan to address problem: - weight loss counselled earlier - outpatient sleep clinic evaluation advised (5) SIRS (systemic inflammatory response syndrome) Current Visit: Yes Status: Acute Plan to address problem: - improved - continue empiric AB's and follow cultures - continue to treat azotemia - prn analgesia (6) Leucocytosis Current Visit: Yes Status: Acute Qualifiers: Leukocytosis type: L Plan to address problem: - WBC noted - suspect steroid + stress demarginalization - CRP & Lactate unremarkable (will trend) - continue empiric levaquin and follow cultures (7) Discharge planning issues Current Visit: Yes Status: Acute Plan to address problem: - he remains critically ill on life sustaining interventions including MVS and at risk for further deterioration including - care plan discussed with patient and mother at bedside ...30' CCT today Subjective Date of service: 08/23/17 Principal diagnosis: Acute Hypoxemic Respiratory Failure; GUZMAN; Morbid Obesity Interval history: Seen and examined at bedside; 24 hour events reviewed; nursing and respiratory care staff consulted; no adverse overnight events reported to me; morrissmyriam on MVS ; ventilation still inadequate; requiring sedation during wean; no N/V/F/C Objective Vital Signs - 12hr 08/22/17 08/23/17 08/23/17 23:58 00:00 00:25 Temperature 98.6 F Pulse Rate 101 H Pulse Rate [ Anterior Bilateral Throughout] Pulse Rate [ 94 H From Monitor] Respiratory 20 17 Rate Respiratory Rate [Anterior Bilateral Throughout] Blood Pressure 134/71 O2 Sat by Pulse 95 96 Oximetry 08/23/17 08/23/17 08/23/17 00:30 01:00 01:27 Temperature Pulse Rate 93 H 87 83 Pulse Rate [ Anterior Bilateral Throughout] Pulse Rate [ From Monitor] Respiratory 20 20 Rate Respiratory Rate [Anterior Bilateral Throughout] Blood Pressure 168/90 159/89 159/89 O2 Sat by Pulse 95 95 Oximetry 08/23/17 08/23/17 08/23/17 01:30 02:00 02:10 Temperature Pulse Rate 84 85 Pulse Rate [ 78 Anterior Bilateral Throughout] Pulse Rate [ From Monitor] Respiratory 20 20 Rate Respiratory 20 Rate [Anterior Bilateral Throughout] Blood Pressure 157/85 145/75 O2 Sat by Pulse 94 94 Oximetry 08/23/17 08/23/17 08/23/17 02:30 03:00 03:30 Temperature Pulse Rate 86 77 74 Pulse Rate [ Anterior Bilateral Throughout] Pulse Rate [ From Monitor] Respiratory 20 20 20 Rate Respiratory Rate [Anterior Bilateral Throughout] Blood Pressure 136/67 129/65 135/71 O2 Sat by Pulse 94 94 95 Oximetry 08/23/17 08/23/17 08/23/17 03:38 03:59 04:00 Temperature 99.6 F Pulse Rate 74 74 Pulse Rate [ Anterior Bilateral Throughout] Pulse Rate [ From Monitor] Respiratory 20 Rate Respiratory Rate [Anterior Bilateral Throughout] Blood Pressure 133/70 133/70 O2 Sat by Pulse 96 95 Oximetry 08/23/17 08/23/17 08/23/17 04:02 04:30 05:00 Temperature Pulse Rate 110 H 104 H Pulse Rate [ Anterior Bilateral Throughout] Pulse Rate [ 82 From Monitor] Respiratory 20 20 Rate Respiratory Rate [Anterior Bilateral Throughout] Blood Pressure 133/70 151/85 O2 Sat by Pulse 97 95 Oximetry 08/23/17 08/23/17 08/23/17 05:14 05:30 06:00 Temperature Pulse Rate 91 H 87 74 Pulse Rate [ Anterior Bilateral Throughout] Pulse Rate [ From Monitor] Respiratory 21 20 Rate Respiratory Rate [Anterior Bilateral Throughout] Blood Pressure 151/85 155/88 148/81 O2 Sat by Pulse 95 96 95 Oximetry 08/23/17 08/23/17 08/23/17 06:25 06:30 07:00 Temperature Pulse Rate 110 H 97 H 106 H Pulse Rate [ Anterior Bilateral Throughout] Pulse Rate [ From Monitor] Respiratory 18 17 14 Rate Respiratory Rate [Anterior Bilateral Throughout] Blood Pressure 108/87 169/106 170/110 O2 Sat by Pulse 98 96 95 Oximetry 08/23/17 08/23/17 08/23/17 07:30 08:00 08:30 Temperature 98.8 F Pulse Rate 105 H 100 H 98 H Pulse Rate [ Anterior Bilateral Throughout] Pulse Rate [ 103 H From Monitor] Respiratory 15 14 12 Rate Respiratory Rate [Anterior Bilateral Throughout] Blood Pressure 170/110 165/107 173/111 O2 Sat by Pulse 94 95 97 Oximetry 08/23/17 08/23/17 08/23/17 09:00 09:30 09:45 Temperature Pulse Rate 103 H 150 H 100 H Pulse Rate [ Anterior Bilateral Throughout] Pulse Rate [ From Monitor] Respiratory 19 24 Rate Respiratory Rate [Anterior Bilateral Throughout] Blood Pressure 173/111 166/105 165/107 O2 Sat by Pulse 96 96 99 Oximetry 08/23/17 08/23/17 08/23/17 10:00 10:30 11:00 Temperature Pulse Rate 117 H 94 H 109 H Pulse Rate [ Anterior Bilateral Throughout] Pulse Rate [ From Monitor] Respiratory 20 19 21 Rate Respiratory Rate [Anterior Bilateral Throughout] Blood Pressure 166/96 142/83 165/93 O2 Sat by Pulse 96 97 97 Oximetry Constitutional: no acute distress, lethargic Eyes: non-icteric ENT: oropharynx moist Neck: supple, no lymphadenopathy, other (large neck circumfrence; possible ANGIE) Effort: mildly labored Ascultation: Bilateral: diminished breath sounds, rhonchi (scant in bases) Cardiovascular: regular rate and rhythm Gastrointestinal: normoactive bowel sounds, soft, non-tender, non-distended Integumentary: normal Extremities: no cyanosis, no edema, pulses normal, no ischemia or petechiae Neurologic: normal mental status, non-focal exam, pupils equal and round, motor strength normal and Psychiatric: mood appropriate, affect normal CBC and BMP: 08/25/17 06:43 08/25/17 06:43 ABG, PT/INR, D-dimer: ABG POC ABG pH 7.298 (7.35-7.45) L 08/22/17 17:40 POC ABG pCO2 51.3 (35-45) H 08/22/17 17:40 POC ABG pO2 94 (80-105) 08/22/17 17:40 POC ABG HCO3 25.1 08/22/17 17:40 POC ABG Total CO2 27 08/22/17 17:40 POC ABG O2 Sat 96 08/22/17 17:40 PT/INR, D-dimer D-Dimer 698.53 ng/mlDDU (0-234) H 08/19/17 15:03 Abnormal lab findings: Abnormal Labs 08/18/17 08/18/17 08/19/17 16:54 17:26 04:37 WBC 18.1 H Hgb RDW Lymph % (Auto) 6.1 L Lymph # 1.1 L Seg Neutrophils % 89.7 H Seg Neuts % (Manual) Lymphocytes % (Manual) Nucleated RBC % Seg Neutrophils # 16.2 H Seg Neutrophils # Man Monocytes # (Manual) D-Dimer POC ABG pH 7.231 L POC ABG pCO2 63.3 H POC ABG pO2 Sodium Potassium Chloride Carbon Dioxide BUN Creatinine Glucose POC Glucose Uric Acid Calcium Phosphorus Magnesium Lactate Dehydrogenase Total Creatine Kinase C-Reactive Protein Albumin Urine WBC (Auto) 9.0 H Urine Creatinine Urine Total Protein 08/19/17 08/19/17 08/19/17 04:37 05:37 13:40 WBC Hgb RDW Lymph % (Auto) Lymph # Seg Neutrophils % Seg Neuts % (Manual) Lymphocytes % (Manual) Nucleated RBC % Seg Neutrophils # Seg Neutrophils # Man Monocytes # (Manual) D-Dimer POC ABG pH 7.320 L POC ABG pCO2 POC ABG pO2 Sodium Potassium Chloride Carbon Dioxide BUN 22 H Creatinine 2.9 H D Glucose 124 H POC Glucose Uric Acid Calcium Phosphorus 1.00 L Magnesium Lactate Dehydrogenase Total Creatine Kinase C-Reactive Protein Albumin 3.5 L Urine WBC (Auto) Urine Creatinine 430.8 H Urine Total Protein 144 H 08/19/17 08/19/17 08/19/17 13:40 15:03 18:43 WBC Hgb RDW Lymph % (Auto) Lymph # Seg Neutrophils % Seg Neuts % (Manual) Lymphocytes % (Manual) Nucleated RBC % Seg Neutrophils # Seg Neutrophils # Man Monocytes # (Manual) D-Dimer 698.53 H POC ABG pH POC ABG pCO2 POC ABG pO2 Sodium Potassium Chloride Carbon Dioxide BUN Creatinine Glucose POC Glucose Uric Acid Calcium Phosphorus Magnesium Lactate Dehydrogenase Total Creatine Kinase C-Reactive Protein 3.30 H Albumin Urine WBC (Auto) Urine Creatinine 436.1 H Urine Total Protein 140 H 08/20/17 08/20/17 08/20/17 04:04 04:04 05:18 WBC 26.5 H Hgb RDW Lymph % (Auto) Lymph # Seg Neutrophils % Seg Neuts % (Manual) Lymphocytes % (Manual) 12.0 L Nucleated RBC % Seg Neutrophils # Seg Neutrophils # Man 15.9 H Monocytes # (Manual) 1.3 H D-Dimer POC ABG pH 7.263 L POC ABG pCO2 48.7 H POC ABG pO2 Sodium Potassium 6.1 H* D Chloride Carbon Dioxide 20 L BUN 44 H Creatinine 4.3 H Glucose 111 H POC Glucose Uric Acid Calcium Phosphorus 7.30 H D Magnesium Lactate Dehydrogenase Total Creatine Kinase C-Reactive Protein Albumin Urine WBC (Auto) Urine Creatinine Urine Total Protein 08/20/17 08/20/17 08/20/17 08:51 10:02 10:34 WBC Hgb RDW Lymph % (Auto) Lymph # Seg Neutrophils % Seg Neuts % (Manual) Lymphocytes % (Manual) Nucleated RBC % Seg Neutrophils # Seg Neutrophils # Man Monocytes # (Manual) D-Dimer POC ABG pH 7.232 L POC ABG pCO2 54.1 H POC ABG pO2 75 L Sodium Potassium Chloride Carbon Dioxide BUN 52 H Creatinine 4.5 H Glucose 118 H POC Glucose 110 H Uric Acid Calcium 8.2 L Phosphorus Magnesium Lactate Dehydrogenase Total Creatine Kinase C-Reactive Protein Albumin Urine WBC (Auto) Urine Creatinine Urine Total Protein 08/20/17 08/20/17 08/20/17 10:34 22:12 23:49 WBC Hgb RDW Lymph % (Auto) Lymph # Seg Neutrophils % Seg Neuts % (Manual) Lymphocytes % (Manual) Nucleated RBC % Seg Neutrophils # Seg Neutrophils # Man Monocytes # (Manual) D-Dimer POC ABG pH 7.314 L POC ABG pCO2 45.8 H POC ABG pO2 114 H Sodium Potassium Chloride Carbon Dioxide BUN Creatinine Glucose POC Glucose 119 H Uric Acid 9.7 H Calcium Phosphorus Magnesium Lactate Dehydrogenase 250 H Total Creatine Kinase 623 H C-Reactive Protein Albumin Urine WBC (Auto) Urine Creatinine Urine Total Protein 08/21/17 08/21/17 08/21/17 04:57 05:55 06:25 WBC 14.2 H Hgb 11.7 L RDW Lymph % (Auto) Lymph # Seg Neutrophils % Seg Neuts % (Manual) Lymphocytes % (Manual) 10.0 L Nucleated RBC % Seg Neutrophils # Seg Neutrophils # Man 8.8 H Monocytes # (Manual) D-Dimer POC ABG pH 7.321 L POC ABG pCO2 46.8 H POC ABG pO2 115 H Sodium Potassium Chloride Carbon Dioxide BUN Creatinine Glucose POC Glucose 134 H Uric Acid Calcium Phosphorus Magnesium Lactate Dehydrogenase Total Creatine Kinase C-Reactive Protein Albumin Urine WBC (Auto) Urine Creatinine Urine Total Protein 08/21/17 08/21/17 08/21/17 06:25 06:34 10:29 WBC Hgb RDW Lymph % (Auto) Lymph # Seg Neutrophils % Seg Neuts % (Manual) Lymphocytes % (Manual) Nucleated RBC % Seg Neutrophils # Seg Neutrophils # Man Monocytes # (Manual) D-Dimer POC ABG pH POC ABG pCO2 POC ABG pO2 Sodium 147 H Potassium Chloride 110.3 H Carbon Dioxide BUN 69 H Creatinine 4.1 H Glucose 115 H POC Glucose Uric Acid Calcium 8.0 L Phosphorus 5.00 H D Magnesium 2.60 H Lactate Dehydrogenase Total Creatine Kinase C-Reactive Protein Albumin Urine WBC (Auto) Urine Creatinine Urine Total Protein 08/21/17 08/21/17 08/22/17 11:41 17:03 04:54 WBC Hgb RDW Lymph % (Auto) Lymph # Seg Neutrophils % Seg Neuts % (Manual) Lymphocytes % (Manual) Nucleated RBC % Seg Neutrophils # Seg Neutrophils # Man Monocytes # (Manual) D-Dimer POC ABG pH 7.301 L POC ABG pCO2 55.6 H POC ABG pO2 Sodium Potassium Chloride Carbon Dioxide BUN Creatinine Glucose POC Glucose 128 H 115 H Uric Acid Calcium Phosphorus Magnesium Lactate Dehydrogenase Total Creatine Kinase C-Reactive Protein Albumin Urine WBC (Auto) Urine Creatinine Urine Total Protein 08/22/17 08/22/17 08/22/17 05:10 05:27 05:27 WBC 17.5 H Hgb RDW 15.3 H Lymph % (Auto) Lymph # Seg Neutrophils % Seg Neuts % (Manual) 71.0 H Lymphocytes % (Manual) 11.0 L Nucleated RBC % Seg Neutrophils # Seg Neutrophils # Man 12.4 H Monocytes # (Manual) D-Dimer POC ABG pH POC ABG pCO2 POC ABG pO2 Sodium 149 H Potassium 5.1 H Chloride 113.1 H Carbon Dioxide BUN 79 H Creatinine 3.8 H Glucose 124 H POC Glucose 127 H Uric Acid Calcium 7.9 L Phosphorus 5.90 H Magnesium Lactate Dehydrogenase Total Creatine Kinase C-Reactive Protein Albumin Urine WBC (Auto) Urine Creatinine Urine Total Protein 08/22/17 08/22/17 08/23/17 16:53 17:40 04:22 WBC 16.8 H Hgb RDW Lymph % (Auto) Lymph # Seg Neutrophils % Seg Neuts % (Manual) 92.0 H Lymphocytes % (Manual) 7.0 L Nucleated RBC % 1.0 H Seg Neutrophils # Seg Neutrophils # Man 15.5 H Monocytes # (Manual) D-Dimer POC ABG pH 7.298 L POC ABG pCO2 51.3 H POC ABG pO2 Sodium Potassium Chloride Carbon Dioxide BUN Creatinine Glucose POC Glucose 109 H Uric Acid Calcium Phosphorus Magnesium Lactate Dehydrogenase Total Creatine Kinase C-Reactive Protein Albumin Urine WBC (Auto) Urine Creatinine Urine Total Protein 08/23/17 08/23/17 08/23/17 04:22 04:22 05:07 WBC Hgb RDW Lymph % (Auto) Lymph # Seg Neutrophils % Seg Neuts % (Manual) Lymphocytes % (Manual) Nucleated RBC % Seg Neutrophils # Seg Neutrophils # Man Monocytes # (Manual) D-Dimer POC ABG pH POC ABG pCO2 POC ABG pO2 Sodium 148 H Potassium Chloride 110.9 H Carbon Dioxide 21 L BUN 85 H Creatinine 3.6 H Glucose 148 H POC Glucose 134 H Uric Acid Calcium Phosphorus Magnesium 3.40 H Lactate Dehydrogenase Total Creatine Kinase C-Reactive Protein Albumin Urine WBC (Auto) Urine Creatinine Urine Total Protein Chest x-ray: image reviewed
[2017-08-23] MEDS: APRESOLINE PO SCH ×2 (15:05→22:00)
[2017-08-23] MEDS: LOPRESSOR PO SCH ×2 (15:06→22:00)
--- NOTE | 2017-08-23 18:14 | Progress Note ---
Assessment and Plan Assessment and plan: 47-year-old man who was admitted for asthma exacerbation, who decompensated and had to be intubated Acute hypoxic resp faillure due to asthma exacerbation, on mechanical ventilator less than 96 hours. He is still intubated on ventilator. Pulmonology following. on FiO2 of 40% Continue CPAP trials, continue to attempt to wean daily Asthma exacerbation. On solumedrol, levaquin, Duoneb Hyperkalemia. Received Kayexalate, now improved Sepsis/pneumonitis: Continue antibiotics Acute Kidney Injury due to Acute tubular necrosis. Renal Function is now improving, Creatinine 3.8 today. Continue Strict I/O. Nephrology following. Case discussed with consultants and family at the bedside DVT prophylaxis with Lovenox. Full code status The high probability of a clinically significant, sudden or life threatening deterioration of the [respiratory] system(s) required my full and direct attention, intervention and personal management. The aggregate critical care time was [33] minutes. This time is in addition to time spent performing reported procedures but includes the following: [] Data Review and interpretation [] Patient assessment and monitoring of vital signs [] Documentation [] Medication orders and management History Interval history: He has been tolerating CPAP trials, had some episodes of agitation, for which he received IV pushes sedation Hospitalist Physical - Physical exam Narrative exam: General.: Appears well, no distress, nontoxic HEENT: Moist mucous membranes, extraocular muscles intact, no lymphadenopathy Neck: supple Cardiac: S1-S2 heard Lungs: Ventilated breath sounds Abdomen: soft , nontender, nondistended, bowel sounds positive Extremities: no edema clubbing or cyanosis Skin: no rash or lesions Neurologic: Intubated and sedated - Constitutional Vitals: Temp Pulse Resp BP Pulse Ox 98.6 F 73 20 159/88 94 08/23/17 16:00 08/23/17 17:00 08/23/17 17:00 08/23/17 17:00 08/23/17 17:00 General appearance: Present: no acute distress Results - Labs CBC & Chem 7: 08/25/17 06:43 08/25/17 06:43 Labs: Laboratory Last Values WBC 16.8 K/mm3 (4.5-11.0) H 08/23/17 04:22 RBC 4.85 M/mm3 (3.65-5.03) 08/23/17 04:22 Hgb 13.5 gm/dl (11.8-15.2) 08/23/17 04:22 Hct 41.9 % (35.5-45.6) 08/23/17 04:22 MCV 86 fl (84-94) 08/23/17 04:22 MCH 28 pg (28-32) 08/23/17 04:22 MCHC 32 % (32-34) 08/23/17 04:22 RDW 15.1 % (13.2-15.2) 08/23/17 04:22 Plt Count 296 K/mm3 (140-440) 08/23/17 04:22 Lymph % (Auto) 6.1 % (13.4-35.0) L 08/19/17 04:37 [place] % (Auto) 4.1 % (0.0-7.3) 08/19/17 04:37 Eos % (Auto) 0.0 % (0.0-4.3) 08/19/17 04:37 Baso % (Auto) 0.1 % (0.0-1.8) 08/19/17 04:37 Lymph # 1.1 K/mm3 (1.2-5.4) L 08/19/17 04:37 [place] # 0.7 K/mm3 (0.0-0.8) 08/19/17 04:37 Eos # 0.0 K/mm3 (0.0-0.4) 08/19/17 04:37 Baso # 0.0 K/mm3 (0.0-0.1) 08/19/17 04:37 Add Manual Diff Complete 08/23/17 04:22 Total Counted 100 08/23/17 04:22 Seg Neutrophils % Classified Ad Clerk 08/22/17 05:27 Seg Neuts % (Manual) 92.0 % (40.0-70.0) H 08/23/17 04:22 Band Neutrophils % 0 % 08/23/17 04:22 Lymphocytes % (Manual) 7.0 % (13.4-35.0) L 08/23/17 04:22 Reactive Lymphs % (Man) 1.0 % 08/23/17 04:22 Monocytes % (Manual) 0 % (0.0-7.3) 08/23/17 04:22 Eosinophils % (Manual) 0 % (0.0-4.3) 08/23/17 04:22 Basophils % (Manual) 0 % (0.0-1.8) 08/23/17 04:22 Metamyelocytes % 0 % 08/23/17 04:22 Myelocytes % 0 % 08/23/17 04:22 Promyelocytes % 0 % 08/23/17 04:22 Blast Cells % 0 % 08/23/17 04:22 Nucleated RBC % 1.0 % (0.0-0.9) H 08/23/17 04:22 Seg Neutrophils # 16.2 K/mm3 (1.8-7.7) H 08/19/17 04:37 Seg Neutrophils # Man 15.5 K/mm3 (1.8-7.7) H 08/23/17 04:22 Band Neutrophils # 0.0 K/mm3 08/23/17 04:22 Lymphocytes # (Manual) 1.2 K/mm3 (1.2-5.4) 08/23/17 04:22 Abs React Lymphs (Man) 0.2 K/mm3 08/23/17 04:22 Monocytes # (Manual) 0.0 K/mm3 (0.0-0.8) 08/23/17 04:22 Eosinophils # (Manual) 0.0 K/mm3 (0.0-0.4) 08/23/17 04:22 Basophils # (Manual) 0.0 K/mm3 (0.0-0.1) 08/23/17 04:22 Metamyelocytes # 0.0 K/mm3 08/23/17 04:22 Myelocytes # 0.0 K/mm3 08/23/17 04:22 Promyelocytes # 0.0 K/mm3 08/23/17 04:22 Blast Cells # 0.0 K/mm3 08/23/17 04:22 WBC Morphology Not Reportable 08/23/17 04:22 Hypersegmented Neuts Not Reportable 08/23/17 04:22 Hyposegmented Neuts Not Reportable 08/23/17 04:22 Hypogranular Neuts Not Reportable 08/23/17 04:22 Smudge Cells Not Reportable 08/23/17 04:22 Toxic Granulation Not Reportable 08/23/17 04:22 Toxic Vacuolation Not Reportable 08/23/17 04:22 Dohle Bodies Not Reportable 08/23/17 04:22 Pelger-Huet Anomaly Not Reportable 08/23/17 04:22 Merry Rods Not Reportable 08/23/17 04:22 Platelet Estimate Consistent w auto 08/23/17 04:22 Clumped Platelets Not Reportable 08/23/17 04:22 Plt Clumps, EDTA Not Reportable 08/23/17 04:22 Large Platelets Not Reportable 08/23/17 04:22 Giant Platelets Not Reportable 08/23/17 04:22 Platelet Satelliting Not Reportable 08/23/17 04:22 Plt Morphology Comment Not Reportable 08/23/17 04:22 RBC Morphology Not Reportable 08/23/17 04:22 Dimorphic RBCs Not Reportable 08/23/17 04:22 Polychromasia Not Reportable 08/23/17 04:22 Hypochromasia Not Reportable 08/23/17 04:22 Poikilocytosis Not Reportable 08/23/17 04:22 Anisocytosis Not Reportable 08/23/17 04:22 Microcytosis Not Reportable 08/23/17 04:22 Macrocytosis Not Reportable 08/23/17 04:22 Spherocytes Not Reportable 08/23/17 04:22 Pappenheimer Bodies Not Reportable 08/23/17 04:22 Sickle Cells Not Reportable 08/23/17 04:22 Target Cells Not Reportable 08/23/17 04:22 Tear Drop Cells Not Reportable 08/23/17 04:22 Ovalocytes Not Reportable 08/23/17 04:22 Helmet Cells Not Reportable 08/23/17 04:22 [place] Bodies Not Reportable 08/23/17 04:22 [place] Rings Not Reportable 08/23/17 04:22 [place] Cells Not Reportable 08/23/17 04:22 Bite Cells Not Reportable 08/23/17 04:22 Crenated Cell Not Reportable 08/23/17 04:22 Elliptocytes Not Reportable 08/23/17 04:22 Acanthocytes (Spur) Not Reportable 08/23/17 04:22 Rouleaux Not Reportable 08/23/17 04:22 Hemoglobin C Crystals Not Reportable 08/23/17 04:22 Schistocytes Not Reportable 08/23/17 04:22 Malaria parasites Not Reportable 08/23/17 04:22 Sudhakar Bodies Not Reportable 08/23/17 04:22 Haptoglobin 208 mg/dL (43-212) 08/20/17 10:34 Hem Pathologist Commnt No 08/23/17 04:22 D-Dimer 698.53 ng/mlDDU (0-234) H 08/19/17 15:03 POC ABG pH 7.298 (7.35-7.45) L 08/22/17 17:40 POC ABG pCO2 51.3 (35-45) H 08/22/17 17:40 POC ABG pO2 94 (80-105) 08/22/17 17:40 POC ABG HCO3 25.1 08/22/17 17:40 POC ABG Total CO2 27 08/22/17 17:40 POC ABG O2 Sat 96 08/22/17 17:40 POC ABG Base Excess -1 08/22/17 17:40 FiO2 40 % 08/22/17 17:40 Sodium 148 mmol/L (137-145) H 08/23/17 04:22 Potassium 4.2 mmol/L (3.6-5.0) 08/23/17 04:22 Chloride 110.9 mmol/L (98-107) H 08/23/17 04:22 Carbon Dioxide 21 mmol/L (22-30) L 08/23/17 04:22 Anion Gap 20 mmol/L 08/23/17 04:22 BUN 85 mg/dL (9-20) H 08/23/17 04:22 Creatinine 3.6 mg/dL (0.8-1.5) H 08/23/17 04:22 Estimated GFR 22 ml/min 08/23/17 04:22 BUN/Creatinine Ratio 23.61 % 08/23/17 04:22 Glucose 148 mg/dL (75-100) H 08/23/17 04:22 POC Glucose 134 (70-105) H 08/23/17 05:07 Osmolality 319 Mosm/kg 08/20/17 04:04 Lactic Acid 1.10 mmol/L (0.7-2.0) 08/21/17 06:25 Uric Acid 9.7 mg/dL (3.5-7.6) H 08/20/17 10:34 Calcium 8.4 mg/dL (8.4-10.2) 08/23/17 04:22 Phosphorus 3.50 mg/dL (2.5-4.5) D 08/23/17 04:22 Magnesium 3.40 mg/dL (1.7-2.3) H 08/23/17 04:22 Total Bilirubin 0.30 mg/dL (0.1-1.2) 08/20/17 04:04 AST 30 units/L (5-40) 08/20/17 04:04 ALT 19 units/L (7-56) 08/20/17 04:04 Alkaline Phosphatase 67 units/L (35-129) 08/20/17 04:04 Lactate Dehydrogenase 250 units/L (91-180) H 08/20/17 10:34 Total Creatine Kinase 623 units/L (55-170) H 08/20/17 10:34 Troponin T < 0.010 ng/mL (0.00-0.029) 08/18/17 08:32 C-Reactive Protein 3.30 mg/dL (0.00-1.30) H 08/19/17 18:43 NT-Pro-B Natriuret Pep 18.05 pg/mL (0-450) 08/18/17 08:32 Total Protein 7.2 g/dL (6.3-8.2) 08/20/17 04:04 Albumin 4.1 g/dL (3.9-5) 08/20/17 04:04 Albumin/Globulin Ratio 1.3 % 08/20/17 04:04 Urine Color Yellow (Yellow) 08/18/17 17:26 Urine Turbidity Clear (Clear) 08/18/17 17:26 Urine pH 5.0 (5.0-7.0) 08/18/17 17:26 Ur Specific [place] 1.026 (1.003-1.030) 08/18/17 17:26 Urine Protein >500 mg/dL (Negative) 08/18/17 17:26 Urine Glucose (UA) 50 mg/dL (Negative) 08/18/17 17:26 Urine Ketones Tr mg/dL (Negative) 08/18/17 17:26 Urine Blood Sm (Negative) 08/18/17 17:26 Urine Nitrite Neg (Negative) 08/18/17 17:26 Urine Bilirubin Neg (Negative) 08/18/17 17:26 Urine Urobilinogen < 2.0 mg/dL (<2.0) 08/18/17 17:26 Ur Leukocyte Esterase Neg (Negative) 08/18/17 17:26 Urine WBC (Auto) 9.0 /HPF (0.0-6.0) H 08/18/17 17:26 Urine RBC (Auto) 5.0 /HPF (0.0-6.0) 08/18/17 17:26 U Epithel Cells (Auto) < 1.0 /HPF (0-13.0) 08/18/17 17:26 Urine Mucus Few /HPF 08/18/17 17:26 Urine Eosinophils None seen (None Seen) 08/19/17 13:40 Urine Osmolality 542 Mosm/kg 08/19/17 13:40 Urine Creatinine 436.1 mg/dL (0.1-20.0) H 08/19/17 13:40 Protein/Creatinin Ratio 0.33 08/19/17 13:40 Urine Sodium 29 mEq/L 08/19/17 13:40 Urine Total Protein 140 mg/dL (5-11.8) H 08/19/17 13:40 Hep Bs Antigen Non-reactive (Negative) 08/21/17 10:29 Hepatitis C Antibody Non-reactive (NonReactive) 08/21/17 10:29
[2017-08-24] MEDS: DUONEB *Not for PRN Use IH SCH ×4 (01:10→22:23)
[2017-08-24 04:40] LABS: ISTAT Base Excess 1; ISTAT HCO3 25.2; ISTAT PCO2 35.3 (35-45); ISTAT PH 7.461 (7.35-7.45); ISTAT PO2 96 (80-105); ISTAT SO2 98; ISTAT TCO2 26
[2017-08-24] MEDS: LOPRESSOR PO SCH ×3 (06:00→21:50)
[2017-08-24 07:02] LABS: Basophils % (Auto) 0.1 % (0.0-1.8); Hematocrit 40.2 % (35.5-45.6); Hemoglobin 13.6 gm/dl (11.8-15.2); Mean Corpuscular HGB Conc 34 % (32-34); Mean Corpuscular Hemoglobin 29 pg (28-32); Mean Corpuscular Volume 85 fl (84-94); Platelet Count 238 K/mm3 (140-440); Red Blood Count 4.74 M/mm3 (3.65-5.03); Red Cell Distribution Width 14.7 % (13.2-15.2); White Blood Count 15.9 K/mm3 (4.5-11.0)
[2017-08-24 07:19] LABS: BUN/Creatinine Ratio 29.31; Calcium 8.8 mg/dL (8.4-10.2); Chloride 114.4 mmol/L (98-107); Potassium 4.2 mmol/L (3.6-5.0)
[2017-08-24] MEDS: RENVELA PO SCH ×3 (07:49→20:31)
[2017-08-24 07:51] LABS: Phosphorous 3.6 mg/dL (2.5-4.5)
[2017-08-24] MEDS: BROVANA NEBU IH SCH ×2 (09:24→22:23)
[2017-08-24] MEDS: APRESOLINE PO SCH ×2 (09:33→21:50)
[2017-08-24] MEDS: PEPCID PO SCH (09:34)
[2017-08-24] MEDS: LOVENOX SUB-Q SCH (09:34)
--- NOTE | 2017-08-24 11:20 | Progress Note ---
Assessment and Plan - Patient Problems (1) Acute respiratory failure with hypoxia Current Visit: Yes Status: Acute Plan to address problem: Intubated on vent support (2) Acute renal failure due to tubular necrosis Current Visit: Yes Status: Acute Plan to address problem: Renal function reviewed. Current serum creatinine scott to 2.9 today from 3.6 yesterday, BUN 85 Non-oliguric ARF likely secondary to Ischemic Acute Tubular necrosis secondary to Sepsis Hypernatremia- increase free water flushes to 350 ml every 4 hours Vasculitis work-up in process Obtain daily weights Renally dose medications Avoid Nephrotoxic agents (3) SIRS (systemic inflammatory response syndrome) Current Visit: Yes Status: Acute Plan to address problem: On IV Solumedrol. S/P Levaquin and IV hydration (4) Hyperphosphatemia Current Visit: Yes Status: Acute Plan to address problem: Controlled on Renvela will decrease to 1 tab 800 mg TID Subjective Date of service: 08/24/17 Principal diagnosis: Acute Hypoxemic Respiratory Failure; GUZMAN; Morbid Obesity Interval history: Sedated and Intubated on vent support Objective - Vital Signs Vital signs: Vital Signs - 12hr 08/23/17 08/23/17 08/23/17 23:26 23:30 23:34 Temperature 99.6 F Pulse Rate 69 75 73 Pulse Rate [ From Monitor] Respiratory 20 20 Rate Respiratory Rate [denies] Blood Pressure 145/83 145/83 150/93 O2 Sat by Pulse 97 97 98 Oximetry 08/24/17 08/24/17 08/24/17 00:00 00:13 00:30 Temperature Pulse Rate 73 73 Pulse Rate [ 64 From Monitor] Respiratory 20 23 20 Rate Respiratory Rate [denies] Blood Pressure 140/79 130/77 O2 Sat by Pulse 94 98 94 Oximetry 08/24/17 08/24/17 08/24/17 01:00 01:30 02:00 Temperature Pulse Rate 68 65 70 Pulse Rate [ From Monitor] Respiratory 20 20 20 Rate Respiratory Rate [denies] Blood Pressure 132/78 137/82 152/88 O2 Sat by Pulse 94 94 96 Oximetry 08/24/17 08/24/17 08/24/17 02:30 03:00 03:08 Temperature Pulse Rate 62 62 67 Pulse Rate [ From Monitor] Respiratory 20 20 Rate Respiratory Rate [denies] Blood Pressure 149/80 144/83 144/83 O2 Sat by Pulse 94 94 97 Oximetry 08/24/17 08/24/17 08/24/17 03:30 04:00 04:07 Temperature Pulse Rate 69 64 Pulse Rate [ 68 From Monitor] Respiratory 20 20 18 Rate Respiratory Rate [denies] Blood Pressure 139/84 135/79 O2 Sat by Pulse 91 93 99 Oximetry 08/24/17 08/24/17 08/24/17 04:30 05:00 05:30 Temperature Pulse Rate 64 64 114 H Pulse Rate [ From Monitor] Respiratory 20 20 13 Rate Respiratory Rate [denies] Blood Pressure 135/79 129/76 129/76 O2 Sat by Pulse 93 93 98 Oximetry 08/24/17 08/24/17 08/24/17 06:00 06:30 07:00 Temperature Pulse Rate 74 71 63 Pulse Rate [ From Monitor] Respiratory 20 20 20 Rate Respiratory Rate [denies] Blood Pressure 195/117 167/90 167/90 O2 Sat by Pulse 96 92 96 Oximetry 08/24/17 08/24/17 08/24/17 07:30 08:00 08:30 Temperature 98.9 F Pulse Rate 63 64 61 Pulse Rate [ 60 From Monitor] Respiratory 20 20 20 Rate Respiratory Rate [denies] Blood Pressure 167/90 148/91 148/91 O2 Sat by Pulse 97 100 100 Oximetry 08/24/17 08/24/17 08/24/17 09:00 09:30 09:33 Temperature Pulse Rate 57 L 106 H 95 H Pulse Rate [ From Monitor] Respiratory 20 15 Rate Respiratory Rate [denies] Blood Pressure 150/81 135/78 135/78 O2 Sat by Pulse 100 99 Oximetry 08/24/17 08/24/17 10:00 10:30 Temperature Pulse Rate 85 82 Pulse Rate [ From Monitor] Respiratory 12 11 L Rate Respiratory 14 Rate [denies] Blood Pressure 155/90 155/90 O2 Sat by Pulse 93 97 Oximetry - General Appearance General appearance: sedated on ventilator, intubated EENT: ATNC, PERRL Neck: no JVD, supple Respiratory: Present: Decreased Breath Sounds, Other (intubated on vent) Cardiology: tachycardia, S1S2 Gastrointestinal: normoactive bowel sounds Integumentary: warm and dry Neurologic: other (Sedated and intubated) Musculoskeletal: no deformities, no erythema, no cyanosis, no clubbing - Lab 08/24/17 06:42 08/24/17 06:42 Most recent lab results Calcium 8.8 mg/dL (8.4-10.2) 08/24/17 06:42 Phosphorus 3.60 mg/dL (2.5-4.5) 08/24/17 06:42 Magnesium 3.40 mg/dL (1.7-2.3) H 08/23/17 04:22 Urine Creatinine 436.1 mg/dL (0.1-20.0) H 08/19/17 13:40 Urine Sodium 29 mEq/L 08/19/17 13:40 Urine Total Protein 140 mg/dL (5-11.8) H 08/19/17 13:40
--- NOTE | 2017-08-24 12:24 | Progress Note ---
Assessment and Plan (1) Acute respiratory failure with hypoxia Current Visit: Yes Status: Acute Plan to address problem: - remains on MVS - continue to wean oxygen for sats >/= 94% - increased TV to 550 mls re: hypercapnia - continue daily sedation vacations and lighten sedation - daily PT/OT/ROM exercises - continue bronchodilators and pulmonary toilet - continue aspiration precautions / Address VAP bundle daily - creduced Psupp to [id number] - ABG after 2 hours - begin seroquel for sedation without overt respiratory deppression and wean off fentanyl/propofol (2) Hypertensive emergency Current Visit: Yes Status: Acute Plan to address problem: - off cardene drip now - continue to titrate oral hypertensives - added metoprolol and hydralazine (3) GUZMAN (acute kidney injury) Current Visit: Yes Status: Acute Plan to address problem: - hyperkalemia corrected - improving urine output - nephrology evaluation ongoing - no indication for HD/UF at this point - serum creatinine also improving (4) Obesity, morbid Current Visit: Yes Status: Acute Plan to address problem: - weight loss counselled earlier - outpatient sleep clinic evaluation advised (5) SIRS (systemic inflammatory response syndrome) Current Visit: Yes Status: Acute Plan to address problem: - improved - continue empiric AB's and follow cultures - continue to treat azotemia - prn analgesia (6) Leucocytosis Current Visit: Yes Status: Acute Qualifiers: Leukocytosis type: L Plan to address problem: - WBC noted - suspect steroid + stress demarginalization - CRP & Lactate unremarkable (will trend) - continue empiric levaquin and follow cultures (7) Discharge planning issues Current Visit: Yes Status: Acute Plan to address problem: - he remains critically ill on life sustaining interventions including MVS and at risk for further deterioration including - care plan discussed with patient and mother at bedside ...30' CCT today Subjective Date of service: 08/24/17 Principal diagnosis: Acute Hypoxemic Respiratory Failure; GUZMAN; Morbid Obesity Interval history: Seen and examined at bedside; 24 hour events reviewed; nursing and respiratory care staff consulted; no adverse overnight events reported to me; tolerating PSV a little better today; Psupp at [id number] but room to wean; no emesis or overt aspiration; still with lethargy and requiring sedation to control tachypnea/agitation Objective Vital Signs - 12hr 08/24/17 08/24/17 08/24/17 00:30 01:00 01:30 Temperature Pulse Rate 73 68 65 Pulse Rate [ From Monitor] Respiratory 20 20 20 Rate Respiratory Rate [denies] Blood Pressure 130/77 132/78 137/82 O2 Sat by Pulse 94 94 94 Oximetry 08/24/17 08/24/17 08/24/17 02:00 02:30 03:00 Temperature Pulse Rate 70 62 62 Pulse Rate [ From Monitor] Respiratory 20 20 20 Rate Respiratory Rate [denies] Blood Pressure 152/88 149/80 144/83 O2 Sat by Pulse 96 94 94 Oximetry 08/24/17 08/24/17 08/24/17 03:08 03:30 04:00 Temperature Pulse Rate 67 69 64 Pulse Rate [ From Monitor] Respiratory 20 20 Rate Respiratory Rate [denies] Blood Pressure 144/83 139/84 135/79 O2 Sat by Pulse 97 91 93 Oximetry 08/24/17 08/24/17 08/24/17 04:07 04:30 05:00 Temperature Pulse Rate 64 64 Pulse Rate [ 68 From Monitor] Respiratory 18 20 20 Rate Respiratory Rate [denies] Blood Pressure 135/79 129/76 O2 Sat by Pulse 99 93 93 Oximetry 08/24/17 08/24/17 08/24/17 05:30 06:00 06:30 Temperature Pulse Rate 114 H 74 71 Pulse Rate [ From Monitor] Respiratory 13 20 20 Rate Respiratory Rate [denies] Blood Pressure 129/76 195/117 167/90 O2 Sat by Pulse 98 96 92 Oximetry 08/24/17 08/24/17 08/24/17 07:00 07:30 08:00 Temperature 98.9 F Pulse Rate 63 63 64 Pulse Rate [ 60 From Monitor] Respiratory 20 20 20 Rate Respiratory Rate [denies] Blood Pressure 167/90 167/90 148/91 O2 Sat by Pulse 96 97 100 Oximetry 08/24/17 08/24/17 08/24/17 08:30 09:00 09:25 Temperature Pulse Rate 61 57 L 102 H Pulse Rate [ From Monitor] Respiratory 20 20 18 Rate Respiratory Rate [denies] Blood Pressure 148/91 150/81 135/78 O2 Sat by Pulse 100 100 98 Oximetry 08/24/17 08/24/17 08/24/17 09:30 09:33 10:00 Temperature Pulse Rate 106 H 95 H 85 Pulse Rate [ From Monitor] Respiratory 15 12 Rate Respiratory 14 Rate [denies] Blood Pressure 135/78 135/78 155/90 O2 Sat by Pulse 99 93 Oximetry 08/24/17 10:30 Temperature Pulse Rate 82 Pulse Rate [ From Monitor] Respiratory 11 L Rate Respiratory Rate [denies] Blood Pressure 155/90 O2 Sat by Pulse 97 Oximetry Constitutional: no acute distress, lethargic Eyes: non-icteric ENT: oropharynx moist Neck: supple, no lymphadenopathy, other (large neck circumfrence; possible ANGIE) Effort: mildly labored Ascultation: Bilateral: diminished breath sounds, rales Cardiovascular: regular rate and rhythm Gastrointestinal: normoactive bowel sounds, soft, non-tender, non-distended Integumentary: normal Extremities: no cyanosis, no edema, pulses normal, no ischemia or petechiae Neurologic: normal mental status, non-focal exam, pupils equal and round, motor strength normal and Psychiatric: mood appropriate, affect normal CBC and BMP: 08/25/17 06:43 08/25/17 06:43 ABG, PT/INR, D-dimer: ABG POC ABG pH 7.461 (7.35-7.45) H 08/24/17 03:24 POC ABG pCO2 35.3 (35-45) 08/24/17 03:24 POC ABG pO2 96 (80-105) 08/24/17 03:24 POC ABG HCO3 25.2 08/24/17 03:24 POC ABG Total CO2 26 08/24/17 03:24 POC ABG O2 Sat 98 08/24/17 03:24 PT/INR, D-dimer D-Dimer 698.53 ng/mlDDU (0-234) H 08/19/17 15:03 Abnormal lab findings: Abnormal Labs 08/18/17 08/18/17 08/19/17 16:54 17:26 04:37 WBC 18.1 H Hgb RDW Lymph % (Auto) 6.1 L [place] % (Auto) Lymph # 1.1 L [place] # Seg Neutrophils % 89.7 H Seg Neuts % (Manual) Lymphocytes % (Manual) Nucleated RBC % Seg Neutrophils # 16.2 H Seg Neutrophils # Man Monocytes # (Manual) D-Dimer POC ABG pH 7.231 L POC ABG pCO2 63.3 H POC ABG pO2 Sodium Potassium Chloride Carbon Dioxide BUN Creatinine Glucose POC Glucose Uric Acid Calcium Phosphorus Magnesium Lactate Dehydrogenase Total Creatine Kinase C-Reactive Protein Albumin Urine WBC (Auto) 9.0 H Urine Creatinine Urine Total Protein 08/19/17 08/19/17 08/19/17 04:37 05:37 13:40 WBC Hgb RDW Lymph % (Auto) [place] % (Auto) Lymph # [place] # Seg Neutrophils % Seg Neuts % (Manual) Lymphocytes % (Manual) Nucleated RBC % Seg Neutrophils # Seg Neutrophils # Man Monocytes # (Manual) D-Dimer POC ABG pH 7.320 L POC ABG pCO2 POC ABG pO2 Sodium Potassium Chloride Carbon Dioxide BUN 22 H Creatinine 2.9 H D Glucose 124 H POC Glucose Uric Acid Calcium Phosphorus 1.00 L Magnesium Lactate Dehydrogenase Total Creatine Kinase C-Reactive Protein Albumin 3.5 L Urine WBC (Auto) Urine Creatinine 430.8 H Urine Total Protein 144 H 08/19/17 08/19/17 08/19/17 13:40 15:03 18:43 WBC Hgb RDW Lymph % (Auto) [place] % (Auto) Lymph # [place] # Seg Neutrophils % Seg Neuts % (Manual) Lymphocytes % (Manual) Nucleated RBC % Seg Neutrophils # Seg Neutrophils # Man Monocytes # (Manual) D-Dimer 698.53 H POC ABG pH POC ABG pCO2 POC ABG pO2 Sodium Potassium Chloride Carbon Dioxide BUN Creatinine Glucose POC Glucose Uric Acid Calcium Phosphorus Magnesium Lactate Dehydrogenase Total Creatine Kinase C-Reactive Protein 3.30 H Albumin Urine WBC (Auto) Urine Creatinine 436.1 H Urine Total Protein 140 H 08/20/17 08/20/17 08/20/17 04:04 04:04 05:18 WBC 26.5 H Hgb RDW Lymph % (Auto) [place] % (Auto) Lymph # [place] # Seg Neutrophils % Seg Neuts % (Manual) Lymphocytes % (Manual) 12.0 L Nucleated RBC % Seg Neutrophils # Seg Neutrophils # Man 15.9 H Monocytes # (Manual) 1.3 H D-Dimer POC ABG pH 7.263 L POC ABG pCO2 48.7 H POC ABG pO2 Sodium Potassium 6.1 H* D Chloride Carbon Dioxide 20 L BUN 44 H Creatinine 4.3 H Glucose 111 H POC Glucose Uric Acid Calcium Phosphorus 7.30 H D Magnesium Lactate Dehydrogenase Total Creatine Kinase C-Reactive Protein Albumin Urine WBC (Auto) Urine Creatinine Urine Total Protein 08/20/17 08/20/17 08/20/17 08:51 10:02 10:34 WBC Hgb RDW Lymph % (Auto) [place] % (Auto) Lymph # [place] # Seg Neutrophils % Seg Neuts % (Manual) Lymphocytes % (Manual) Nucleated RBC % Seg Neutrophils # Seg Neutrophils # Man Monocytes # (Manual) D-Dimer POC ABG pH 7.232 L POC ABG pCO2 54.1 H POC ABG pO2 75 L Sodium Potassium Chloride Carbon Dioxide BUN 52 H Creatinine 4.5 H Glucose 118 H POC Glucose 110 H Uric Acid Calcium 8.2 L Phosphorus Magnesium Lactate Dehydrogenase Total Creatine Kinase C-Reactive Protein Albumin Urine WBC (Auto) Urine Creatinine Urine Total Protein 08/20/17 08/20/17 08/20/17 10:34 22:12 23:49 WBC Hgb RDW Lymph % (Auto) [place] % (Auto) Lymph # [place] # Seg Neutrophils % Seg Neuts % (Manual) Lymphocytes % (Manual) Nucleated RBC % Seg Neutrophils # Seg Neutrophils # Man Monocytes # (Manual) D-Dimer POC ABG pH 7.314 L POC ABG pCO2 45.8 H POC ABG pO2 114 H Sodium Potassium Chloride Carbon Dioxide BUN Creatinine Glucose POC Glucose 119 H Uric Acid 9.7 H Calcium Phosphorus Magnesium Lactate Dehydrogenase 250 H Total Creatine Kinase 623 H C-Reactive Protein Albumin Urine WBC (Auto) Urine Creatinine Urine Total Protein 08/21/17 08/21/17 08/21/17 04:57 05:55 06:25 WBC 14.2 H Hgb 11.7 L RDW Lymph % (Auto) [place] % (Auto) Lymph # [place] # Seg Neutrophils % Seg Neuts % (Manual) Lymphocytes % (Manual) 10.0 L Nucleated RBC % Seg Neutrophils # Seg Neutrophils # Man 8.8 H Monocytes # (Manual) D-Dimer POC ABG pH 7.321 L POC ABG pCO2 46.8 H POC ABG pO2 115 H Sodium Potassium Chloride Carbon Dioxide BUN Creatinine Glucose POC Glucose 134 H Uric Acid Calcium Phosphorus Magnesium Lactate Dehydrogenase Total Creatine Kinase C-Reactive Protein Albumin Urine WBC (Auto) Urine Creatinine Urine Total Protein 08/21/17 08/21/17 08/21/17 06:25 06:34 10:29 WBC Hgb RDW Lymph % (Auto) [place] % (Auto) Lymph # [place] # Seg Neutrophils % Seg Neuts % (Manual) Lymphocytes % (Manual) Nucleated RBC % Seg Neutrophils # Seg Neutrophils # Man Monocytes # (Manual) D-Dimer POC ABG pH POC ABG pCO2 POC ABG pO2 Sodium 147 H Potassium Chloride 110.3 H Carbon Dioxide BUN 69 H Creatinine 4.1 H Glucose 115 H POC Glucose Uric Acid Calcium 8.0 L Phosphorus 5.00 H D Magnesium 2.60 H Lactate Dehydrogenase Total Creatine Kinase C-Reactive Protein Albumin Urine WBC (Auto) Urine Creatinine Urine Total Protein 08/21/17 08/21/17 08/22/17 11:41 17:03 04:54 WBC Hgb RDW Lymph % (Auto) [place] % (Auto) Lymph # [place] # Seg Neutrophils % Seg Neuts % (Manual) Lymphocytes % (Manual) Nucleated RBC % Seg Neutrophils # Seg Neutrophils # Man Monocytes # (Manual) D-Dimer POC ABG pH 7.301 L POC ABG pCO2 55.6 H POC ABG pO2 Sodium Potassium Chloride Carbon Dioxide BUN Creatinine Glucose POC Glucose 128 H 115 H Uric Acid Calcium Phosphorus Magnesium Lactate Dehydrogenase Total Creatine Kinase C-Reactive Protein Albumin Urine WBC (Auto) Urine Creatinine Urine Total Protein 08/22/17 08/22/17 08/22/17 05:10 05:27 05:27 WBC 17.5 H Hgb RDW 15.3 H Lymph % (Auto) [place] % (Auto) Lymph # [place] # Seg Neutrophils % Seg Neuts % (Manual) 71.0 H Lymphocytes % (Manual) 11.0 L Nucleated RBC % Seg Neutrophils # Seg Neutrophils # Man 12.4 H Monocytes # (Manual) D-Dimer POC ABG pH POC ABG pCO2 POC ABG pO2 Sodium 149 H Potassium 5.1 H Chloride 113.1 H Carbon Dioxide BUN 79 H Creatinine 3.8 H Glucose 124 H POC Glucose 127 H Uric Acid Calcium 7.9 L Phosphorus 5.90 H Magnesium Lactate Dehydrogenase Total Creatine Kinase C-Reactive Protein Albumin Urine WBC (Auto) Urine Creatinine Urine Total Protein 08/22/17 08/22/17 08/22/17 12:21 16:53 17:40 WBC Hgb RDW Lymph % (Auto) [place] % (Auto) Lymph # [place] # Seg Neutrophils % Seg Neuts % (Manual) Lymphocytes % (Manual) Nucleated RBC % Seg Neutrophils # Seg Neutrophils # Man Monocytes # (Manual) D-Dimer POC ABG pH 7.298 L POC ABG pCO2 51.3 H POC ABG pO2 Sodium Potassium Chloride Carbon Dioxide BUN Creatinine Glucose POC Glucose 115 H 109 H Uric Acid Calcium Phosphorus Magnesium Lactate Dehydrogenase Total Creatine Kinase C-Reactive Protein Albumin Urine WBC (Auto) Urine Creatinine Urine Total Protein 08/23/17 08/23/17 08/23/17 01:22 04:22 04:22 WBC 16.8 H Hgb RDW Lymph % (Auto) [place] % (Auto) Lymph # [place] # Seg Neutrophils % Seg Neuts % (Manual) 92.0 H Lymphocytes % (Manual) 7.0 L Nucleated RBC % 1.0 H Seg Neutrophils # Seg Neutrophils # Man 15.5 H Monocytes # (Manual) D-Dimer POC ABG pH POC ABG pCO2 POC ABG pO2 Sodium 148 H Potassium Chloride 110.9 H Carbon Dioxide 21 L BUN 85 H Creatinine 3.6 H Glucose 148 H POC Glucose 147 H Uric Acid Calcium Phosphorus Magnesium Lactate Dehydrogenase Total Creatine Kinase C-Reactive Protein Albumin Urine WBC (Auto) Urine Creatinine Urine Total Protein 08/23/17 08/23/17 08/23/17 04:22 05:07 11:36 WBC Hgb RDW Lymph % (Auto) [place] % (Auto) Lymph # [place] # Seg Neutrophils % Seg Neuts % (Manual) Lymphocytes % (Manual) Nucleated RBC % Seg Neutrophils # Seg Neutrophils # Man Monocytes # (Manual) D-Dimer POC ABG pH POC ABG pCO2 POC ABG pO2 Sodium Potassium Chloride Carbon Dioxide BUN Creatinine Glucose POC Glucose 134 H 124 H Uric Acid Calcium Phosphorus Magnesium 3.40 H Lactate Dehydrogenase Total Creatine Kinase C-Reactive Protein Albumin Urine WBC (Auto) Urine Creatinine Urine Total Protein 08/23/17 08/24/17 08/24/17 23:18 03:24 05:09 WBC Hgb RDW Lymph % (Auto) [place] % (Auto) Lymph # [place] # Seg Neutrophils % Seg Neuts % (Manual) Lymphocytes % (Manual) Nucleated RBC % Seg Neutrophils # Seg Neutrophils # Man Monocytes # (Manual) D-Dimer POC ABG pH 7.461 H POC ABG pCO2 POC ABG pO2 Sodium Potassium Chloride Carbon Dioxide BUN Creatinine Glucose POC Glucose 133 H 122 H Uric Acid Calcium Phosphorus Magnesium Lactate Dehydrogenase Total Creatine Kinase C-Reactive Protein Albumin Urine WBC (Auto) Urine Creatinine Urine Total Protein 08/24/17 08/24/17 06:42 06:42 WBC 15.9 H Hgb RDW Lymph % (Auto) 4.6 L [place] % (Auto) 7.6 H Lymph # 0.7 L [place] # 1.2 H Seg Neutrophils % 87.7 H Seg Neuts % (Manual) Lymphocytes % (Manual) Nucleated RBC % Seg Neutrophils # 13.9 H Seg Neutrophils # Man Monocytes # (Manual) D-Dimer POC ABG pH POC ABG pCO2 POC ABG pO2 Sodium 152 H Potassium Chloride 114.4 H Carbon Dioxide BUN 85 H Creatinine 2.9 H Glucose 123 H POC Glucose Uric Acid Calcium Phosphorus Magnesium Lactate Dehydrogenase Total Creatine Kinase C-Reactive Protein Albumin Urine WBC (Auto) Urine Creatinine Urine Total Protein Chest x-ray: image reviewed
[2017-08-24] MEDS: APRESOLINE IV PRN (15:04)
[2017-08-24] MEDS: ATIVAN IV PRN ×2 (15:48→22:27)
[2017-08-24 16:02] LABS: ISTAT Base Excess 2; ISTAT HCO3 26.2; ISTAT PCO2 40.6 (35-45); ISTAT PH 7.417 (7.35-7.45); ISTAT PO2 114 (80-105); ISTAT SO2 99; ISTAT TCO2 27
--- NOTE | 2017-08-24 18:15 | Progress Note ---
Assessment and Plan Assessment and plan: 47-year-old man who was admitted for asthma exacerbation, who decompensated and had to be intubated Acute hypoxic resp faillure due to asthma exacerbation, on mechanical ventilator less than 96 hours. He is still intubated on ventilator. Pulmonology following. on FiO2 of 40% Continue CPAP trials, continue to attempt to wean daily Asthma exacerbation. On solumedrol, levaquin, Duoneb Hyperkalemia. Received Kayexalate, now improved Sepsis/pneumonitis: Continue antibiotics Acute Kidney Injury due to Acute tubular necrosis. Renal Function is now improving, Creatinine 3.8 today. Continue Strict I/O. Nephrology following. Case discussed with consultants and family at the bedside DVT prophylaxis with Lovenox. Full code status The high probability of a clinically significant, sudden or life threatening deterioration of the [respiratory] system(s) required my full and direct attention, intervention and personal management. The aggregate critical care time was [33] minutes. This time is in addition to time spent performing reported procedures but includes the following: [] Data Review and interpretation [] Patient assessment and monitoring of vital signs [] Documentation [] Medication orders and management History Interval history: He has been tolerating CPAP trials, had some episodes of agitation, for which he received IV pushes sedation Hospitalist Physical - Physical exam Narrative exam: General.: Appears well, no distress, nontoxic HEENT: Moist mucous membranes, extraocular muscles intact, no lymphadenopathy Neck: supple Cardiac: S1-S2 heard Lungs: Ventilated breath sounds Abdomen: soft , nontender, nondistended, bowel sounds positive Extremities: no edema clubbing or cyanosis Skin: no rash or lesions Neurologic: Intubated and sedated - Constitutional Vitals: Temp Pulse Resp BP Pulse Ox 97.7 F 71 20 128/69 93 08/24/17 12:00 08/24/17 18:00 08/24/17 18:00 08/24/17 18:00 08/24/17 18:00 General appearance: Present: no acute distress Results - Labs CBC & Chem 7: 08/25/17 06:43 08/25/17 06:43 Labs: Laboratory Last Values WBC 15.9 K/mm3 (4.5-11.0) H 08/24/17 06:42 RBC 4.74 M/mm3 (3.65-5.03) 08/24/17 06:42 Hgb 13.6 gm/dl (11.8-15.2) 08/24/17 06:42 Hct 40.2 % (35.5-45.6) 08/24/17 06:42 MCV 85 fl (84-94) 08/24/17 06:42 MCH 29 pg (28-32) 08/24/17 06:42 MCHC 34 % (32-34) 08/24/17 06:42 RDW 14.7 % (13.2-15.2) 08/24/17 06:42 Plt Count 238 K/mm3 (140-440) 08/24/17 06:42 Lymph % (Auto) 4.6 % (13.4-35.0) L 08/24/17 06:42 [place] % (Auto) 7.6 % (0.0-7.3) H 08/24/17 06:42 Eos % (Auto) 0.0 % (0.0-4.3) 08/24/17 06:42 Baso % (Auto) 0.1 % (0.0-1.8) 08/24/17 06:42 Lymph # 0.7 K/mm3 (1.2-5.4) L 08/24/17 06:42 [place] # 1.2 K/mm3 (0.0-0.8) H 08/24/17 06:42 Eos # 0.0 K/mm3 (0.0-0.4) 08/24/17 06:42 Baso # 0.0 K/mm3 (0.0-0.1) 08/24/17 06:42 Add Manual Diff Complete 08/23/17 04:22 Total Counted 100 08/23/17 04:22 Seg Neutrophils % 87.7 % (40.0-70.0) H 08/24/17 06:42 Seg Neuts % (Manual) 92.0 % (40.0-70.0) H 08/23/17 04:22 Band Neutrophils % 0 % 08/23/17 04:22 Lymphocytes % (Manual) 7.0 % (13.4-35.0) L 08/23/17 04:22 Reactive Lymphs % (Man) 1.0 % 08/23/17 04:22 Monocytes % (Manual) 0 % (0.0-7.3) 08/23/17 04:22 Eosinophils % (Manual) 0 % (0.0-4.3) 08/23/17 04:22 Basophils % (Manual) 0 % (0.0-1.8) 08/23/17 04:22 Metamyelocytes % 0 % 08/23/17 04:22 Myelocytes % 0 % 08/23/17 04:22 Promyelocytes % 0 % 08/23/17 04:22 Blast Cells % 0 % 08/23/17 04:22 Nucleated RBC % 1.0 % (0.0-0.9) H 08/23/17 04:22 Seg Neutrophils # 13.9 K/mm3 (1.8-7.7) H 08/24/17 06:42 Seg Neutrophils # Man 15.5 K/mm3 (1.8-7.7) H 08/23/17 04:22 Band Neutrophils # 0.0 K/mm3 08/23/17 04:22 Lymphocytes # (Manual) 1.2 K/mm3 (1.2-5.4) 08/23/17 04:22 Abs React Lymphs (Man) 0.2 K/mm3 08/23/17 04:22 Monocytes # (Manual) 0.0 K/mm3 (0.0-0.8) 08/23/17 04:22 Eosinophils # (Manual) 0.0 K/mm3 (0.0-0.4) 08/23/17 04:22 Basophils # (Manual) 0.0 K/mm3 (0.0-0.1) 08/23/17 04:22 Metamyelocytes # 0.0 K/mm3 08/23/17 04:22 Myelocytes # 0.0 K/mm3 08/23/17 04:22 Promyelocytes # 0.0 K/mm3 08/23/17 04:22 Blast Cells # 0.0 K/mm3 08/23/17 04:22 WBC Morphology Not Reportable 08/23/17 04:22 Hypersegmented Neuts Not Reportable 08/23/17 04:22 Hyposegmented Neuts Not Reportable 08/23/17 04:22 Hypogranular Neuts Not Reportable 08/23/17 04:22 Smudge Cells Not Reportable 08/23/17 04:22 Toxic Granulation Not Reportable 08/23/17 04:22 Toxic Vacuolation Not Reportable 08/23/17 04:22 Dohle Bodies Not Reportable 08/23/17 04:22 Pelger-Huet Anomaly Not Reportable 08/23/17 04:22 Merry Rods Not Reportable 08/23/17 04:22 Platelet Estimate Consistent w auto 08/23/17 04:22 Clumped Platelets Not Reportable 08/23/17 04:22 Plt Clumps, EDTA Not Reportable 08/23/17 04:22 Large Platelets Not Reportable 08/23/17 04:22 Giant Platelets Not Reportable 08/23/17 04:22 Platelet Satelliting Not Reportable 08/23/17 04:22 Plt Morphology Comment Not Reportable 08/23/17 04:22 RBC Morphology Not Reportable 08/23/17 04:22 Dimorphic RBCs Not Reportable 08/23/17 04:22 Polychromasia Not Reportable 08/23/17 04:22 Hypochromasia Not Reportable 08/23/17 04:22 Poikilocytosis Not Reportable 08/23/17 04:22 Anisocytosis Not Reportable 08/23/17 04:22 Microcytosis Not Reportable 08/23/17 04:22 Macrocytosis Not Reportable 08/23/17 04:22 Spherocytes Not Reportable 08/23/17 04:22 Pappenheimer Bodies Not Reportable 08/23/17 04:22 Sickle Cells Not Reportable 08/23/17 04:22 Target Cells Not Reportable 08/23/17 04:22 Tear Drop Cells Not Reportable 08/23/17 04:22 Ovalocytes Not Reportable 08/23/17 04:22 Helmet Cells Not Reportable 08/23/17 04:22 [place] Bodies Not Reportable 08/23/17 04:22 [place] Rings Not Reportable 08/23/17 04:22 [place] Cells Not Reportable 08/23/17 04:22 Bite Cells Not Reportable 08/23/17 04:22 Crenated Cell Not Reportable 08/23/17 04:22 Elliptocytes Not Reportable 08/23/17 04:22 Acanthocytes (Spur) Not Reportable 08/23/17 04:22 Rouleaux Not Reportable 08/23/17 04:22 Hemoglobin C Crystals Not Reportable 08/23/17 04:22 Schistocytes Not Reportable 08/23/17 04:22 Malaria parasites Not Reportable 08/23/17 04:22 [place] Bodies Not Reportable 08/23/17 04:22 Haptoglobin 208 mg/dL (43-212) 08/20/17 10:34 Hem Pathologist Commnt No 08/23/17 04:22 D-Dimer 698.53 ng/mlDDU (0-234) H 08/19/17 15:03 POC ABG pH 7.417 (7.35-7.45) 08/24/17 15:51 POC ABG pCO2 40.6 (35-45) 08/24/17 15:51 POC ABG pO2 114 (80-105) H 08/24/17 15:51 POC ABG HCO3 26.2 08/24/17 15:51 POC ABG Total CO2 27 08/24/17 15:51 POC ABG O2 Sat 99 08/24/17 15:51 POC ABG Base Excess 2 08/24/17 15:51 FiO2 40 % 08/24/17 15:51 Sodium 152 mmol/L (137-145) H 08/24/17 06:42 Potassium 4.2 mmol/L (3.6-5.0) 08/24/17 06:42 Chloride 114.4 mmol/L (98-107) H 08/24/17 06:42 Carbon Dioxide 26 mmol/L (22-30) 08/24/17 06:42 Anion Gap 16 mmol/L 08/24/17 06:42 BUN 85 mg/dL (9-20) H 08/24/17 06:42 Creatinine 2.9 mg/dL (0.8-1.5) H 08/24/17 06:42 Estimated GFR 28 ml/min 08/24/17 06:42 BUN/Creatinine Ratio 29.31 % 08/24/17 06:42 Glucose 123 mg/dL (75-100) H 08/24/17 06:42 POC Glucose 122 (70-105) H 08/24/17 05:09 Osmolality 319 Mosm/kg 08/20/17 04:04 Lactic Acid 1.10 mmol/L (0.7-2.0) 08/21/17 06:25 Uric Acid 9.7 mg/dL (3.5-7.6) H 08/20/17 10:34 Calcium 8.8 mg/dL (8.4-10.2) 08/24/17 06:42 Phosphorus 3.60 mg/dL (2.5-4.5) 08/24/17 06:42 Magnesium 3.40 mg/dL (1.7-2.3) H 08/23/17 04:22 Total Bilirubin 0.30 mg/dL (0.1-1.2) 08/20/17 04:04 AST 30 units/L (5-40) 08/20/17 04:04 ALT 19 units/L (7-56) 08/20/17 04:04 Alkaline Phosphatase 67 units/L (35-129) 08/20/17 04:04 Lactate Dehydrogenase 250 units/L (91-180) H 08/20/17 10:34 Total Creatine Kinase 623 units/L (55-170) H 08/20/17 10:34 Troponin T < 0.010 ng/mL (0.00-0.029) 08/18/17 08:32 C-Reactive Protein 3.30 mg/dL (0.00-1.30) H 08/19/17 18:43 NT-Pro-B Natriuret Pep 18.05 pg/mL (0-450) 08/18/17 08:32 Total Protein 7.2 g/dL (6.3-8.2) 08/20/17 04:04 Albumin 4.1 g/dL (3.9-5) 08/20/17 04:04 Albumin/Globulin Ratio 1.3 % 08/20/17 04:04 Urine Color Yellow (Yellow) 08/18/17 17:26 Urine Turbidity Clear (Clear) 08/18/17 17:26 Urine pH 5.0 (5.0-7.0) 08/18/17 17:26 Ur Specific [place] 1.026 (1.003-1.030) 08/18/17 17:26 Urine Protein >500 mg/dL (Negative) 08/18/17 17:26 Urine Glucose (UA) 50 mg/dL (Negative) 08/18/17 17:26 Urine Ketones Tr mg/dL (Negative) 08/18/17 17:26 Urine Blood Sm (Negative) 08/18/17 17:26 Urine Nitrite Neg (Negative) 08/18/17 17:26 Urine Bilirubin Neg (Negative) 08/18/17 17:26 Urine Urobilinogen < 2.0 mg/dL (<2.0) 08/18/17 17:26 Ur Leukocyte Esterase Neg (Negative) 08/18/17 17:26 Urine WBC (Auto) 9.0 /HPF (0.0-6.0) H 08/18/17 17:26 Urine RBC (Auto) 5.0 /HPF (0.0-6.0) 08/18/17 17:26 U Epithel Cells (Auto) < 1.0 /HPF (0-13.0) 08/18/17 17:26 Urine Mucus Few /HPF 08/18/17 17:26 Urine Eosinophils None seen (None Seen) 08/19/17 13:40 Urine Osmolality 542 Mosm/kg 08/19/17 13:40 Urine Creatinine 436.1 mg/dL (0.1-20.0) H 08/19/17 13:40 Protein/Creatinin Ratio 0.33 08/19/17 13:40 Urine Sodium 29 mEq/L 08/19/17 13:40 Urine Total Protein 140 mg/dL (5-11.8) H 08/19/17 13:40 Complement C3 136 mg/dL (90-180) 08/21/17 10:29 Complement C4 32 mg/dL (16-47) 08/21/17 10:29 Hep Bs Antigen Non-reactive (Negative) 08/21/17 10:29 Hepatitis C Antibody Non-reactive (NonReactive) 08/21/17 10:29
[2017-08-25] MEDS: ATIVAN IV PRN (03:45)
[2017-08-25] MEDS: DUONEB *Not for PRN Use IH SCH ×4 (05:40→20:27)
[2017-08-25] MEDS: LOPRESSOR PO SCH ×3 (05:46→22:00)
[2017-08-25 07:16] LABS: Basophils % (Auto) 0.2 % (0.0-1.8); Hematocrit 40.2 % (35.5-45.6); Hemoglobin 13.3 gm/dl (11.8-15.2); Mean Corpuscular HGB Conc 33 % (32-34); Mean Corpuscular Hemoglobin 29 pg (28-32); Mean Corpuscular Volume 86 fl (84-94); Platelet Count 235 K/mm3 (140-440); Red Blood Count 4.67 M/mm3 (3.65-5.03); White Blood Count 19.1 K/mm3 (4.5-11.0)
[2017-08-25 07:27] LABS: Calcium 8.6 mg/dL (8.4-10.2); Chloride 114.1 mmol/L (98-107); Phosphorous 4.5 mg/dL (2.5-4.5); Potassium 4.6 mmol/L (3.6-5.0)
[2017-08-25] MEDS: RENVELA PO SCH ×3 (08:23→21:28)
--- NOTE | 2017-08-25 10:18 | Progress Note ---
Assessment and Plan (1) Acute respiratory failure with hypoxia Current Visit: Yes Status: Acute Plan to address problem: Intubated on vent support (2) Acute renal failure due to tubular necrosis Current Visit: Yes Status: Acute Plan to address problem: Renal function reviewed. Cr and BUN cont to improve, good UOP will give lasix 40 mg IV x1 today Hypernatremia- cont free water flushes to 350 ml every 4 hours, will adjust as needed Obtain daily weights Renally dose medications Avoid Nephrotoxic agents (3) SIRS (systemic inflammatory response syndrome) Current Visit: Yes Status: Acute Plan to address problem: On IV Solumedrol. (4) Hyperphosphatemia Current Visit: Yes Status: Acute Plan to address problem: Controlled on Renvela will decrease to 1 tab 800 mg TID Subjective Date of service: 08/25/17 Principal diagnosis: Acute Hypoxemic Respiratory Failure; GUZMAN; Morbid Obesity Interval history: intubated, family at bedside, all questions answered Objective - Vital Signs Vital signs: Vital Signs - 12hr 08/24/17 08/24/17 08/24/17 22:24 22:25 22:30 Temperature Pulse Rate 83 81 Pulse Rate [ 110 H Bilateral Lower Lobe] Pulse Rate [ From Monitor] Respiratory 20 Rate Respiratory 25 H Rate [Bilateral Lower Lobe] Blood Pressure 163/99 163/99 O2 Sat by Pulse 94 93 Oximetry 08/24/17 08/24/17 08/24/17 22:39 23:00 23:30 Temperature Pulse Rate 69 67 Pulse Rate [ 107 H Bilateral Lower Lobe] Pulse Rate [ From Monitor] Respiratory 21 20 Rate Respiratory 25 H Rate [Bilateral Lower Lobe] Blood Pressure 141/82 139/81 O2 Sat by Pulse 91 92 Oximetry 08/25/17 08/25/17 08/25/17 00:00 00:30 01:00 Temperature 98.4 F Pulse Rate 63 68 65 Pulse Rate [ Bilateral Lower Lobe] Pulse Rate [ 71 From Monitor] Respiratory 14 16 20 Rate Respiratory Rate [Bilateral Lower Lobe] Blood Pressure 128/74 141/88 143/86 O2 Sat by Pulse 98 96 94 Oximetry 08/25/17 08/25/17 08/25/17 01:30 02:00 02:30 Temperature Pulse Rate 64 64 66 Pulse Rate [ 69 Bilateral Lower Lobe] Pulse Rate [ From Monitor] Respiratory 20 20 20 Rate Respiratory 26 H Rate [Bilateral Lower Lobe] Blood Pressure 138/90 138/90 135/85 O2 Sat by Pulse 96 98 93 Oximetry 08/25/17 08/25/17 08/25/17 03:00 03:30 04:00 Temperature 98.9 F Pulse Rate 61 59 L 89 Pulse Rate [ Bilateral Lower Lobe] Pulse Rate [ 69 From Monitor] Respiratory 20 20 21 Rate Respiratory Rate [Bilateral Lower Lobe] Blood Pressure 129/78 132/78 129/78 O2 Sat by Pulse 92 93 93 Oximetry 08/25/17 08/25/17 08/25/17 04:30 05:00 05:30 Temperature Pulse Rate 75 68 66 Pulse Rate [ Bilateral Lower Lobe] Pulse Rate [ From Monitor] Respiratory 20 20 20 Rate Respiratory Rate [Bilateral Lower Lobe] Blood Pressure 136/83 125/75 127/73 O2 Sat by Pulse 91 93 91 Oximetry 08/25/17 08/25/17 08/25/17 05:40 05:46 05:59 Temperature Pulse Rate 67 76 Pulse Rate [ 67 Bilateral Lower Lobe] Pulse Rate [ From Monitor] Respiratory Rate Respiratory 25 H Rate [Bilateral Lower Lobe] Blood Pressure 127/73 127/73 O2 Sat by Pulse 98 Oximetry 08/25/17 08/25/17 08/25/17 06:00 06:30 07:00 Temperature Pulse Rate 67 66 69 Pulse Rate [ Bilateral Lower Lobe] Pulse Rate [ From Monitor] Respiratory 20 20 19 Rate Respiratory Rate [Bilateral Lower Lobe] Blood Pressure 124/74 118/72 142/86 O2 Sat by Pulse 93 92 100 Oximetry 08/25/17 08/25/17 08/25/17 07:30 07:54 08:00 Temperature 98.1 F Pulse Rate 62 61 Pulse Rate [ Bilateral Lower Lobe] Pulse Rate [ From Monitor] Respiratory 20 20 Rate Respiratory Rate [Bilateral Lower Lobe] Blood Pressure 129/72 129/72 O2 Sat by Pulse 95 98 Oximetry 08/25/17 08/25/17 08/25/17 08:30 09:00 09:30 Temperature Pulse Rate 67 62 62 Pulse Rate [ Bilateral Lower Lobe] Pulse Rate [ From Monitor] Respiratory 20 20 21 Rate Respiratory Rate [Bilateral Lower Lobe] Blood Pressure 140/82 138/78 140/91 O2 Sat by Pulse 91 94 97 Oximetry - General Appearance General appearance: intubated EENT: ATNC, PERRL, mucous membranes dry Neck: no JVD, no carotid bruit Respiratory: Present: Clear to Ascultation. Absent: Rales, Ronchi Cardiology: regular, S1S2 Gastrointestinal: normoactive bowel sounds, no tenderness, no distended, obese Integumentary: no rash, warm and dry Neurologic: other (intubated) Musculoskeletal: other (1+ pitting edema in BLE) Psychiatric: other (intubated ) - Lab 08/25/17 06:43 08/25/17 06:43 Most recent lab results Calcium 8.6 mg/dL (8.4-10.2) 08/25/17 06:43 Phosphorus 4.50 mg/dL (2.5-4.5) D 08/25/17 06:43 Magnesium 3.20 mg/dL (1.7-2.3) H 08/25/17 06:43 Urine Creatinine 436.1 mg/dL (0.1-20.0) H 08/19/17 13:40 Urine Sodium 29 mEq/L 08/19/17 13:40 Urine Total Protein 140 mg/dL (5-11.8) H 08/19/17 13:40
[2017-08-25] MEDS: BROVANA NEBU IH SCH ×2 (10:50→20:27)
[2017-08-25] MEDS: LOVENOX SUB-Q SCH (10:58)
[2017-08-25] MEDS: PEPCID PO SCH (10:59)
[2017-08-25] MEDS: APRESOLINE PO SCH ×2 (10:59→22:00)
--- NOTE | 2017-08-25 11:10 | Progress Note ---
Assessment and Plan (1) Acute respiratory failure with hypoxia Current Visit: Yes Status: Acute Plan to address problem: - remains on MVS - continue to wean oxygen for sats >/= 94% - increased TV to 550 mls re: hypercapnia - continue daily sedation vacations and lighten sedation - daily PT/OT/ROM exercises - continue bronchodilators and pulmonary toilet - continue aspiration precautions / Address VAP bundle daily - reduced Psupp to [id number] - ABG after 2 hours - stop seroquel and hold ativan - trial of extubation later today or in am if passes SBT and mental status improved (2) Hypertensive emergency Current Visit: Yes Status: Acute Plan to address problem: - off cardene drip now - continue to titrate oral hypertensives - added metoprolol and hydralazine (3) GUZMAN (acute kidney injury) Current Visit: Yes Status: Acute Plan to address problem: - hyperkalemia corrected - improving urine output - nephrology evaluation ongoing - no indication for HD/UF at this point - serum creatinine also improving (4) Obesity, morbid Current Visit: Yes Status: Acute Plan to address problem: - weight loss counselled earlier - outpatient sleep clinic evaluation advised (5) SIRS (systemic inflammatory response syndrome) Current Visit: Yes Status: Acute Plan to address problem: - improved - continue empiric AB's and follow cultures - continue to treat azotemia - prn analgesia (6) Leucocytosis Current Visit: Yes Status: Acute Qualifiers: Leukocytosis type: L Plan to address problem: - WBC noted - suspect steroid + stress demarginalization - CRP & Lactate unremarkable (ordered today) - off AB's and cultures negative (7) Discharge planning issues Current Visit: Yes Status: Acute Plan to address problem: - he remains critically ill on life sustaining interventions including MVS and at risk for further deterioration including ...30' CCT today Subjective Date of service: 08/25/17 Principal diagnosis: Acute Hypoxemic Respiratory Failure; GUZMAN; Morbid Obesity Interval history: Seen and examined at bedside; 24 hour events reviewed; nursing and respiratory care staff consulted; no adverse overnight events reported to me; remains lethargic (? some munchausen's syndrome at play); denies acute chest pains or increased SOB Objective Vital Signs - 12hr 08/24/17 08/25/17 08/25/17 23:30 00:00 00:30 Temperature 98.4 F Pulse Rate 67 63 68 Pulse Rate [ Bilateral Lower Lobe] Pulse Rate [ 71 From Monitor] Respiratory 20 14 16 Rate Respiratory Rate [Bilateral Lower Lobe] Blood Pressure 139/81 128/74 141/88 O2 Sat by Pulse 92 98 96 Oximetry 08/25/17 08/25/17 08/25/17 01:00 01:30 02:00 Temperature Pulse Rate 65 64 64 Pulse Rate [ 69 Bilateral Lower Lobe] Pulse Rate [ From Monitor] Respiratory 20 20 20 Rate Respiratory 26 H Rate [Bilateral Lower Lobe] Blood Pressure 143/86 138/90 138/90 O2 Sat by Pulse 94 96 98 Oximetry 08/25/17 08/25/17 08/25/17 02:30 03:00 03:30 Temperature Pulse Rate 66 61 59 L Pulse Rate [ Bilateral Lower Lobe] Pulse Rate [ From Monitor] Respiratory 20 20 20 Rate Respiratory Rate [Bilateral Lower Lobe] Blood Pressure 135/85 129/78 132/78 O2 Sat by Pulse 93 92 93 Oximetry 08/25/17 08/25/17 08/25/17 04:00 04:30 05:00 Temperature 98.9 F Pulse Rate 89 75 68 Pulse Rate [ Bilateral Lower Lobe] Pulse Rate [ 69 From Monitor] Respiratory 21 20 20 Rate Respiratory Rate [Bilateral Lower Lobe] Blood Pressure 129/78 136/83 125/75 O2 Sat by Pulse 93 91 93 Oximetry 08/25/17 08/25/17 08/25/17 05:30 05:40 05:46 Temperature Pulse Rate 66 67 76 Pulse Rate [ Bilateral Lower Lobe] Pulse Rate [ From Monitor] Respiratory 20 Rate Respiratory Rate [Bilateral Lower Lobe] Blood Pressure 127/73 127/73 127/73 O2 Sat by Pulse 91 98 Oximetry 08/25/17 08/25/17 08/25/17 05:59 06:00 06:30 Temperature Pulse Rate 67 66 Pulse Rate [ 67 Bilateral Lower Lobe] Pulse Rate [ From Monitor] Respiratory 20 20 Rate Respiratory 25 H Rate [Bilateral Lower Lobe] Blood Pressure 124/74 118/72 O2 Sat by Pulse 93 92 Oximetry 08/25/17 08/25/17 08/25/17 07:00 07:30 07:54 Temperature 98.1 F Pulse Rate 69 62 Pulse Rate [ Bilateral Lower Lobe] Pulse Rate [ From Monitor] Respiratory 19 20 Rate Respiratory Rate [Bilateral Lower Lobe] Blood Pressure 142/86 129/72 O2 Sat by Pulse 100 95 Oximetry 08/25/17 08/25/17 08/25/17 08:00 08:30 09:00 Temperature Pulse Rate 61 67 62 Pulse Rate [ Bilateral Lower Lobe] Pulse Rate [ From Monitor] Respiratory 20 20 20 Rate Respiratory Rate [Bilateral Lower Lobe] Blood Pressure 129/72 140/82 138/78 O2 Sat by Pulse 98 91 94 Oximetry 08/25/17 08/25/17 08/25/17 09:30 10:00 10:30 Temperature Pulse Rate 74 70 91 H Pulse Rate [ Bilateral Lower Lobe] Pulse Rate [ From Monitor] Respiratory 19 15 14 Rate Respiratory Rate [Bilateral Lower Lobe] Blood Pressure 140/91 140/85 158/96 O2 Sat by Pulse 97 96 95 Oximetry 08/25/17 11:00 Temperature Pulse Rate 74 Pulse Rate [ Bilateral Lower Lobe] Pulse Rate [ From Monitor] Respiratory 13 Rate Respiratory Rate [Bilateral Lower Lobe] Blood Pressure 142/90 O2 Sat by Pulse 94 Oximetry Constitutional: no acute distress, lethargic Eyes: non-icteric ENT: oropharynx moist Neck: supple, no lymphadenopathy, other (large neck circumfrence; possible ANGIE) Effort: mildly labored Ascultation: Bilateral: clear, diminished breath sounds, other (prolonged expiration) Cardiovascular: regular rate and rhythm Gastrointestinal: normoactive bowel sounds, soft, non-tender, non-distended Integumentary: normal Extremities: no cyanosis, no edema, pulses normal, no ischemia or petechiae Neurologic: normal mental status, non-focal exam, pupils equal and round, motor strength normal and Psychiatric: mood appropriate, affect normal CBC and BMP: 08/25/17 06:43 08/25/17 06:43 ABG, PT/INR, D-dimer: ABG POC ABG pH 7.417 (7.35-7.45) 08/24/17 15:51 POC ABG pCO2 40.6 (35-45) 08/24/17 15:51 POC ABG pO2 114 (80-105) H 08/24/17 15:51 POC ABG HCO3 26.2 08/24/17 15:51 POC ABG Total CO2 27 08/24/17 15:51 POC ABG O2 Sat 99 08/24/17 15:51 PT/INR, D-dimer D-Dimer 698.53 ng/mlDDU (0-234) H 08/19/17 15:03 Abnormal lab findings: Abnormal Labs 08/18/17 08/18/17 08/19/17 16:54 17:26 04:37 WBC 18.1 H Hgb RDW Lymph % (Auto) 6.1 L [place] % (Auto) Lymph # 1.1 L [place] # Seg Neutrophils % 89.7 H Seg Neuts % (Manual) Lymphocytes % (Manual) Nucleated RBC % Seg Neutrophils # 16.2 H Seg Neutrophils # Man Monocytes # (Manual) D-Dimer POC ABG pH 7.231 L POC ABG pCO2 63.3 H POC ABG pO2 Sodium Potassium Chloride Carbon Dioxide BUN Creatinine Glucose POC Glucose Uric Acid Calcium Phosphorus Magnesium Lactate Dehydrogenase Total Creatine Kinase C-Reactive Protein Albumin Urine WBC (Auto) 9.0 H Urine Creatinine Urine Total Protein 08/19/17 08/19/17 08/19/17 04:37 05:37 13:40 WBC Hgb RDW Lymph % (Auto) [place] % (Auto) Lymph # [place] # Seg Neutrophils % Seg Neuts % (Manual) Lymphocytes % (Manual) Nucleated RBC % Seg Neutrophils # Seg Neutrophils # Man Monocytes # (Manual) D-Dimer POC ABG pH 7.320 L POC ABG pCO2 POC ABG pO2 Sodium Potassium Chloride Carbon Dioxide BUN 22 H Creatinine 2.9 H D Glucose 124 H POC Glucose Uric Acid Calcium Phosphorus 1.00 L Magnesium Lactate Dehydrogenase Total Creatine Kinase C-Reactive Protein Albumin 3.5 L Urine WBC (Auto) Urine Creatinine 430.8 H Urine Total Protein 144 H 08/19/17 08/19/17 08/19/17 13:40 15:03 18:43 WBC Hgb RDW Lymph % (Auto) [place] % (Auto) Lymph # [place] # Seg Neutrophils % Seg Neuts % (Manual) Lymphocytes % (Manual) Nucleated RBC % Seg Neutrophils # Seg Neutrophils # Man Monocytes # (Manual) D-Dimer 698.53 H POC ABG pH POC ABG pCO2 POC ABG pO2 Sodium Potassium Chloride Carbon Dioxide BUN Creatinine Glucose POC Glucose Uric Acid Calcium Phosphorus Magnesium Lactate Dehydrogenase Total Creatine Kinase C-Reactive Protein 3.30 H Albumin Urine WBC (Auto) Urine Creatinine 436.1 H Urine Total Protein 140 H 08/20/17 08/20/17 08/20/17 04:04 04:04 05:18 WBC 26.5 H Hgb RDW Lymph % (Auto) [place] % (Auto) Lymph # [place] # Seg Neutrophils % Seg Neuts % (Manual) Lymphocytes % (Manual) 12.0 L Nucleated RBC % Seg Neutrophils # Seg Neutrophils # Man 15.9 H Monocytes # (Manual) 1.3 H D-Dimer POC ABG pH 7.263 L POC ABG pCO2 48.7 H POC ABG pO2 Sodium Potassium 6.1 H* D Chloride Carbon Dioxide 20 L BUN 44 H Creatinine 4.3 H Glucose 111 H POC Glucose Uric Acid Calcium Phosphorus 7.30 H D Magnesium Lactate Dehydrogenase Total Creatine Kinase C-Reactive Protein Albumin Urine WBC (Auto) Urine Creatinine Urine Total Protein 08/20/17 08/20/17 08/20/17 08:51 10:02 10:34 WBC Hgb RDW Lymph % (Auto) [place] % (Auto) Lymph # [place] # Seg Neutrophils % Seg Neuts % (Manual) Lymphocytes % (Manual) Nucleated RBC % Seg Neutrophils # Seg Neutrophils # Man Monocytes # (Manual) D-Dimer POC ABG pH 7.232 L POC ABG pCO2 54.1 H POC ABG pO2 75 L Sodium Potassium Chloride Carbon Dioxide BUN 52 H Creatinine 4.5 H Glucose 118 H POC Glucose 110 H Uric Acid Calcium 8.2 L Phosphorus Magnesium Lactate Dehydrogenase Total Creatine Kinase C-Reactive Protein Albumin Urine WBC (Auto) Urine Creatinine Urine Total Protein 08/20/17 08/20/17 08/20/17 10:34 22:12 23:49 WBC Hgb RDW Lymph % (Auto) [place] % (Auto) Lymph # [place] # Seg Neutrophils % Seg Neuts % (Manual) Lymphocytes % (Manual) Nucleated RBC % Seg Neutrophils # Seg Neutrophils # Man Monocytes # (Manual) D-Dimer POC ABG pH 7.314 L POC ABG pCO2 45.8 H POC ABG pO2 114 H Sodium Potassium Chloride Carbon Dioxide BUN Creatinine Glucose POC Glucose 119 H Uric Acid 9.7 H Calcium Phosphorus Magnesium Lactate Dehydrogenase 250 H Total Creatine Kinase 623 H C-Reactive Protein Albumin Urine WBC (Auto) Urine Creatinine Urine Total Protein 08/21/17 08/21/17 08/21/17 04:57 05:55 06:25 WBC 14.2 H Hgb 11.7 L RDW Lymph % (Auto) [place] % (Auto) Lymph # [place] # Seg Neutrophils % Seg Neuts % (Manual) Lymphocytes % (Manual) 10.0 L Nucleated RBC % Seg Neutrophils # Seg Neutrophils # Man 8.8 H Monocytes # (Manual) D-Dimer POC ABG pH 7.321 L POC ABG pCO2 46.8 H POC ABG pO2 115 H Sodium Potassium Chloride Carbon Dioxide BUN Creatinine Glucose POC Glucose 134 H Uric Acid Calcium Phosphorus Magnesium Lactate Dehydrogenase Total Creatine Kinase C-Reactive Protein Albumin Urine WBC (Auto) Urine Creatinine Urine Total Protein 08/21/17 08/21/17 08/21/17 06:25 06:34 10:29 WBC Hgb RDW Lymph % (Auto) [place] % (Auto) Lymph # [place] # Seg Neutrophils % Seg Neuts % (Manual) Lymphocytes % (Manual) Nucleated RBC % Seg Neutrophils # Seg Neutrophils # Man Monocytes # (Manual) D-Dimer POC ABG pH POC ABG pCO2 POC ABG pO2 Sodium 147 H Potassium Chloride 110.3 H Carbon Dioxide BUN 69 H Creatinine 4.1 H Glucose 115 H POC Glucose Uric Acid Calcium 8.0 L Phosphorus 5.00 H D Magnesium 2.60 H Lactate Dehydrogenase Total Creatine Kinase C-Reactive Protein Albumin Urine WBC (Auto) Urine Creatinine Urine Total Protein 08/21/17 08/21/17 08/22/17 11:41 17:03 04:54 WBC Hgb RDW Lymph % (Auto) [place] % (Auto) Lymph # [place] # Seg Neutrophils % Seg Neuts % (Manual) Lymphocytes % (Manual) Nucleated RBC % Seg Neutrophils # Seg Neutrophils # Man Monocytes # (Manual) D-Dimer POC ABG pH 7.301 L POC ABG pCO2 55.6 H POC ABG pO2 Sodium Potassium Chloride Carbon Dioxide BUN Creatinine Glucose POC Glucose 128 H 115 H Uric Acid Calcium Phosphorus Magnesium Lactate Dehydrogenase Total Creatine Kinase C-Reactive Protein Albumin Urine WBC (Auto) Urine Creatinine Urine Total Protein 08/22/17 08/22/17 08/22/17 05:10 05:27 05:27 WBC 17.5 H Hgb RDW 15.3 H Lymph % (Auto) [place] % (Auto) Lymph # [place] # Seg Neutrophils % Seg Neuts % (Manual) 71.0 H Lymphocytes % (Manual) 11.0 L Nucleated RBC % Seg Neutrophils # Seg Neutrophils # Man 12.4 H Monocytes # (Manual) D-Dimer POC ABG pH POC ABG pCO2 POC ABG pO2 Sodium 149 H Potassium 5.1 H Chloride 113.1 H Carbon Dioxide BUN 79 H Creatinine 3.8 H Glucose 124 H POC Glucose 127 H Uric Acid Calcium 7.9 L Phosphorus 5.90 H Magnesium Lactate Dehydrogenase Total Creatine Kinase C-Reactive Protein Albumin Urine WBC (Auto) Urine Creatinine Urine Total Protein 08/22/17 08/22/17 08/22/17 12:21 16:53 17:40 WBC Hgb RDW Lymph % (Auto) [place] % (Auto) Lymph # [place] # Seg Neutrophils % Seg Neuts % (Manual) Lymphocytes % (Manual) Nucleated RBC % Seg Neutrophils # Seg Neutrophils # Man Monocytes # (Manual) D-Dimer POC ABG pH 7.298 L POC ABG pCO2 51.3 H POC ABG pO2 Sodium Potassium Chloride Carbon Dioxide BUN Creatinine Glucose POC Glucose 115 H 109 H Uric Acid Calcium Phosphorus Magnesium Lactate Dehydrogenase Total Creatine Kinase C-Reactive Protein Albumin Urine WBC (Auto) Urine Creatinine Urine Total Protein 08/23/17 08/23/17 08/23/17 01:22 04:22 04:22 WBC 16.8 H Hgb RDW Lymph % (Auto) [place] % (Auto) Lymph # [place] # Seg Neutrophils % Seg Neuts % (Manual) 92.0 H Lymphocytes % (Manual) 7.0 L Nucleated RBC % 1.0 H Seg Neutrophils # Seg Neutrophils # Man 15.5 H Monocytes # (Manual) D-Dimer POC ABG pH POC ABG pCO2 POC ABG pO2 Sodium 148 H Potassium Chloride 110.9 H Carbon Dioxide 21 L BUN 85 H Creatinine 3.6 H Glucose 148 H POC Glucose 147 H Uric Acid Calcium Phosphorus Magnesium Lactate Dehydrogenase Total Creatine Kinase C-Reactive Protein Albumin Urine WBC (Auto) Urine Creatinine Urine Total Protein 08/23/17 08/23/17 08/23/17 04:22 05:07 11:36 WBC Hgb RDW Lymph % (Auto) [place] % (Auto) Lymph # [place] # Seg Neutrophils % Seg Neuts % (Manual) Lymphocytes % (Manual) Nucleated RBC % Seg Neutrophils # Seg Neutrophils # Man Monocytes # (Manual) D-Dimer POC ABG pH POC ABG pCO2 POC ABG pO2 Sodium Potassium Chloride Carbon Dioxide BUN Creatinine Glucose POC Glucose 134 H 124 H Uric Acid Calcium Phosphorus Magnesium 3.40 H Lactate Dehydrogenase Total Creatine Kinase C-Reactive Protein Albumin Urine WBC (Auto) Urine Creatinine Urine Total Protein 08/23/17 08/23/17 08/24/17 17:20 23:18 03:24 WBC Hgb RDW Lymph % (Auto) [place] % (Auto) Lymph # [place] # Seg Neutrophils % Seg Neuts % (Manual) Lymphocytes % (Manual) Nucleated RBC % Seg Neutrophils # Seg Neutrophils # Man Monocytes # (Manual) D-Dimer POC ABG pH 7.461 H POC ABG pCO2 POC ABG pO2 Sodium Potassium Chloride Carbon Dioxide BUN Creatinine Glucose POC Glucose 140 H 133 H Uric Acid Calcium Phosphorus Magnesium Lactate Dehydrogenase Total Creatine Kinase C-Reactive Protein Albumin Urine WBC (Auto) Urine Creatinine Urine Total Protein 08/24/17 08/24/17 08/24/17 05:09 06:42 06:42 WBC 15.9 H Hgb RDW Lymph % (Auto) 4.6 L [place] % (Auto) 7.6 H Lymph # 0.7 L [place] # 1.2 H Seg Neutrophils % 87.7 H Seg Neuts % (Manual) Lymphocytes % (Manual) Nucleated RBC % Seg Neutrophils # 13.9 H Seg Neutrophils # Man Monocytes # (Manual) D-Dimer POC ABG pH POC ABG pCO2 POC ABG pO2 Sodium 152 H Potassium Chloride 114.4 H Carbon Dioxide BUN 85 H Creatinine 2.9 H Glucose 123 H POC Glucose 122 H Uric Acid Calcium Phosphorus Magnesium Lactate Dehydrogenase Total Creatine Kinase C-Reactive Protein Albumin Urine WBC (Auto) Urine Creatinine Urine Total Protein 08/24/17 08/24/17 08/24/17 12:26 15:51 17:13 WBC Hgb RDW Lymph % (Auto) [place] % (Auto) Lymph # [place] # Seg Neutrophils % Seg Neuts % (Manual) Lymphocytes % (Manual) Nucleated RBC % Seg Neutrophils # Seg Neutrophils # Man Monocytes # (Manual) D-Dimer POC ABG pH POC ABG pCO2 POC ABG pO2 114 H Sodium Potassium Chloride Carbon Dioxide BUN Creatinine Glucose POC Glucose 133 H 116 H Uric Acid Calcium Phosphorus Magnesium Lactate Dehydrogenase Total Creatine Kinase C-Reactive Protein Albumin Urine WBC (Auto) Urine Creatinine Urine Total Protein 08/24/17 08/25/17 08/25/17 23:44 06:31 06:43 WBC 19.1 H Hgb RDW Lymph % (Auto) 4.6 L [place] % (Auto) Lymph # 0.9 L [place] # 1.2 H Seg Neutrophils % 88.7 H Seg Neuts % (Manual) Lymphocytes % (Manual) Nucleated RBC % Seg Neutrophils # 16.9 H Seg Neutrophils # Man Monocytes # (Manual) D-Dimer POC ABG pH POC ABG pCO2 POC ABG pO2 Sodium Potassium Chloride Carbon Dioxide BUN Creatinine Glucose POC Glucose 112 H 113 H Uric Acid Calcium Phosphorus Magnesium Lactate Dehydrogenase Total Creatine Kinase C-Reactive Protein Albumin Urine WBC (Auto) Urine Creatinine Urine Total Protein 08/25/17 08/25/17 06:43 06:43 WBC Hgb RDW Lymph % (Auto) [place] % (Auto) Lymph # [place] # Seg Neutrophils % Seg Neuts % (Manual) Lymphocytes % (Manual) Nucleated RBC % Seg Neutrophils # Seg Neutrophils # Man Monocytes # (Manual) D-Dimer POC ABG pH POC ABG pCO2 POC ABG pO2 Sodium 151 H Potassium Chloride 114.1 H Carbon Dioxide BUN 80 H Creatinine 2.5 H Glucose 116 H POC Glucose Uric Acid Calcium Phosphorus Magnesium 3.20 H Lactate Dehydrogenase Total Creatine Kinase C-Reactive Protein Albumin Urine WBC (Auto) Urine Creatinine Urine Total Protein Chest x-ray: image reviewed
[2017-08-25] MEDS ORDERED: LASIX IV NR (11:30)
[2017-08-25] MEDS: D5W 1,000 ML IV SCH ×2 (13:28→21:26)
[2017-08-25 15:27] LABS: ISTAT Base Excess 2; ISTAT HCO3 26.6; ISTAT PCO2 40.9 (35-45); ISTAT PH 7.421 (7.35-7.45); ISTAT PO2 129 (80-105); ISTAT SO2 99; ISTAT TCO2 28
[2017-08-25] MEDS ORDERED: HALDOL IV PRN (16:22)
[2017-08-25 17:58] LABS: Myeloperoxidase Antibody <1.0 AI (<1.0)
[2017-08-25 18:10] LABS: Albumin 3.2 g/dL (3.8-4.8); Gamma Globulin 0.8 g/dL (0.8-1.7)
[2017-08-25] MEDS ORDERED: LEVAQUIN 750MG/150ML 750 MG/150 ML BAG IV SCH (19:00)
--- NOTE | 2017-08-25 19:02 | Progress Note ---
Assessment and Plan Assessment and plan: 47-year-old man who was admitted for asthma exacerbation, who decompensated and had to be intubated Acute hypoxic resp faillure due to asthma exacerbation, on mechanical ventilator less than 96 hours. He is still intubated on ventilator. Pulmonology following. on FiO2 of 40% Continue CPAP trials, continue to attempt to wean daily Asthma exacerbation. On solumedrol, levaquin, Duoneb Hyperkalemia. Received Kayexalate, now improved Sepsis/pneumonitis: Continue antibiotics Acute Kidney Injury due to Acute tubular necrosis. Renal Function is now improving Hypernatremia Replace free water deficits with D5 water Case discussed with consultants and family at the bedside DVT prophylaxis with Lovenox. Full code status The high probability of a clinically significant, sudden or life threatening deterioration of the [respiratory] system(s) required my full and direct attention, intervention and personal management. The aggregate critical care time was [33] minutes. This time is in addition to time spent performing reported procedures but includes the following: [] Data Review and interpretation [] Patient assessment and monitoring of vital signs [] Documentation [] Medication orders and management History Interval history: He has been tolerating CPAP trials, had some episodes of agitation, for which he received IV pushes sedation Hospitalist Physical - Physical exam Narrative exam: General.: Appears well, no distress, nontoxic HEENT: Moist mucous membranes, extraocular muscles intact, no lymphadenopathy Neck: supple Cardiac: S1-S2 heard Lungs: Ventilated breath sounds Abdomen: soft , nontender, nondistended, bowel sounds positive Extremities: no edema clubbing or cyanosis Skin: no rash or lesions Neurologic: Intubated and sedated - Constitutional Vitals: Temp Pulse Resp BP Pulse Ox 98.6 F 56 L 15 126/72 93 08/25/17 15:49 08/25/17 18:30 08/25/17 18:30 08/25/17 18:30 08/25/17 18:30 General appearance: Present: no acute distress Results - Labs CBC & Chem 7: 08/25/17 06:43 08/25/17 06:43 Labs: Laboratory Last Values WBC 19.1 K/mm3 (4.5-11.0) H 08/25/17 06:43 RBC 4.67 M/mm3 (3.65-5.03) 08/25/17 06:43 Hgb 13.3 gm/dl (11.8-15.2) 08/25/17 06:43 Hct 40.2 % (35.5-45.6) 08/25/17 06:43 MCV 86 fl (84-94) 08/25/17 06:43 MCH 29 pg (28-32) 08/25/17 06:43 MCHC 33 % (32-34) 08/25/17 06:43 RDW 15.0 % (13.2-15.2) 08/25/17 06:43 Plt Count 235 K/mm3 (140-440) 08/25/17 06:43 Lymph % (Auto) 4.6 % (13.4-35.0) L 08/25/17 06:43 [place] % (Auto) 6.5 % (0.0-7.3) 08/25/17 06:43 Eos % (Auto) 0.0 % (0.0-4.3) 08/25/17 06:43 Baso % (Auto) 0.2 % (0.0-1.8) 08/25/17 06:43 Lymph # 0.9 K/mm3 (1.2-5.4) L 08/25/17 06:43 [place] # 1.2 K/mm3 (0.0-0.8) H 08/25/17 06:43 Eos # 0.0 K/mm3 (0.0-0.4) 08/25/17 06:43 Baso # 0.0 K/mm3 (0.0-0.1) 08/25/17 06:43 Add Manual Diff Complete 08/23/17 04:22 Total Counted 100 08/23/17 04:22 Seg Neutrophils % 88.7 % (40.0-70.0) H 08/25/17 06:43 Seg Neuts % (Manual) 92.0 % (40.0-70.0) H 08/23/17 04:22 Band Neutrophils % 0 % 08/23/17 04:22 Lymphocytes % (Manual) 7.0 % (13.4-35.0) L 08/23/17 04:22 Reactive Lymphs % (Man) 1.0 % 08/23/17 04:22 Monocytes % (Manual) 0 % (0.0-7.3) 08/23/17 04:22 Eosinophils % (Manual) 0 % (0.0-4.3) 08/23/17 04:22 Basophils % (Manual) 0 % (0.0-1.8) 08/23/17 04:22 Metamyelocytes % 0 % 08/23/17 04:22 Myelocytes % 0 % 08/23/17 04:22 Promyelocytes % 0 % 08/23/17 04:22 Blast Cells % 0 % 08/23/17 04:22 Nucleated RBC % 1.0 % (0.0-0.9) H 08/23/17 04:22 Seg Neutrophils # 16.9 K/mm3 (1.8-7.7) H 08/25/17 06:43 Seg Neutrophils # Man 15.5 K/mm3 (1.8-7.7) H 08/23/17 04:22 Band Neutrophils # 0.0 K/mm3 08/23/17 04:22 Lymphocytes # (Manual) 1.2 K/mm3 (1.2-5.4) 08/23/17 04:22 Abs React Lymphs (Man) 0.2 K/mm3 08/23/17 04:22 Monocytes # (Manual) 0.0 K/mm3 (0.0-0.8) 08/23/17 04:22 Eosinophils # (Manual) 0.0 K/mm3 (0.0-0.4) 08/23/17 04:22 Basophils # (Manual) 0.0 K/mm3 (0.0-0.1) 08/23/17 04:22 Metamyelocytes # 0.0 K/mm3 08/23/17 04:22 Myelocytes # 0.0 K/mm3 08/23/17 04:22 Promyelocytes # 0.0 K/mm3 08/23/17 04:22 Blast Cells # 0.0 K/mm3 08/23/17 04:22 WBC Morphology Not Reportable 08/23/17 04:22 Hypersegmented Neuts Not Reportable 08/23/17 04:22 Hyposegmented Neuts Not Reportable 08/23/17 04:22 Hypogranular Neuts Not Reportable 08/23/17 04:22 Smudge Cells Not Reportable 08/23/17 04:22 Toxic Granulation Not Reportable 08/23/17 04:22 Toxic Vacuolation Not Reportable 08/23/17 04:22 Dohle Bodies Not Reportable 08/23/17 04:22 Pelger-Huet Anomaly Not Reportable 08/23/17 04:22 Merry Rods Not Reportable 08/23/17 04:22 Platelet Estimate Consistent w auto 08/23/17 04:22 Clumped Platelets Not Reportable 08/23/17 04:22 Plt Clumps, EDTA Not Reportable 08/23/17 04:22 Large Platelets Not Reportable 08/23/17 04:22 Giant Platelets Not Reportable 08/23/17 04:22 Platelet Satelliting Not Reportable 08/23/17 04:22 Plt Morphology Comment Not Reportable 08/23/17 04:22 RBC Morphology Not Reportable 08/23/17 04:22 Dimorphic RBCs Not Reportable 08/23/17 04:22 Polychromasia Not Reportable 08/23/17 04:22 Hypochromasia Not Reportable 08/23/17 04:22 Poikilocytosis Not Reportable 08/23/17 04:22 Anisocytosis Not Reportable 08/23/17 04:22 Microcytosis Not Reportable 08/23/17 04:22 Macrocytosis Not Reportable 08/23/17 04:22 Spherocytes Not Reportable 08/23/17 04:22 Pappenheimer Bodies Not Reportable 08/23/17 04:22 Sickle Cells Not Reportable 08/23/17 04:22 Target Cells Not Reportable 08/23/17 04:22 Tear Drop Cells Not Reportable 08/23/17 04:22 Ovalocytes Not Reportable 08/23/17 04:22 Helmet Cells Not Reportable 08/23/17 04:22 [place] Bodies Not Reportable 08/23/17 04:22 [place] Rings Not Reportable 08/23/17 04:22 [place] Cells Not Reportable 08/23/17 04:22 Bite Cells Not Reportable 08/23/17 04:22 Crenated Cell Not Reportable 08/23/17 04:22 Elliptocytes Not Reportable 08/23/17 04:22 Acanthocytes (Spur) Not Reportable 08/23/17 04:22 Rouleaux Not Reportable 08/23/17 04:22 Hemoglobin C Crystals Not Reportable 08/23/17 04:22 Schistocytes Not Reportable 08/23/17 04:22 Malaria parasites Not Reportable 08/23/17 04:22 Sudhakar Bodies Not Reportable 08/23/17 04:22 Haptoglobin 208 mg/dL (43-212) 08/20/17 10:34 Hem Pathologist Commnt No 08/23/17 04:22 D-Dimer 698.53 ng/mlDDU (0-234) H 08/19/17 15:03 POC ABG pH 7.421 (7.35-7.45) 08/25/17 15:05 POC ABG pCO2 40.9 (35-45) 08/25/17 15:05 POC ABG pO2 129 (80-105) H 08/25/17 15:05 POC ABG HCO3 26.6 08/25/17 15:05 POC ABG Total CO2 28 08/25/17 15:05 POC ABG O2 Sat 99 08/25/17 15:05 POC ABG Base Excess 2 08/25/17 15:05 FiO2 40 % 08/25/17 15:05 Sodium 151 mmol/L (137-145) H 08/25/17 06:43 Potassium 4.6 mmol/L (3.6-5.0) 08/25/17 06:43 Chloride 114.1 mmol/L (98-107) H 08/25/17 06:43 Carbon Dioxide 24 mmol/L (22-30) 08/25/17 06:43 Anion Gap 18 mmol/L 08/25/17 06:43 BUN 80 mg/dL (9-20) H 08/25/17 06:43 Creatinine 2.5 mg/dL (0.8-1.5) H 08/25/17 06:43 Estimated GFR 34 ml/min 08/25/17 06:43 BUN/Creatinine Ratio 32.00 % 08/25/17 06:43 Glucose 116 mg/dL (75-100) H 08/25/17 06:43 POC Glucose 124 (70-105) H 08/25/17 17:54 Osmolality 319 Mosm/kg 08/20/17 04:04 Lactic Acid 1.60 mmol/L (0.7-2.0) 08/25/17 11:53 Uric Acid 9.7 mg/dL (3.5-7.6) H 08/20/17 10:34 Calcium 8.6 mg/dL (8.4-10.2) 08/25/17 06:43 Phosphorus 4.50 mg/dL (2.5-4.5) D 08/25/17 06:43 Magnesium 3.20 mg/dL (1.7-2.3) H 08/25/17 06:43 Total Bilirubin 0.30 mg/dL (0.1-1.2) 08/20/17 04:04 AST 30 units/L (5-40) 08/20/17 04:04 ALT 19 units/L (7-56) 08/20/17 04:04 Alkaline Phosphatase 67 units/L (35-129) 08/20/17 04:04 Lactate Dehydrogenase 250 units/L (91-180) H 08/20/17 10:34 Total Creatine Kinase 623 units/L (55-170) H 08/20/17 10:34 Troponin T < 0.010 ng/mL (0.00-0.029) 08/18/17 08:32 C-Reactive Protein 0.70 mg/dL (0.00-1.30) 08/25/17 11:53 NT-Pro-B Natriuret Pep 18.05 pg/mL (0-450) 08/18/17 08:32 Serum Total Protein 5.8 g/dL (6.1-8.1) L 08/22/17 10:57 Total Protein 7.2 g/dL (6.3-8.2) 08/20/17 04:04 Albumin 3.2 g/dL (3.8-4.8) L 08/22/17 10:57 Albumin/Globulin Ratio 1.3 % 08/20/17 04:04 Ltvph-7-Sjezbgehz 0.4 g/dL (0.2-0.3) H 08/22/17 10:57 Mumco-2-Jghpuwtmx 0.8 g/dL (0.5-0.9) 08/22/17 10:57 Beta Globulins 0.2 g/dL (0.2-0.5) 08/22/17 10:57 Gamma Globulins 0.8 g/dL (0.8-1.7) 08/22/17 10:57 Abnorm Protein Band 1 see below 08/22/17 10:57 PEP Interpretation see below H 08/22/17 10:57 Urine Color Yellow (Yellow) 08/18/17 17:26 Urine Turbidity Clear (Clear) 08/18/17 17:26 Urine pH 5.0 (5.0-7.0) 08/18/17 17:26 Ur Specific [place] 1.026 (1.003-1.030) 08/18/17 17:26 Urine Protein >500 mg/dL (Negative) 08/18/17 17:26 Urine Glucose (UA) 50 mg/dL (Negative) 08/18/17 17:26 Urine Ketones Tr mg/dL (Negative) 08/18/17 17:26 Urine Blood Sm (Negative) 08/18/17 17: Urine Nitrite Neg (Negative) 08/18/17 17: Urine Bilirubin Neg (Negative) 08/18/17 17:26 Urine Urobilinogen < 2.0 mg/dL (<2.0) 08/18/17 17:26 Ur Leukocyte Esterase Neg (Negative) 08/18/17 17:26 Urine WBC (Auto) 9.0 /HPF (0.0-6.0) H 08/18/17 17:26 Urine RBC (Auto) 5.0 /HPF (0.0-6.0) 08/18/17 17:26 U Epithel Cells (Auto) < 1.0 /HPF (0-13.0) 08/18/17 17:26 Urine Mucus Few /HPF 08/18/17 17:26 Urine Eosinophils None seen (None Seen) 08/19/17 13:40 Urine Osmolality 542 Mosm/kg 08/19/17 13:40 Urine Creatinine 436.1 mg/dL (0.1-20.0) H 08/19/17 13:40 Protein/Creatinin Ratio 0.33 08/19/17 13:40 Urine Sodium 29 mEq/L 08/19/17 13:40 Urine Total Protein 140 mg/dL (5-11.8) H 08/19/17 13:40 MICAELA Screen Negative (Negative) 08/21/17 10:29 Proteinase 3 (PR3) Ab <1.0 AI (<1.0) 08/21/17 10:29 Myeloperoxidase Ab <1.0 AI (<1.0) 08/21/17 10:29 Glomerular Base Mem IgG <1.0 AI (<1.0) 08/21/17 10:29 Complement C3 136 mg/dL (90-180) 08/21/17 10:29 Complement C4 32 mg/dL (16-47) 08/21/17 10:29 Hep Bs Antigen Non-reactive (Negative) 08/21/17 10:29 Hepatitis C Antibody Non-reactive (NonReactive) 08/21/17 10:29
[2017-08-25] MEDS: LEVAQUIN 750MG/150ML 750 MG/150 ML BAG IV SCH (19:48)
[2017-08-25] MEDS: APRESOLINE IV PRN (21:24)
[2017-08-26] MEDS: APRESOLINE IV PRN (01:12)
[2017-08-26] MEDS: DUONEB *Not for PRN Use IH SCH ×4 (02:31→19:59)
[2017-08-26] MEDS: D5W 1,000 ML IV SCH (05:30)
[2017-08-26 05:37] LABS: BUN/Creatinine Ratio 27.91; Calcium 8.2 mg/dL (8.4-10.2); Chloride 109.5 mmol/L (98-107); Phosphorous 4.6 mg/dL (2.5-4.5); Potassium 4.3 mmol/L (3.6-5.0)
[2017-08-26] MEDS: LOPRESSOR PO SCH ×3 (06:53→22:33)
[2017-08-26] MEDS: BROVANA NEBU IH SCH ×2 (08:52→20:17)
[2017-08-26] MEDS: LOVENOX SUB-Q SCH (10:24)
--- NOTE | 2017-08-26 10:24 | Progress Note ---
Assessment and Plan Assessment and plan: 47-year-old man who was admitted for asthma exacerbation, who decompensated and had to be intubated Acute hypoxic resp faillure due to asthma exacerbation, on mechanical ventilator > 96 hours. He is still intubated on ventilator. Pulmonology following. Continue oxygen supplementation with Ventimask, Asthma exacerbation. On solumedrol, levaquin, Duoneb Hyperkalemia. Received Kayexalate, now improved Sepsis/pneumonitis: Continue antibiotics Acute Kidney Injury due to Acute tubular necrosis. Renal Function is now improving Hypernatremia Continue to Replace free water deficits with D5 water Case discussed with consultants and family at the bedside DVT prophylaxis with Lovenox. Full code status If he continues to improve will consider downgrade to medical floors later today The high probability of a clinically significant, sudden or life threatening deterioration of the [respiratory] system(s) required my full and direct attention, intervention and personal management. The aggregate critical care time was [33] minutes. This time is in addition to time spent performing reported procedures but includes the following: [] Data Review and interpretation [] Patient assessment and monitoring of vital signs [] Documentation [] Medication orders and management History Interval history: He was extubated yesterday, he is maintained on Ventimask. He reports feeling well having some shortness of breath, but he is improved. Hospitalist Physical - Physical exam Narrative exam: General.: Appears well, no distress, nontoxic HEENT: Moist mucous membranes, extraocular muscles intact, no lymphadenopathy Neck: supple Cardiac: S1-S2 heard Lungs: Decreased air entry bilaterally Abdomen: soft , nontender, nondistended, bowel sounds positive Extremities: no edema clubbing or cyanosis Skin: no rash or lesions Neurologic: no gross focal deficits Psych: appropriate behavior, appropriate mood, corporative, judgment intact - Constitutional Vitals: Temp Pulse Resp BP Pulse Ox 98.2 F 68 14 127/63 98 08/26/17 08:05 08/26/17 10:00 08/26/17 10:00 08/26/17 10:00 08/26/17 10:00 General appearance: Present: no acute distress Results - Labs CBC & Chem 7: 08/25/17 06:43 08/26/17 05:03 Labs: Laboratory Last Values WBC 19.1 K/mm3 (4.5-11.0) H 08/25/17 06:43 RBC 4.67 M/mm3 (3.65-5.03) 08/25/17 06:43 Hgb 13.3 gm/dl (11.8-15.2) 08/25/17 06:43 Hct 40.2 % (35.5-45.6) 08/25/17 06:43 MCV 86 fl (84-94) 08/25/17 06:43 MCH 29 pg (28-32) 08/25/17 06:43 MCHC 33 % (32-34) 08/25/17 06:43 RDW 15.0 % (13.2-15.2) 08/25/17 06:43 Plt Count 235 K/mm3 (140-440) 08/25/17 06:43 Lymph % (Auto) 4.6 % (13.4-35.0) L 08/25/17 06:43 [place] % (Auto) 6.5 % (0.0-7.3) 08/25/17 06:43 Eos % (Auto) 0.0 % (0.0-4.3) 08/25/17 06:43 Baso % (Auto) 0.2 % (0.0-1.8) 08/25/17 06:43 Lymph # 0.9 K/mm3 (1.2-5.4) L 08/25/17 06:43 [place] # 1.2 K/mm3 (0.0-0.8) H 08/25/17 06:43 Eos # 0.0 K/mm3 (0.0-0.4) 08/25/17 06:43 Baso # 0.0 K/mm3 (0.0-0.1) 08/25/17 06:43 Add Manual Diff Complete 08/23/17 04:22 Total Counted 100 08/23/17 04:22 Seg Neutrophils % 88.7 % (40.0-70.0) H 08/25/17 06:43 Seg Neuts % (Manual) 92.0 % (40.0-70.0) H 08/23/17 04:22 Band Neutrophils % 0 % 08/23/17 04:22 Lymphocytes % (Manual) 7.0 % (13.4-35.0) L 08/23/17 04:22 Reactive Lymphs % (Man) 1.0 % 08/23/17 04:22 Monocytes % (Manual) 0 % (0.0-7.3) 08/23/17 04:22 Eosinophils % (Manual) 0 % (0.0-4.3) 08/23/17 04:22 Basophils % (Manual) 0 % (0.0-1.8) 08/23/17 04:22 Metamyelocytes % 0 % 08/23/17 04:22 Myelocytes % 0 % 08/23/17 04:22 Promyelocytes % 0 % 08/23/17 04:22 Blast Cells % 0 % 08/23/17 04:22 Nucleated RBC % 1.0 % (0.0-0.9) H 08/23/17 04:22 Seg Neutrophils # 16.9 K/mm3 (1.8-7.7) H 08/25/17 06:43 Seg Neutrophils # Man 15.5 K/mm3 (1.8-7.7) H 08/23/17 04:22 Band Neutrophils # 0.0 K/mm3 08/23/17 04:22 Lymphocytes # (Manual) 1.2 K/mm3 (1.2-5.4) 08/23/17 04:22 Abs React Lymphs (Man) 0.2 K/mm3 08/23/17 04:22 Monocytes # (Manual) 0.0 K/mm3 (0.0-0.8) 08/23/17 04:22 Eosinophils # (Manual) 0.0 K/mm3 (0.0-0.4) 08/23/17 04:22 Basophils # (Manual) 0.0 K/mm3 (0.0-0.1) 08/23/17 04:22 Metamyelocytes # 0.0 K/mm3 08/23/17 04:22 Myelocytes # 0.0 K/mm3 08/23/17 04:22 Promyelocytes # 0.0 K/mm3 08/23/17 04:22 Blast Cells # 0.0 K/mm3 08/23/17 04:22 WBC Morphology Not Reportable 08/23/17 04:22 Hypersegmented Neuts Not Reportable 08/23/17 04:22 Hyposegmented Neuts Not Reportable 08/23/17 04:22 Hypogranular Neuts Not Reportable 08/23/17 04:22 Smudge Cells Not Reportable 08/23/17 04:22 Toxic Granulation Not Reportable 08/23/17 04:22 Toxic Vacuolation Not Reportable 08/23/17 04:22 Dohle Bodies Not Reportable 08/23/17 04:22 Pelger-Huet Anomaly Not Reportable 08/23/17 04:22 Merry Rods Not Reportable 08/23/17 04:22 Platelet Estimate Consistent w auto 08/23/17 04:22 Clumped Platelets Not Reportable 08/23/17 04:22 Plt Clumps, EDTA Not Reportable 08/23/17 04:22 Large Platelets Not Reportable 08/23/17 04:22 Giant Platelets Not Reportable 08/23/17 04:22 Platelet Satelliting Not Reportable 08/23/17 04:22 Plt Morphology Comment Not Reportable 08/23/17 04:22 RBC Morphology Not Reportable 08/23/17 04:22 Dimorphic RBCs Not Reportable 08/23/17 04:22 Polychromasia Not Reportable 08/23/17 04:22 Hypochromasia Not Reportable 08/23/17 04:22 Poikilocytosis Not Reportable 08/23/17 04:22 Anisocytosis Not Reportable 08/23/17 04:22 Microcytosis Not Reportable 08/23/17 04:22 Macrocytosis Not Reportable 08/23/17 04:22 Spherocytes Not Reportable 08/23/17 04:22 Pappenheimer Bodies Not Reportable 08/23/17 04:22 Sickle Cells Not Reportable 08/23/17 04:22 Target Cells Not Reportable 08/23/17 04:22 Tear Drop Cells Not Reportable 08/23/17 04:22 Ovalocytes Not Reportable 08/23/17 04:22 Helmet Cells Not Reportable 08/23/17 04:22 [place] Bodies Not Reportable 08/23/17 04:22 [place] Rings Not Reportable 08/23/17 04:22 [place] Cells Not Reportable 08/23/17 04:22 Bite Cells Not Reportable 08/23/17 04:22 Crenated Cell Not Reportable 08/23/17 04:22 Elliptocytes Not Reportable 08/23/17 04:22 Acanthocytes (Spur) Not Reportable 08/23/17 04:22 Rouleaux Not Reportable 08/23/17 04:22 Hemoglobin C Crystals Not Reportable 08/23/17 04:22 Schistocytes Not Reportable 08/23/17 04:22 Malaria parasites Not Reportable 08/23/17 04:22 Sudhakar Bodies Not Reportable 08/23/17 04:22 Haptoglobin 208 mg/dL (43-212) 08/20/17 10:34 Hem Pathologist Commnt No 08/23/17 04:22 D-Dimer 698.53 ng/mlDDU (0-234) H 08/19/17 15:03 POC ABG pH 7.421 (7.35-7.45) 08/25/17 15:05 POC ABG pCO2 40.9 (35-45) 08/25/17 15:05 POC ABG pO2 129 (80-105) H 08/25/17 15:05 POC ABG HCO3 26.6 08/25/17 15:05 POC ABG Total CO2 28 08/25/17 15:05 POC ABG O2 Sat 99 08/25/17 15:05 POC ABG Base Excess 2 08/25/17 15:05 FiO2 40 % 08/25/17 15:05 Sodium 147 mmol/L (137-145) H 08/26/17 05:03 Potassium 4.3 mmol/L (3.6-5.0) 08/26/17 05:03 Chloride 109.5 mmol/L (98-107) H 08/26/17 05:03 Carbon Dioxide 24 mmol/L (22-30) 08/26/17 05:03 Anion Gap 18 mmol/L 08/26/17 05:03 BUN 67 mg/dL (9-20) H 08/26/17 05:03 Creatinine 2.4 mg/dL (0.8-1.5) H 08/26/17 05:03 Estimated GFR 35 ml/min 08/26/17 05:03 BUN/Creatinine Ratio 27.91 % 08/26/17 05:03 Glucose 120 mg/dL (75-100) H 08/26/17 05:03 POC Glucose 111 (70-105) H 08/26/17 05:40 Osmolality 319 Mosm/kg 08/20/17 04:04 Lactic Acid 1.60 mmol/L (0.7-2.0) 08/25/17 11:53 Uric Acid 9.7 mg/dL (3.5-7.6) H 08/20/17 10:34 Calcium 8.2 mg/dL (8.4-10.2) L 08/26/17 05:03 Phosphorus 4.60 mg/dL (2.5-4.5) H 08/26/17 05:03 Magnesium 3.20 mg/dL (1.7-2.3) H 08/25/17 06:43 Total Bilirubin 0.30 mg/dL (0.1-1.2) 08/20/17 04:04 AST 30 units/L (5-40) 08/20/17 04:04 ALT 19 units/L (7-56) 08/20/17 04:04 Alkaline Phosphatase 67 units/L (35-129) 08/20/17 04:04 Lactate Dehydrogenase 250 units/L (91-180) H 08/20/17 10:34 Total Creatine Kinase 623 units/L (55-170) H 08/20/17 10:34 Troponin T < 0.010 ng/mL (0.00-0.029) 08/18/17 08:32 C-Reactive Protein 0.70 mg/dL (0.00-1.30) 08/25/17 11:53 NT-Pro-B Natriuret Pep 18.05 pg/mL (0-450) 08/18/17 08:32 Serum Total Protein 5.8 g/dL (6.1-8.1) L 08/22/17 10:57 Total Protein 7.2 g/dL (6.3-8.2) 08/20/17 04:04 Albumin 3.2 g/dL (3.8-4.8) L 08/22/17 10:57 Albumin/Globulin Ratio 1.3 % 08/20/17 04:04 Usyzz-1-Dlhtmuvyr 0.4 g/dL (0.2-0.3) H 08/22/17 10:57 Xsryh-5-Snbiogtfd 0.8 g/dL (0.5-0.9) 08/22/17 10:57 Beta Globulins 0.2 g/dL (0.2-0.5) 08/22/17 10:57 Gamma Globulins 0.8 g/dL (0.8-1.7) 08/22/17 10:57 Abnorm Protein Band 1 see below 08/22/17 10:57 PEP Interpretation see below H 08/22/17 10:57 Urine Color Yellow (Yellow) 08/18/17 17:26 Urine Turbidity Clear (Clear) 08/18/17 17:26 Urine pH 5.0 (5.0-7.0) 08/18/17 17:26 Ur Specific [place] 1.026 (1.003-1.030) 08/18/17 17:26 Urine Protein >500 mg/dL (Negative) 08/18/17 17:26 Urine Glucose (UA) 50 mg/dL (Negative) 08/18/17 17: Urine Ketones Tr mg/dL (Negative) 08/18/17 17: Urine Blood Sm (Negative) 08/18/17 17:26 Urine Nitrite Neg (Negative) 08/18/17 17:26 Urine Bilirubin Neg (Negative) 08/18/17 17: Urine Urobilinogen < 2.0 mg/dL (<2.0) 08/18/17 17:26 Ur Leukocyte Esterase Neg (Negative) 08/18/17 17:26 Urine WBC (Auto) 9.0 /HPF (0.0-6.0) H 08/18/17 17:26 Urine RBC (Auto) 5.0 /HPF (0.0-6.0) 08/18/17 17:26 U Epithel Cells (Auto) < 1.0 /HPF (0-13.0) 08/18/17 17: Urine Mucus Few /HPF 08/18/17 17:26 Urine Eosinophils None seen (None Seen) 08/19/17 13:40 Urine Osmolality 542 Mosm/kg 08/19/17 13:40 Urine Creatinine 436.1 mg/dL (0.1-20.0) H 08/19/17 13:40 Protein/Creatinin Ratio 0.33 08/19/17 13:40 Urine Sodium 29 mEq/L 08/19/17 13:40 Urine Total Protein 140 mg/dL (5-11.8) H 08/19/17 13:40 MICAELA Screen Negative (Negative) 08/21/17 10:29 Proteinase 3 (PR3) Ab <1.0 AI (<1.0) 08/21/17 10:29 Myeloperoxidase Ab <1.0 AI (<1.0) 08/21/17 10:29 Glomerular Base Mem IgG <1.0 AI (<1.0) 08/21/17 10:29 Complement C3 136 mg/dL (90-180) 08/21/17 10:29 Complement C4 32 mg/dL (16-47) 08/21/17 10:29 Hep Bs Antigen Non-reactive (Negative) 08/21/17 10:29 Hepatitis C Antibody Non-reactive (NonReactive) 08/21/17 10:29
--- NOTE | 2017-08-26 10:29 | Progress Note ---
Assessment and Plan (1) Acute respiratory failure with hypoxia Current Visit: Yes Status: Acute Plan to address problem: extubated, on BIPAP (2) Acute renal failure due to tubular necrosis Current Visit: Yes Status: Acute Plan to address problem: Renal function reviewed. Cr and BUN cont to improve, good UOP Hypernatremia- cont free water flushes to 350 ml every 4 hours, will adjust as needed. primary team ordered D5W but he is on D5 NS @ 125 cc/h, told primary nurse to d/c NS. Obtain daily weights Renally dose medications Avoid Nephrotoxic agents (3) SIRS (systemic inflammatory response syndrome) Current Visit: Yes Status: Acute Plan to address problem: On IV Solumedrol. (4) Hyperphosphatemia Current Visit: Yes Status: Acute Plan to address problem: Controlled on Renvela will decrease to 1 tab 800 mg TID Subjective Date of service: 08/26/17 Principal diagnosis: Acute Hypoxemic Respiratory Failure; GUZMAN; Morbid Obesity Interval history: extubated, on Bipap, follows simple commands, no family at bedside Objective - Vital Signs Vital signs: Vital Signs - 12hr 08/25/17 08/25/17 08/25/17 22:30 23:00 23:30 Temperature Pulse Rate 84 82 69 Pulse Rate [ Anterior Bilateral Throughout] Pulse Rate [ Bilateral Lower Lobe] Pulse Rate [ From Monitor] Respiratory 14 15 14 Rate Respiratory Rate [Anterior Bilateral Throughout] Respiratory Rate [Bilateral Lower Lobe] Blood Pressure 150/89 151/89 142/85 O2 Sat by Pulse 94 93 95 Oximetry 08/25/17 08/26/17 08/26/17 23:49 00:00 00:13 Temperature 98.9 F Pulse Rate 68 Pulse Rate [ Anterior Bilateral Throughout] Pulse Rate [ Bilateral Lower Lobe] Pulse Rate [ 68 From Monitor] Respiratory 15 Rate Respiratory Rate [Anterior Bilateral Throughout] Respiratory Rate [Bilateral Lower Lobe] Blood Pressure 155/90 O2 Sat by Pulse 96 98 99 Oximetry 08/26/17 08/26/17 08/26/17 00:30 01:00 01:12 Temperature Pulse Rate 61 78 73 Pulse Rate [ Anterior Bilateral Throughout] Pulse Rate [ Bilateral Lower Lobe] Pulse Rate [ From Monitor] Respiratory 15 17 Rate Respiratory Rate [Anterior Bilateral Throughout] Respiratory Rate [Bilateral Lower Lobe] Blood Pressure 166/83 159/89 166/83 O2 Sat by Pulse 99 98 Oximetry 0908/26/17 08/26/17 01:30 02:00 02:30 Temperature Pulse Rate 78 72 81 Pulse Rate [ Anterior Bilateral Throughout] Pulse Rate [ Bilateral Lower Lobe] Pulse Rate [ From Monitor] Respiratory 14 14 15 Rate Respiratory Rate [Anterior Bilateral Throughout] Respiratory Rate [Bilateral Lower Lobe] Blood Pressure 136/80 139/75 161/143 O2 Sat by Pulse 95 93 97 Oximetry 08/26/17 08/26/17 08/26/17 02:31 02:43 03:00 Temperature Pulse Rate 83 Pulse Rate [ Anterior Bilateral Throughout] Pulse Rate [ 77 86 Bilateral Lower Lobe] Pulse Rate [ From Monitor] Respiratory 14 Rate Respiratory Rate [Anterior Bilateral Throughout] Respiratory 14 17 Rate [Bilateral Lower Lobe] Blood Pressure 137/82 O2 Sat by Pulse 94 Oximetry 08/26/17 08/26/17 08/26/17 03:30 04:00 04:27 Temperature 99.0 F Pulse Rate 80 71 68 Pulse Rate [ Anterior Bilateral Throughout] Pulse Rate [ Bilateral Lower Lobe] Pulse Rate [ 67 From Monitor] Respiratory 15 14 14 Rate Respiratory Rate [Anterior Bilateral Throughout] Respiratory Rate [Bilateral Lower Lobe] Blood Pressure 127/73 145/82 145/82 O2 Sat by Pulse 95 97 97 Oximetry 08/26/17 08/26/17 08/26/17 04:30 05:00 05:30 Temperature Pulse Rate 67 72 58 L Pulse Rate [ Anterior Bilateral Throughout] Pulse Rate [ Bilateral Lower Lobe] Pulse Rate [ From Monitor] Respiratory 14 14 14 Rate Respiratory Rate [Anterior Bilateral Throughout] Respiratory Rate [Bilateral Lower Lobe] Blood Pressure 121/66 121/66 121/67 O2 Sat by Pulse 94 94 95 Oximetry 08/26/17 08/26/17 08/26/17 06:00 06:30 06:53 Temperature Pulse Rate 55 L 57 L 59 L Pulse Rate [ Anterior Bilateral Throughout] Pulse Rate [ Bilateral Lower Lobe] Pulse Rate [ From Monitor] Respiratory 14 15 Rate Respiratory Rate [Anterior Bilateral Throughout] Respiratory Rate [Bilateral Lower Lobe] Blood Pressure 133/81 132/91 133/81 O2 Sat by Pulse 100 98 Oximetry 08/26/17 08/26/17 08/26/17 07:00 07:30 08:00 Temperature Pulse Rate 73 76 65 Pulse Rate [ Anterior Bilateral Throughout] Pulse Rate [ Bilateral Lower Lobe] Pulse Rate [ From Monitor] Respiratory 11 L 15 10 L Rate Respiratory Rate [Anterior Bilateral Throughout] Respiratory Rate [Bilateral Lower Lobe] Blood Pressure 131/71 126/63 129/70 O2 Sat by Pulse 96 95 95 Oximetry 08/26/17 08/26/17 08/26/17 08:05 08:30 08:48 Temperature 98.2 F Pulse Rate 61 61 Pulse Rate [ Anterior Bilateral Throughout] Pulse Rate [ Bilateral Lower Lobe] Pulse Rate [ From Monitor] Respiratory 14 15 Rate Respiratory Rate [Anterior Bilateral Throughout] Respiratory Rate [Bilateral Lower Lobe] Blood Pressure 116/67 116/67 O2 Sat by Pulse 97 97 Oximetry 08/26/17 08/26/17 08/26/17 08:49 09:00 09:03 Temperature Pulse Rate Pulse Rate [ 55 L 60 Anterior Bilateral Throughout] Pulse Rate [ Bilateral Lower Lobe] Pulse Rate [ From Monitor] Respiratory Rate Respiratory 15 14 Rate [Anterior Bilateral Throughout] Respiratory Rate [Bilateral Lower Lobe] Blood Pressure 142/77 O2 Sat by Pulse 97 Oximetry 08/26/17 08/26/17 08/26/17 09:10 09:12 09:30 Temperature Pulse Rate 59 L 62 Pulse Rate [ Anterior Bilateral Throughout] Pulse Rate [ Bilateral Lower Lobe] Pulse Rate [ From Monitor] Respiratory 14 17 Rate Respiratory Rate [Anterior Bilateral Throughout] Respiratory Rate [Bilateral Lower Lobe] Blood Pressure 142/77 142/77 117/57 O2 Sat by Pulse 97 98 95 Oximetry 08/26/17 10:00 Temperature Pulse Rate 68 Pulse Rate [ Anterior Bilateral Throughout] Pulse Rate [ Bilateral Lower Lobe] Pulse Rate [ From Monitor] Respiratory 14 Rate Respiratory Rate [Anterior Bilateral Throughout] Respiratory Rate [Bilateral Lower Lobe] Blood Pressure 127/63 O2 Sat by Pulse 98 Oximetry - General Appearance General appearance: well-developed, well-nourished, obese EENT: ATNC, PERRL, mucous membranes dry Neck: no JVD, no carotid bruit Respiratory: Present: Decreased Breath Sounds. Absent: Rales, Ronchi Cardiology: regular, S1S2 Gastrointestinal: normoactive bowel sounds Integumentary: no rash, warm and dry Neurologic: other (follows simple commands) Musculoskeletal: other (trace pitting edema in BLE) Psychiatric: cooperative - Lab 08/25/17 06:43 08/26/17 05:03 Most recent lab results Calcium 8.2 mg/dL (8.4-10.2) L 08/26/17 05:03 Phosphorus 4.60 mg/dL (2.5-4.5) H 08/26/17 05:03 Magnesium 3.20 mg/dL (1.7-2.3) H 08/25/17 06:43 Urine Creatinine 436.1 mg/dL (0.1-20.0) H 08/19/17 13:40 Urine Sodium 29 mEq/L 08/19/17 13:40 Urine Total Protein 140 mg/dL (5-11.8) H 08/19/17 13:40
--- NOTE | 2017-08-26 11:21 | Progress Note ---
Subjective Date of service: 08/26/17 Principal diagnosis: Acute Hypoxemic Respiratory Failure; GUZMAN; Morbid Obesity Interval history: Seen and examined at bedside; 24 hour events reviewed; nursing and respiratory care staff consulted; no adverse overnight events reported to me; Objective Vital Signs - 12hr 08/25/17 08/25/17 08/26/17 23:30 23:49 00:00 Temperature 98.9 F Pulse Rate 69 68 Pulse Rate [ Anterior Bilateral Throughout] Pulse Rate [ Bilateral Lower Lobe] Pulse Rate [ From Monitor] Respiratory 14 15 Rate Respiratory Rate [Anterior Bilateral Throughout] Respiratory Rate [Bilateral Lower Lobe] Blood Pressure 142/85 155/90 O2 Sat by Pulse 95 96 98 Oximetry 08/26/17 08/26/17 08/26/17 00:13 00:30 01:00 Temperature Pulse Rate 61 78 Pulse Rate [ Anterior Bilateral Throughout] Pulse Rate [ Bilateral Lower Lobe] Pulse Rate [ 68 From Monitor] Respiratory 15 17 Rate Respiratory Rate [Anterior Bilateral Throughout] Respiratory Rate [Bilateral Lower Lobe] Blood Pressure 166/83 159/89 O2 Sat by Pulse 99 99 98 Oximetry 08/26/17 08/26/17 08/26/17 01:12 01:30 02:00 Temperature Pulse Rate 73 78 72 Pulse Rate [ Anterior Bilateral Throughout] Pulse Rate [ Bilateral Lower Lobe] Pulse Rate [ From Monitor] Respiratory 14 14 Rate Respiratory Rate [Anterior Bilateral Throughout] Respiratory Rate [Bilateral Lower Lobe] Blood Pressure 166/83 136/80 139/75 O2 Sat by Pulse 95 93 Oximetry 08/26/17 08/26/17 08/26/17 02:30 02:31 02:43 Temperature Pulse Rate 81 Pulse Rate [ Anterior Bilateral Throughout] Pulse Rate [ 77 86 Bilateral Lower Lobe] Pulse Rate [ From Monitor] Respiratory 15 Rate Respiratory Rate [Anterior Bilateral Throughout] Respiratory 14 17 Rate [Bilateral Lower Lobe] Blood Pressure 161/143 O2 Sat by Pulse 97 Oximetry 08/26/17 08/26/17 08/26/17 03:00 03:30 04:00 Temperature 99.0 F Pulse Rate 83 80 71 Pulse Rate [ Anterior Bilateral Throughout] Pulse Rate [ Bilateral Lower Lobe] Pulse Rate [ 67 From Monitor] Respiratory 14 15 14 Rate Respiratory Rate [Anterior Bilateral Throughout] Respiratory Rate [Bilateral Lower Lobe] Blood Pressure 137/82 127/73 145/82 O2 Sat by Pulse 94 95 97 Oximetry 08/26/17 08/26/17 08/26/17 04:27 04:30 05:00 Temperature Pulse Rate 68 67 72 Pulse Rate [ Anterior Bilateral Throughout] Pulse Rate [ Bilateral Lower Lobe] Pulse Rate [ From Monitor] Respiratory 14 14 14 Rate Respiratory Rate [Anterior Bilateral Throughout] Respiratory Rate [Bilateral Lower Lobe] Blood Pressure 145/82 121/66 121/66 O2 Sat by Pulse 97 94 94 Oximetry 08/26/17 08/26/17 08/26/17 05:30 06:00 06:30 Temperature Pulse Rate 58 L 55 L 57 L Pulse Rate [ Anterior Bilateral Throughout] Pulse Rate [ Bilateral Lower Lobe] Pulse Rate [ From Monitor] Respiratory 14 14 15 Rate Respiratory Rate [Anterior Bilateral Throughout] Respiratory Rate [Bilateral Lower Lobe] Blood Pressure 121/67 133/81 132/91 O2 Sat by Pulse 95 100 98 Oximetry 08/26/17 08/26/17 08/26/17 06:53 07:00 07:30 Temperature Pulse Rate 59 L 73 76 Pulse Rate [ Anterior Bilateral Throughout] Pulse Rate [ Bilateral Lower Lobe] Pulse Rate [ From Monitor] Respiratory 11 L 15 Rate Respiratory Rate [Anterior Bilateral Throughout] Respiratory Rate [Bilateral Lower Lobe] Blood Pressure 133/81 131/71 126/63 O2 Sat by Pulse 96 95 Oximetry 08/26/17 08/26/17 08/26/17 08:00 08:05 08:30 Temperature 98.2 F Pulse Rate 65 61 Pulse Rate [ Anterior Bilateral Throughout] Pulse Rate [ Bilateral Lower Lobe] Pulse Rate [ From Monitor] Respiratory 10 L 14 Rate Respiratory Rate [Anterior Bilateral Throughout] Respiratory Rate [Bilateral Lower Lobe] Blood Pressure 129/70 116/67 O2 Sat by Pulse 95 97 Oximetry 08/26/17 08/26/17 08/26/17 08:48 08:49 09:00 Temperature Pulse Rate 61 Pulse Rate [ 55 L Anterior Bilateral Throughout] Pulse Rate [ Bilateral Lower Lobe] Pulse Rate [ From Monitor] Respiratory 15 Rate Respiratory 15 Rate [Anterior Bilateral Throughout] Respiratory Rate [Bilateral Lower Lobe] Blood Pressure 116/67 142/77 O2 Sat by Pulse 97 97 Oximetry 08/26/17 08/26/17 08/26/17 09:03 09:10 09:12 Temperature Pulse Rate 59 L Pulse Rate [ 60 Anterior Bilateral Throughout] Pulse Rate [ Bilateral Lower Lobe] Pulse Rate [ From Monitor] Respiratory 14 Rate Respiratory 14 Rate [Anterior Bilateral Throughout] Respiratory Rate [Bilateral Lower Lobe] Blood Pressure 142/77 142/77 O2 Sat by Pulse 97 98 Oximetry 08/26/17 08/26/17 08/26/17 09:30 10:00 10:30 Temperature Pulse Rate 62 68 64 Pulse Rate [ Anterior Bilateral Throughout] Pulse Rate [ Bilateral Lower Lobe] Pulse Rate [ From Monitor] Respiratory 17 14 13 Rate Respiratory Rate [Anterior Bilateral Throughout] Respiratory Rate [Bilateral Lower Lobe] Blood Pressure 117/57 127/63 112/63 O2 Sat by Pulse 95 98 94 Oximetry 08/26/17 11:00 Temperature Pulse Rate 61 Pulse Rate [ Anterior Bilateral Throughout] Pulse Rate [ Bilateral Lower Lobe] Pulse Rate [ From Monitor] Respiratory 17 Rate Respiratory Rate [Anterior Bilateral Throughout] Respiratory Rate [Bilateral Lower Lobe] Blood Pressure 129/63 O2 Sat by Pulse 95 Oximetry Constitutional: no acute distress, lethargic Eyes: non-icteric ENT: oropharynx moist Neck: supple, no lymphadenopathy, other (large neck circumfrence; possible ANGIE) Effort: mildly labored Ascultation: Bilateral: clear, diminished breath sounds, wheezes (expiratory), rales, rhonchi (scant in bases), other (prolonged expiration) Cardiovascular: regular rate and rhythm Gastrointestinal: normoactive bowel sounds, soft, non-tender, non-distended Integumentary: normal Extremities: no cyanosis, no edema, pulses normal, no ischemia or petechiae Neurologic: normal mental status, non-focal exam, pupils equal and round, motor strength normal and Psychiatric: mood appropriate, affect normal CBC and BMP: 08/25/17 06:43 08/26/17 05:03 ABG, PT/INR, D-dimer: ABG POC ABG pH 7.421 (7.35-7.45) 08/25/17 15:05 POC ABG pCO2 40.9 (35-45) 08/25/17 15:05 POC ABG pO2 129 (80-105) H 08/25/17 15:05 POC ABG HCO3 26.6 08/25/17 15:05 POC ABG Total CO2 28 08/25/17 15:05 POC ABG O2 Sat 99 08/25/17 15:05 PT/INR, D-dimer D-Dimer 698.53 ng/mlDDU (0-234) H 08/19/17 15:03 Abnormal lab findings: Abnormal Labs 08/18/17 08/18/17 08/19/17 16:54 17:26 04:37 WBC 18.1 H Hgb RDW Lymph % (Auto) 6.1 L Winn % (Auto) Lymph # 1.1 L Winn # Seg Neutrophils % 89.7 H Seg Neuts % (Manual) Lymphocytes % (Manual) Nucleated RBC % Seg Neutrophils # 16.2 H Seg Neutrophils # Man Monocytes # (Manual) D-Dimer POC ABG pH 7.231 L POC ABG pCO2 63.3 H POC ABG pO2 Sodium Potassium Chloride Carbon Dioxide BUN Creatinine Glucose POC Glucose Uric Acid Calcium Phosphorus Magnesium Lactate Dehydrogenase Total Creatine Kinase C-Reactive Protein Serum Total Protein Albumin Bqtup-0-Iyrkwbtsn PEP Interpretation Urine WBC (Auto) 9.0 H Urine Creatinine Urine Total Protein 08/19/17 08/19/17 08/19/17 04:37 05:37 13:40 WBC Hgb RDW Lymph % (Auto) Winn % (Auto) Lymph # Winn # Seg Neutrophils % Seg Neuts % (Manual) Lymphocytes % (Manual) Nucleated RBC % Seg Neutrophils # Seg Neutrophils # Man Monocytes # (Manual) D-Dimer POC ABG pH 7.320 L POC ABG pCO2 POC ABG pO2 Sodium Potassium Chloride Carbon Dioxide BUN 22 H Creatinine 2.9 H D Glucose 124 H POC Glucose Uric Acid Calcium Phosphorus 1.00 L Magnesium Lactate Dehydrogenase Total Creatine Kinase C-Reactive Protein Serum Total Protein Albumin 3.5 L Fnkkq-9-Pwiywnbgr PEP Interpretation Urine WBC (Auto) Urine Creatinine 430.8 H Urine Total Protein 144 H 08/19/17 08/19/17 08/19/17 13:40 15:03 18:43 WBC Hgb RDW Lymph % (Auto) Winn % (Auto) Lymph # Winn # Seg Neutrophils % Seg Neuts % (Manual) Lymphocytes % (Manual) Nucleated RBC % Seg Neutrophils # Seg Neutrophils # Man Monocytes # (Manual) D-Dimer 698.53 H POC ABG pH POC ABG pCO2 POC ABG pO2 Sodium Potassium Chloride Carbon Dioxide BUN Creatinine Glucose POC Glucose Uric Acid Calcium Phosphorus Magnesium Lactate Dehydrogenase Total Creatine Kinase C-Reactive Protein 3.30 H Serum Total Protein Albumin Qirjj-2-Fsojhncoa PEP Interpretation Urine WBC (Auto) Urine Creatinine 436.1 H Urine Total Protein 140 H 08/20/17 08/20/17 08/20/17 04:04 04:04 05:18 WBC 26.5 H Hgb RDW Lymph % (Auto) Winn % (Auto) Lymph # Winn # Seg Neutrophils % Seg Neuts % (Manual) Lymphocytes % (Manual) 12.0 L Nucleated RBC % Seg Neutrophils # Seg Neutrophils # Man 15.9 H Monocytes # (Manual) 1.3 H D-Dimer POC ABG pH 7.263 L POC ABG pCO2 48.7 H POC ABG pO2 Sodium Potassium 6.1 H* D Chloride Carbon Dioxide 20 L BUN 44 H Creatinine 4.3 H Glucose 111 H POC Glucose Uric Acid Calcium Phosphorus 7.30 H D Magnesium Lactate Dehydrogenase Total Creatine Kinase C-Reactive Protein Serum Total Protein Albumin Qqxlb-5-Duazrwhzp PEP Interpretation Urine WBC (Auto) Urine Creatinine Urine Total Protein 08/20/17 08/20/17 08/20/17 08:51 10:02 10:34 WBC Hgb RDW Lymph % (Auto) Winn % (Auto) Lymph # Winn # Seg Neutrophils % Seg Neuts % (Manual) Lymphocytes % (Manual) Nucleated RBC % Seg Neutrophils # Seg Neutrophils # Man Monocytes # (Manual) D-Dimer POC ABG pH 7.232 L POC ABG pCO2 54.1 H POC ABG pO2 75 L Sodium Potassium Chloride Carbon Dioxide BUN 52 H Creatinine 4.5 H Glucose 118 H POC Glucose 110 H Uric Acid Calcium 8.2 L Phosphorus Magnesium Lactate Dehydrogenase Total Creatine Kinase C-Reactive Protein Serum Total Protein Albumin Awzpr-7-Xeeoioxho PEP Interpretation Urine WBC (Auto) Urine Creatinine Urine Total Protein 08/20/17 08/20/17 08/20/17 10:34 22:12 23:49 WBC Hgb RDW Lymph % (Auto) Winn % (Auto) Lymph # Winn # Seg Neutrophils % Seg Neuts % (Manual) Lymphocytes % (Manual) Nucleated RBC % Seg Neutrophils # Seg Neutrophils # Man Monocytes # (Manual) D-Dimer POC ABG pH 7.314 L POC ABG pCO2 45.8 H POC ABG pO2 114 H Sodium Potassium Chloride Carbon Dioxide BUN Creatinine Glucose POC Glucose 119 H Uric Acid 9.7 H Calcium Phosphorus Magnesium Lactate Dehydrogenase 250 H Total Creatine Kinase 623 H C-Reactive Protein Serum Total Protein Albumin Oirmy-4-Hqguakkzd PEP Interpretation Urine WBC (Auto) Urine Creatinine Urine Total Protein 08/21/17 08/21/17 08/21/17 04:57 05:55 06:25 WBC 14.2 H Hgb 11.7 L RDW Lymph % (Auto) Winn % (Auto) Lymph # Winn # Seg Neutrophils % Seg Neuts % (Manual) Lymphocytes % (Manual) 10.0 L Nucleated RBC % Seg Neutrophils # Seg Neutrophils # Man 8.8 H Monocytes # (Manual) D-Dimer POC ABG pH 7.321 L POC ABG pCO2 46.8 H POC ABG pO2 115 H Sodium Potassium Chloride Carbon Dioxide BUN Creatinine Glucose POC Glucose 134 H Uric Acid Calcium Phosphorus Magnesium Lactate Dehydrogenase Total Creatine Kinase C-Reactive Protein Serum Total Protein Albumin Xseot-5-Rhggbqery PEP Interpretation Urine WBC (Auto) Urine Creatinine Urine Total Protein 08/21/17 08/21/17 08/21/17 06:25 06:34 10:29 WBC Hgb RDW Lymph % (Auto) Winn % (Auto) Lymph # Winn # Seg Neutrophils % Seg Neuts % (Manual) Lymphocytes % (Manual) Nucleated RBC % Seg Neutrophils # Seg Neutrophils # Man Monocytes # (Manual) D-Dimer POC ABG pH POC ABG pCO2 POC ABG pO2 Sodium 147 H Potassium Chloride 110.3 H Carbon Dioxide BUN 69 H Creatinine 4.1 H Glucose 115 H POC Glucose Uric Acid Calcium 8.0 L Phosphorus 5.00 H D Magnesium 2.60 H Lactate Dehydrogenase Total Creatine Kinase C-Reactive Protein Serum Total Protein Albumin Jutdy-0-Hndyvkilj PEP Interpretation Urine WBC (Auto) Urine Creatinine Urine Total Protein 08/21/17 08/21/17 08/22/17 11:41 17:03 04:54 WBC Hgb RDW Lymph % (Auto) Winn % (Auto) Lymph # Winn # Seg Neutrophils % Seg Neuts % (Manual) Lymphocytes % (Manual) Nucleated RBC % Seg Neutrophils # Seg Neutrophils # Man Monocytes # (Manual) D-Dimer POC ABG pH 7.301 L POC ABG pCO2 55.6 H POC ABG pO2 Sodium Potassium Chloride Carbon Dioxide BUN Creatinine Glucose POC Glucose 128 H 115 H Uric Acid Calcium Phosphorus Magnesium Lactate Dehydrogenase Total Creatine Kinase C-Reactive Protein Serum Total Protein Albumin Uqdym-8-Frvolwbxy PEP Interpretation Urine WBC (Auto) Urine Creatinine Urine Total Protein 08/22/17 08/22/17 08/22/17 05:10 05:27 05:27 WBC 17.5 H Hgb RDW 15.3 H Lymph % (Auto) Winn % (Auto) Lymph # Winn # Seg Neutrophils % Seg Neuts % (Manual) 71.0 H Lymphocytes % (Manual) 11.0 L Nucleated RBC % Seg Neutrophils # Seg Neutrophils # Man 12.4 H Monocytes # (Manual) D-Dimer POC ABG pH POC ABG pCO2 POC ABG pO2 Sodium 149 H Potassium 5.1 H Chloride 113.1 H Carbon Dioxide BUN 79 H Creatinine 3.8 H Glucose 124 H POC Glucose 127 H Uric Acid Calcium 7.9 L Phosphorus 5.90 H Magnesium Lactate Dehydrogenase Total Creatine Kinase C-Reactive Protein Serum Total Protein Albumin Wxkqk-1-Mwzvamvkt PEP Interpretation Urine WBC (Auto) Urine Creatinine Urine Total Protein 08/22/17 08/22/17 08/22/17 10:57 12:21 16:53 WBC Hgb RDW Lymph % (Auto) Winn % (Auto) Lymph # Winn # Seg Neutrophils % Seg Neuts % (Manual) Lymphocytes % (Manual) Nucleated RBC % Seg Neutrophils # Seg Neutrophils # Man Monocytes # (Manual) D-Dimer POC ABG pH POC ABG pCO2 POC ABG pO2 Sodium Potassium Chloride Carbon Dioxide BUN Creatinine Glucose POC Glucose 115 H 109 H Uric Acid Calcium Phosphorus Magnesium Lactate Dehydrogenase Total Creatine Kinase C-Reactive Protein Serum Total Protein 5.8 L Albumin 3.2 L Atqtd-8-Beiihotfw 0.4 H PEP Interpretation see below H Urine WBC (Auto) Urine Creatinine Urine Total Protein 08/22/17 08/23/17 08/23/17 17:40 01:22 04:22 WBC 16.8 H Hgb RDW Lymph % (Auto) Winn % (Auto) Lymph # Winn # Seg Neutrophils % Seg Neuts % (Manual) 92.0 H Lymphocytes % (Manual) 7.0 L Nucleated RBC % 1.0 H Seg Neutrophils # Seg Neutrophils # Man 15.5 H Monocytes # (Manual) D-Dimer POC ABG pH 7.298 L POC ABG pCO2 51.3 H POC ABG pO2 Sodium Potassium Chloride Carbon Dioxide BUN Creatinine Glucose POC Glucose 147 H Uric Acid Calcium Phosphorus Magnesium Lactate Dehydrogenase Total Creatine Kinase C-Reactive Protein Serum Total Protein Albumin Rtbqq-7-Hlyepuhll PEP Interpretation Urine WBC (Auto) Urine Creatinine Urine Total Protein 08/23/17 08/23/17 08/23/17 04:22 04:22 05:07 WBC Hgb RDW Lymph % (Auto) Winn % (Auto) Lymph # Winn # Seg Neutrophils % Seg Neuts % (Manual) Lymphocytes % (Manual) Nucleated RBC % Seg Neutrophils # Seg Neutrophils # Man Monocytes # (Manual) D-Dimer POC ABG pH POC ABG pCO2 POC ABG pO2 Sodium 148 H Potassium Chloride 110.9 H Carbon Dioxide 21 L BUN 85 H Creatinine 3.6 H Glucose 148 H POC Glucose 134 H Uric Acid Calcium Phosphorus Magnesium 3.40 H Lactate Dehydrogenase Total Creatine Kinase C-Reactive Protein Serum Total Protein Albumin Kvakd-1-Brghhxnqt PEP Interpretation Urine WBC (Auto) Urine Creatinine Urine Total Protein 08/23/17 08/23/17 08/23/17 11:36 17:20 23:18 WBC Hgb RDW Lymph % (Auto) Winn % (Auto) Lymph # Winn # Seg Neutrophils % Seg Neuts % (Manual) Lymphocytes % (Manual) Nucleated RBC % Seg Neutrophils # Seg Neutrophils # Man Monocytes # (Manual) D-Dimer POC ABG pH POC ABG pCO2 POC ABG pO2 Sodium Potassium Chloride Carbon Dioxide BUN Creatinine Glucose POC Glucose 124 H 140 H 133 H Uric Acid Calcium Phosphorus Magnesium Lactate Dehydrogenase Total Creatine Kinase C-Reactive Protein Serum Total Protein Albumin Uwaqe-1-Nmithared PEP Interpretation Urine WBC (Auto) Urine Creatinine Urine Total Protein 08/24/17 08/24/17 08/24/17 03:24 05:09 06:42 WBC 15.9 H Hgb RDW Lymph % (Auto) 4.6 L Winn % (Auto) 7.6 H Lymph # 0.7 L Winn # 1.2 H Seg Neutrophils % 87.7 H Seg Neuts % (Manual) Lymphocytes % (Manual) Nucleated RBC % Seg Neutrophils # 13.9 H Seg Neutrophils # Man Monocytes # (Manual) D-Dimer POC ABG pH 7.461 H POC ABG pCO2 POC ABG pO2 Sodium Potassium Chloride Carbon Dioxide BUN Creatinine Glucose POC Glucose 122 H Uric Acid Calcium Phosphorus Magnesium Lactate Dehydrogenase Total Creatine Kinase C-Reactive Protein Serum Total Protein Albumin Rewgz-4-Rnmxanbno PEP Interpretation Urine WBC (Auto) Urine Creatinine Urine Total Protein 08/24/17 08/24/17 08/24/17 06:42 12:26 15:51 WBC Hgb RDW Lymph % (Auto) Winn % (Auto) Lymph # Winn # Seg Neutrophils % Seg Neuts % (Manual) Lymphocytes % (Manual) Nucleated RBC % Seg Neutrophils # Seg Neutrophils # Man Monocytes # (Manual) D-Dimer POC ABG pH POC ABG pCO2 POC ABG pO2 114 H Sodium 152 H Potassium Chloride 114.4 H Carbon Dioxide BUN 85 H Creatinine 2.9 H Glucose 123 H POC Glucose 133 H Uric Acid Calcium Phosphorus Magnesium Lactate Dehydrogenase Total Creatine Kinase C-Reactive Protein Serum Total Protein Albumin Waizh-2-Shvezqldw PEP Interpretation Urine WBC (Auto) Urine Creatinine Urine Total Protein 08/24/17 08/24/17 08/25/17 17:13 23:44 06:31 WBC Hgb RDW Lymph % (Auto) Winn % (Auto) Lymph # Winn # Seg Neutrophils % Seg Neuts % (Manual) Lymphocytes % (Manual) Nucleated RBC % Seg Neutrophils # Seg Neutrophils # Man Monocytes # (Manual) D-Dimer POC ABG pH POC ABG pCO2 POC ABG pO2 Sodium Potassium Chloride Carbon Dioxide BUN Creatinine Glucose POC Glucose 116 H 112 H 113 H Uric Acid Calcium Phosphorus Magnesium Lactate Dehydrogenase Total Creatine Kinase C-Reactive Protein Serum Total Protein Albumin Vgcjk-0-Hxvzhmbah PEP Interpretation Urine WBC (Auto) Urine Creatinine Urine Total Protein 08/25/17 08/25/17 08/25/17 06:43 06:43 06:43 WBC 19.1 H Hgb RDW Lymph % (Auto) 4.6 L Winn % (Auto) Lymph # 0.9 L Winn # 1.2 H Seg Neutrophils % 88.7 H Seg Neuts % (Manual) Lymphocytes % (Manual) Nucleated RBC % Seg Neutrophils # 16.9 H Seg Neutrophils # Man Monocytes # (Manual) D-Dimer POC ABG pH POC ABG pCO2 POC ABG pO2 Sodium 151 H Potassium Chloride 114.1 H Carbon Dioxide BUN 80 H Creatinine 2.5 H Glucose 116 H POC Glucose Uric Acid Calcium Phosphorus Magnesium 3.20 H Lactate Dehydrogenase Total Creatine Kinase C-Reactive Protein Serum Total Protein Albumin Nhkzw-7-Hlqontige PEP Interpretation Urine WBC (Auto) Urine Creatinine Urine Total Protein 08/25/17 08/25/17 08/25/17 11:30 15:05 17:54 WBC Hgb RDW Lymph % (Auto) Winn % (Auto) Lymph # Winn # Seg Neutrophils % Seg Neuts % (Manual) Lymphocytes % (Manual) Nucleated RBC % Seg Neutrophils # Seg Neutrophils # Man Monocytes # (Manual) D-Dimer POC ABG pH POC ABG pCO2 POC ABG pO2 129 H Sodium Potassium Chloride Carbon Dioxide BUN Creatinine Glucose POC Glucose 120 H 124 H Uric Acid Calcium Phosphorus Magnesium Lactate Dehydrogenase Total Creatine Kinase C-Reactive Protein Serum Total Protein Albumin Ozxof-3-Yxpajowcl PEP Interpretation Urine WBC (Auto) Urine Creatinine Urine Total Protein 08/25/17 08/26/17 08/26/17 23:37 05:03 05:40 WBC Hgb RDW Lymph % (Auto) Winn % (Auto) Lymph # Winn # Seg Neutrophils % Seg Neuts % (Manual) Lymphocytes % (Manual) Nucleated RBC % Seg Neutrophils # Seg Neutrophils # Man Monocytes # (Manual) D-Dimer POC ABG pH POC ABG pCO2 POC ABG pO2 Sodium 147 H Potassium Chloride 109.5 H Carbon Dioxide BUN 67 H Creatinine 2.4 H Glucose 120 H POC Glucose 111 H 111 H Uric Acid Calcium 8.2 L Phosphorus 4.60 H Magnesium Lactate Dehydrogenase Total Creatine Kinase C-Reactive Protein Serum Total Protein Albumin Jmoza-2-Rctrhmjzn PEP Interpretation Urine WBC (Auto) Urine Creatinine Urine Total Protein
[2017-08-26] MEDS: APRESOLINE PO SCH ×2 (11:59→22:31)
[2017-08-26] MEDS: RENVELA PO SCH ×3 (11:59→22:50)
[2017-08-26] MEDS: PEPCID PO SCH (12:00)
[2017-08-27] MEDS: DUONEB *Not for PRN Use IH SCH ×4 (01:28→19:59)
[2017-08-27] MEDS: LOPRESSOR PO SCH ×3 (05:19→21:22)
[2017-08-27] MEDS: BROVANA NEBU IH SCH ×2 (07:29→19:59)
[2017-08-27 07:55] LABS: Hematocrit 43.5 % (35.5-45.6); Hemoglobin 14.2 gm/dl (11.8-15.2); Mean Corpuscular HGB Conc 33 % (32-34); Mean Corpuscular Hemoglobin 28 pg (28-32); Mean Corpuscular Volume 85 fl (84-94); Platelet Count 228 K/mm3 (140-440); Red Blood Count 5.12 M/mm3 (3.65-5.03); Red Cell Distribution Width 14.6 % (13.2-15.2)
[2017-08-27 08:04] LABS: BUN/Creatinine Ratio 29.5; Calcium 7.9 mg/dL (8.4-10.2); Chloride 98.6 mmol/L (98-107); Potassium 4.5 mmol/L (3.6-5.0)
[2017-08-27 08:14] LABS: White Blood Count 22.1 K/mm3 (4.5-11.0)
--- NOTE | 2017-08-27 09:29 | Progress Note ---
Assessment and Plan - Patient Problems (1) Acute respiratory failure with hypoxia Current Visit: Yes Status: Acute Plan to address problem: S/P intubation (2) Acute renal failure due to tubular necrosis Current Visit: Yes Status: Acute Plan to address problem: Renal function reviewed. Current serum creatinine down to 2.0 today from 2.4 yesterday Non-oliguric ARF likely secondary to Ischemic Acute Tubular necrosis secondary to Sepsis Hypernatremia, resolving- decrease free water flushes to 200 ml every 4 hours On D5W@ 125 ml/hr Obtain daily weights Renally dose medications Avoid Nephrotoxic agents Continue to monitor renal function closely (3) SIRS (systemic inflammatory response syndrome) Current Visit: Yes Status: Acute Plan to address problem: On IV Solumedrol and Levaquin (4) Hyperphosphatemia Current Visit: Yes Status: Acute Plan to address problem: Controlled on Renvela 1 tab 800 mg TID Subjective Date of service: 08/27/17 Principal diagnosis: Acute Hypoxemic Respiratory Failure; GUZMAN; Morbid Obesity Interval history: Patient awake and alert. States he is doing ok. Objective - Vital Signs Vital signs: Vital Signs - 12hr 08/26/17 08/26/17 08/26/17 22:02 22:31 22:33 Temperature 99.1 F Pulse Rate 96 H 96 H Pulse Rate [ Anterior Bilateral Throughout] Respiratory 18 Rate Respiratory Rate [Anterior Bilateral Throughout] Blood Pressure 134/95 134/95 134/95 O2 Sat by Pulse Oximetry 08/27/17 08/27/17 08/27/17 05:19 07:29 07:39 Temperature Pulse Rate 92 H Pulse Rate [ 72 67 Anterior Bilateral Throughout] Respiratory Rate Respiratory 18 18 Rate [Anterior Bilateral Throughout] Blood Pressure 160/90 O2 Sat by Pulse Oximetry 08/27/17 08/27/17 07:53 09:04 Temperature 99.7 F H Pulse Rate 85 Pulse Rate [ Anterior Bilateral Throughout] Respiratory 18 Rate Respiratory Rate [Anterior Bilateral Throughout] Blood Pressure 112/69 O2 Sat by Pulse 98 93 Oximetry - General Appearance General appearance: well-developed, appears stated age EENT: ATNC, PERRL, hearing intact, vision intact Neck: no JVD, supple Respiratory: Present: Decreased Breath Sounds Cardiology: regular, S1S2 Gastrointestinal: normoactive bowel sounds Integumentary: warm and dry Neurologic: alert and oriented x3 Musculoskeletal: other (mild edema to BLE) Psychiatric: cooperative - Lab 08/27/17 07:27 08/27/17 07:27 Most recent lab results Calcium 7.9 mg/dL (8.4-10.2) L 08/27/17 07:27 Phosphorus 4.60 mg/dL (2.5-4.5) H 08/26/17 05:03 Magnesium 2.80 mg/dL (1.7-2.3) H 08/27/17 05:04 Urine Creatinine 436.1 mg/dL (0.1-20.0) H 08/19/17 13:40 Urine Sodium 29 mEq/L 08/19/17 13:40 Urine Total Protein 140 mg/dL (5-11.8) H 08/19/17 13:40
[2017-08-27 09:31] LABS: Basophils % (Manual) 0 % (0.0-1.8); Blastocytes % (Manual) 0 %; Eosinophils % (Manual) 0 % (0.0-4.3)
[2017-08-27 09:33] LABS: Diff Status Complete; RBC Morphology Normal
[2017-08-27] MEDS: RENVELA PO SCH ×3 (09:38→20:50)
[2017-08-27] MEDS: PEPCID PO SCH (09:38)
[2017-08-27] MEDS: LOVENOX SUB-Q SCH (09:39)
[2017-08-27] MEDS: APRESOLINE PO SCH ×2 (09:40→21:22)
--- NOTE | 2017-08-27 10:22 | Progress Note ---
Assessment and Plan Assessment and plan: 47-year-old man who was admitted for asthma exacerbation, who decompensated and had to be intubated Acute hypoxic resp faillure due to asthma exacerbation, on mechanical ventilator > 96 hours. He is still intubated on ventilator. Pulmonology following. Continue oxygen supplementation Asthma exacerbation. On solumedrol, levaquin, Duoneb Hyperkalemia. Received Kayexalate, now improved Sepsis/pneumonitis: Continue antibiotics Acute Kidney Injury due to Acute tubular necrosis. Renal Function is now improving Hypernatremia/Dehydration/Free water deficit Continue to Replace free water deficits with D5 water History Interval history: He states that shortness of breath is improving Hospitalist Physical - Physical exam Narrative exam: General.: Appears well, no distress, nontoxic HEENT: Moist mucous membranes, extraocular muscles intact, no lymphadenopathy Neck: supple Cardiac: S1-S2 heard Lungs: clear to auscultation bilaterally Abdomen: soft , nontender, nondistended, bowel sounds positive Extremities: no edema clubbing or cyanosis Skin: no rash or lesions Neurologic: no gross focal deficits Psych: appropriate behavior, appropriate mood, corporative, judgment intact - Constitutional Vitals: Temp Pulse Resp BP Pulse Ox 99.7 F H 85 18 112/69 93 08/27/17 09:04 08/27/17 09:04 08/27/17 09:04 08/27/17 09:40 08/27/17 09:04 General appearance: Present: no acute distress Results - Labs CBC & Chem 7: 08/27/17 07:27 08/27/17 07:27 Labs: Laboratory Last Values WBC 22.1 K/mm3 (4.5-11.0) H 08/27/17 07:27 RBC 5.12 M/mm3 (3.65-5.03) H 08/27/17 07:27 Hgb 14.2 gm/dl (11.8-15.2) 08/27/17 07:27 Hct 43.5 % (35.5-45.6) 08/27/17 07:27 MCV 85 fl (84-94) 08/27/17 07:27 MCH 28 pg (28-32) 08/27/17 07:27 MCHC 33 % (32-34) 08/27/17 07:27 RDW 14.6 % (13.2-15.2) 08/27/17 07:27 Plt Count 228 K/mm3 (140-440) 08/27/17 07:27 Lymph % (Auto) 4.6 % (13.4-35.0) L 08/25/17 06:43 [place] % (Auto) 6.5 % (0.0-7.3) 08/25/17 06:43 Eos % (Auto) 0.0 % (0.0-4.3) 08/25/17 06:43 Baso % (Auto) 0.2 % (0.0-1.8) 08/25/17 06:43 Lymph # 0.9 K/mm3 (1.2-5.4) L 08/25/17 06:43 [place] # 1.2 K/mm3 (0.0-0.8) H 08/25/17 06:43 Eos # 0.0 K/mm3 (0.0-0.4) 08/25/17 06:43 Baso # 0.0 K/mm3 (0.0-0.1) 08/25/17 06:43 Add Manual Diff Complete 08/27/17 07:27 Total Counted 100 08/27/17 07:27 Seg Neutrophils % Primary Clinician 08/27/17 07:27 Seg Neuts % (Manual) 95.0 % (40.0-70.0) H 08/27/17 07:27 Band Neutrophils % 0 % 08/27/17 07:27 Lymphocytes % (Manual) 2.0 % (13.4-35.0) L 08/27/17 07:27 Reactive Lymphs % (Man) 0 % 08/27/17 07:27 Monocytes % (Manual) 3.0 % (0.0-7.3) 08/27/17 07:27 Eosinophils % (Manual) 0 % (0.0-4.3) 08/27/17 07:27 Basophils % (Manual) 0 % (0.0-1.8) 08/27/17 07:27 Metamyelocytes % 0 % 08/27/17 07:27 Myelocytes % 0 % 08/27/17 07:27 Promyelocytes % 0 % 08/27/17 07:27 Blast Cells % 0 % 08/27/17 07:27 Nucleated RBC % Not Reportable 08/27/17 07:27 Seg Neutrophils # 16.9 K/mm3 (1.8-7.7) H 08/25/17 06:43 Seg Neutrophils # Man 21.0 K/mm3 (1.8-7.7) H 08/27/17 07:27 Band Neutrophils # 0.0 K/mm3 08/27/17 07:27 Lymphocytes # (Manual) 0.4 K/mm3 (1.2-5.4) L 08/27/17 07:27 Abs React Lymphs (Man) 0.0 K/mm3 08/27/17 07:27 Monocytes # (Manual) 0.7 K/mm3 (0.0-0.8) 08/27/17 07:27 Eosinophils # (Manual) 0.0 K/mm3 (0.0-0.4) 08/27/17 07:27 Basophils # (Manual) 0.0 K/mm3 (0.0-0.1) 08/27/17 07:27 Metamyelocytes # 0.0 K/mm3 08/27/17 07:27 Myelocytes # 0.0 K/mm3 08/27/17 07:27 Promyelocytes # 0.0 K/mm3 08/27/17 07:27 Blast Cells # 0.0 K/mm3 08/27/17 07:27 WBC Morphology Not Reportable 08/27/17 07:27 Hypersegmented Neuts Not Reportable 08/27/17 07:27 Hyposegmented Neuts Not Reportable 08/27/17 07:27 Hypogranular Neuts Not Reportable 08/27/17 07:27 Smudge Cells Not Reportable 08/27/17 07:27 Toxic Granulation Not Reportable 08/27/17 07:27 Toxic Vacuolation Not Reportable 08/27/17 07:27 Dohle Bodies Not Reportable 08/27/17 07:27 Pelger-Huet Anomaly Not Reportable 08/27/17 07:27 Merry Rods Not Reportable 08/27/17 07:27 Platelet Estimate Appears normal 08/27/17 07:27 Clumped Platelets Not Reportable 08/27/17 07:27 Plt Clumps, EDTA Not Reportable 08/27/17 07:27 Large Platelets Not Reportable 08/27/17 07:27 Giant Platelets Not Reportable 08/27/17 07:27 Platelet Satelliting Not Reportable 08/27/17 07:27 Plt Morphology Comment Not Reportable 08/27/17 07:27 RBC Morphology Normal 08/27/17 07:27 Dimorphic RBCs Not Reportable 08/27/17 07:27 Polychromasia Not Reportable 08/27/17 07:27 Hypochromasia Not Reportable 08/27/17 07:27 Poikilocytosis Not Reportable 08/27/17 07:27 Anisocytosis Not Reportable 08/27/17 07:27 Microcytosis Not Reportable 08/27/17 07:27 Macrocytosis Not Reportable 08/27/17 07:27 Spherocytes Not Reportable 08/27/17 07:27 Pappenheimer Bodies Not Reportable 08/27/17 07:27 Sickle Cells Not Reportable 08/27/17 07:27 Target Cells Not Reportable 08/27/17 07:27 Tear Drop Cells Not Reportable 08/27/17 07:27 Ovalocytes Not Reportable 08/27/17 07:27 Helmet Cells Not Reportable 08/27/17 07:27 Irene-Tasley Bodies Not Reportable 08/27/17 07:27 [place] Rings Not Reportable 08/27/17 07:27 [place] Cells Not Reportable 08/27/17 07:27 Bite Cells Not Reportable 08/27/17 07:27 Crenated Cell Not Reportable 08/27/17 07:27 Elliptocytes Not Reportable 08/27/17 07:27 Acanthocytes (Spur) Not Reportable 08/27/17 07:27 Rouleaux Not Reportable 08/27/17 07:27 Hemoglobin C Crystals Not Reportable 08/27/17 07:27 Schistocytes Not Reportable 08/27/17 07:27 Malaria parasites Not Reportable 08/27/17 07:27 Sudhakar Bodies Not Reportable 08/27/17 07:27 Haptoglobin 208 mg/dL (43-212) 08/20/17 10:34 Hem Pathologist Commnt No 08/27/17 07:27 D-Dimer 698.53 ng/mlDDU (0-234) H 08/19/17 15:03 POC ABG pH 7.421 (7.35-7.45) 08/25/17 15:05 POC ABG pCO2 40.9 (35-45) 08/25/17 15:05 POC ABG pO2 129 (80-105) H 08/25/17 15:05 POC ABG HCO3 26.6 08/25/17 15:05 POC ABG Total CO2 28 08/25/17 15:05 POC ABG O2 Sat 99 08/25/17 15:05 POC ABG Base Excess 2 08/25/17 15:05 FiO2 40 % 08/25/17 15:05 Sodium 137 mmol/L (137-145) D 08/27/17 07:27 Potassium 4.5 mmol/L (3.6-5.0) 08/27/17 07:27 Chloride 98.6 mmol/L (98-107) 08/27/17 07:27 Carbon Dioxide 24 mmol/L (22-30) 08/27/17 07:27 Anion Gap 19 mmol/L 08/27/17 07:27 BUN 59 mg/dL (9-20) H 08/27/17 07:27 Creatinine 2.0 mg/dL (0.8-1.5) H 08/27/17 07:27 Estimated GFR 44 ml/min 08/27/17 07:27 BUN/Creatinine Ratio 29.50 % 08/27/17 07:27 Glucose 101 mg/dL (75-100) H 08/27/17 07:27 POC Glucose 111 (70-105) H 08/26/17 05:40 Osmolality 319 Mosm/kg 08/20/17 04:04 Lactic Acid 1.60 mmol/L (0.7-2.0) 08/25/17 11:53 Uric Acid 9.7 mg/dL (3.5-7.6) H 08/20/17 10:34 Calcium 7.9 mg/dL (8.4-10.2) L 08/27/17 07:27 Phosphorus 4.60 mg/dL (2.5-4.5) H 08/26/17 05:03 Magnesium 2.80 mg/dL (1.7-2.3) H 08/27/17 05:04 Total Bilirubin 0.30 mg/dL (0.1-1.2) 08/20/17 04:04 AST 30 units/L (5-40) 08/20/17 04:04 ALT 19 units/L (7-56) 08/20/17 04:04 Alkaline Phosphatase 67 units/L (35-129) 08/20/17 04:04 Lactate Dehydrogenase 250 units/L (91-180) H 08/20/17 10:34 Total Creatine Kinase 623 units/L (55-170) H 08/20/17 10:34 Troponin T < 0.010 ng/mL (0.00-0.029) 08/18/17 08:32 C-Reactive Protein 0.70 mg/dL (0.00-1.30) 08/25/17 11:53 NT-Pro-B Natriuret Pep 18.05 pg/mL (0-450) 08/18/17 08:32 Serum Total Protein 5.8 g/dL (6.1-8.1) L 08/22/17 10:57 Total Protein 7.2 g/dL (6.3-8.2) 08/20/17 04:04 Albumin 3.2 g/dL (3.8-4.8) L 08/22/17 10:57 Albumin/Globulin Ratio 1.3 % 08/20/17 04:04 Kszef-6-Wdycemjvy 0.4 g/dL (0.2-0.3) H 08/22/17 10:57 Vvpdi-8-Rdsjydyue 0.8 g/dL (0.5-0.9) 08/22/17 10:57 Beta Globulins 0.2 g/dL (0.2-0.5) 08/22/17 10:57 Gamma Globulins 0.8 g/dL (0.8-1.7) 08/22/17 10:57 Abnorm Protein Band 1 see below 08/22/17 10:57 PEP Interpretation see below H 08/22/17 10:57 Urine Color Yellow (Yellow) 08/18/17 17:26 Urine Turbidity Clear (Clear) 08/18/17 17:26 Urine pH 5.0 (5.0-7.0) 08/18/17 17:26 Ur Specific [place] 1.026 (1.003-1.030) 08/18/17 17:26 Urine Protein >500 mg/dL (Negative) 08/18/17 17:26 Urine Glucose (UA) 50 mg/dL (Negative) 08/18/17 17:26 Urine Ketones Tr mg/dL (Negative) 08/18/17 17:26 Urine Blood Sm (Negative) 08/18/17 17:26 Urine Nitrite Neg (Negative) 08/18/17 17:26 Urine Bilirubin Neg (Negative) 08/18/17 17:26 Urine Urobilinogen < 2.0 mg/dL (<2.0) 08/18/17 17:26 Ur Leukocyte Esterase Neg (Negative) 08/18/17 17:26 Urine WBC (Auto) 9.0 /HPF (0.0-6.0) H 08/18/17 17:26 Urine RBC (Auto) 5.0 /HPF (0.0-6.0) 08/18/17 17:26 U Epithel Cells (Auto) < 1.0 /HPF (0-13.0) 08/18/17 17: Urine Mucus Few /HPF 08/18/17 17:26 Urine Eosinophils None seen (None Seen) 08/19/17 13:40 Urine Osmolality 542 Mosm/kg 08/19/17 13:40 Urine Creatinine 436.1 mg/dL (0.1-20.0) H 08/19/17 13:40 Protein/Creatinin Ratio 0.33 08/19/17 13:40 Urine Sodium 29 mEq/L 08/19/17 13:40 Urine Total Protein 140 mg/dL (5-11.8) H 08/19/17 13:40 MICAELA Screen Negative (Negative) 08/21/17 10:29 Proteinase 3 (PR3) Ab <1.0 AI (<1.0) 08/21/17 10:29 Myeloperoxidase Ab <1.0 AI (<1.0) 08/21/17 10:29 Glomerular Base Mem IgG <1.0 AI (<1.0) 08/21/17 10:29 Complement C3 136 mg/dL (90-180) 08/21/17 10:29 Complement C4 32 mg/dL (16-47) 08/21/17 10:29 Hep Bs Antigen Non-reactive (Negative) 08/21/17 10:29 Hepatitis C Antibody Non-reactive (NonReactive) 08/21/17 10:29
--- NOTE | 2017-08-27 12:28 | Progress Note ---
Subjective Date of service: 08/27/17 Principal diagnosis: Acute Hypoxemic Respiratory Failure; GUZMAN; Morbid Obesity Interval history: Seen and examined at bedside; 24 hour events reviewed; nursing and respiratory care staff consulted; no adverse overnight events reported to me; Objective Vital Signs - 12hr 08/27/17 08/27/17 08/27/17 05:19 07:29 07:39 Temperature Pulse Rate 92 H Pulse Rate [ 72 67 Anterior Bilateral Throughout] Respiratory Rate Respiratory 18 18 Rate [Anterior Bilateral Throughout] Blood Pressure 160/90 O2 Sat by Pulse Oximetry 08/27/17 08/27/17 08/27/17 07:53 09:04 09:40 Temperature 99.7 F H Pulse Rate 85 Pulse Rate [ Anterior Bilateral Throughout] Respiratory 18 Rate Respiratory Rate [Anterior Bilateral Throughout] Blood Pressure 112/69 112/69 O2 Sat by Pulse 98 93 Oximetry Constitutional: no acute distress, lethargic Eyes: non-icteric ENT: oropharynx moist Neck: supple, no lymphadenopathy, other (large neck circumfrence; possible ANGIE) Effort: mildly labored Ascultation: Bilateral: clear, diminished breath sounds, wheezes (expiratory), rales, rhonchi (scant in bases), other (prolonged expiration) Cardiovascular: regular rate and rhythm Gastrointestinal: normoactive bowel sounds, soft, non-tender, non-distended Integumentary: normal Extremities: no cyanosis, no edema, pulses normal, no ischemia or petechiae Neurologic: normal mental status, non-focal exam, pupils equal and round, motor strength normal and Psychiatric: mood appropriate, affect normal CBC and BMP: 08/27/17 07:27 08/27/17 07:27 ABG, PT/INR, D-dimer: ABG POC ABG pH 7.421 (7.35-7.45) 08/25/17 15:05 POC ABG pCO2 40.9 (35-45) 08/25/17 15:05 POC ABG pO2 129 (80-105) H 08/25/17 15:05 POC ABG HCO3 26.6 08/25/17 15:05 POC ABG Total CO2 28 08/25/17 15:05 POC ABG O2 Sat 99 08/25/17 15:05 PT/INR, D-dimer D-Dimer 698.53 ng/mlDDU (0-234) H 08/19/17 15:03 Abnormal lab findings: Abnormal Labs 08/18/17 08/18/17 08/19/17 16:54 17:26 04:37 WBC 18.1 H RBC Hgb RDW Lymph % (Auto) 6.1 L Rice % (Auto) Lymph # 1.1 L Rice # Seg Neutrophils % 89.7 H Seg Neuts % (Manual) Lymphocytes % (Manual) Nucleated RBC % Seg Neutrophils # 16.2 H Seg Neutrophils # Man Lymphocytes # (Manual) Monocytes # (Manual) D-Dimer POC ABG pH 7.231 L POC ABG pCO2 63.3 H POC ABG pO2 Sodium Potassium Chloride Carbon Dioxide BUN Creatinine Glucose POC Glucose Uric Acid Calcium Phosphorus Magnesium Lactate Dehydrogenase Total Creatine Kinase C-Reactive Protein Serum Total Protein Albumin Sjlti-1-Bwckqhleh PEP Interpretation Urine WBC (Auto) 9.0 H Urine Creatinine Urine Total Protein 08/19/17 08/19/17 08/19/17 04:37 05:37 13:40 WBC RBC Hgb RDW Lymph % (Auto) Rice % (Auto) Lymph # Rice # Seg Neutrophils % Seg Neuts % (Manual) Lymphocytes % (Manual) Nucleated RBC % Seg Neutrophils # Seg Neutrophils # Man Lymphocytes # (Manual) Monocytes # (Manual) D-Dimer POC ABG pH 7.320 L POC ABG pCO2 POC ABG pO2 Sodium Potassium Chloride Carbon Dioxide BUN 22 H Creatinine 2.9 H D Glucose 124 H POC Glucose Uric Acid Calcium Phosphorus 1.00 L Magnesium Lactate Dehydrogenase Total Creatine Kinase C-Reactive Protein Serum Total Protein Albumin 3.5 L Jicpi-7-Upsdwlbpg PEP Interpretation Urine WBC (Auto) Urine Creatinine 430.8 H Urine Total Protein 144 H 08/19/17 08/19/17 08/19/17 13:40 15:03 18:43 WBC RBC Hgb RDW Lymph % (Auto) Rice % (Auto) Lymph # Rice # Seg Neutrophils % Seg Neuts % (Manual) Lymphocytes % (Manual) Nucleated RBC % Seg Neutrophils # Seg Neutrophils # Man Lymphocytes # (Manual) Monocytes # (Manual) D-Dimer 698.53 H POC ABG pH POC ABG pCO2 POC ABG pO2 Sodium Potassium Chloride Carbon Dioxide BUN Creatinine Glucose POC Glucose Uric Acid Calcium Phosphorus Magnesium Lactate Dehydrogenase Total Creatine Kinase C-Reactive Protein 3.30 H Serum Total Protein Albumin Lmcih-2-Yqwreuhsn PEP Interpretation Urine WBC (Auto) Urine Creatinine 436.1 H Urine Total Protein 140 H 08/20/17 08/20/17 08/20/17 04:04 04:04 05:18 WBC 26.5 H RBC Hgb RDW Lymph % (Auto) Rice % (Auto) Lymph # Rice # Seg Neutrophils % Seg Neuts % (Manual) Lymphocytes % (Manual) 12.0 L Nucleated RBC % Seg Neutrophils # Seg Neutrophils # Man 15.9 H Lymphocytes # (Manual) Monocytes # (Manual) 1.3 H D-Dimer POC ABG pH 7.263 L POC ABG pCO2 48.7 H POC ABG pO2 Sodium Potassium 6.1 H* D Chloride Carbon Dioxide 20 L BUN 44 H Creatinine 4.3 H Glucose 111 H POC Glucose Uric Acid Calcium Phosphorus 7.30 H D Magnesium Lactate Dehydrogenase Total Creatine Kinase C-Reactive Protein Serum Total Protein Albumin Nsozk-2-Pmsatrvit PEP Interpretation Urine WBC (Auto) Urine Creatinine Urine Total Protein 08/20/17 08/20/17 08/20/17 08:51 10:02 10:34 WBC RBC Hgb RDW Lymph % (Auto) Rice % (Auto) Lymph # Rice # Seg Neutrophils % Seg Neuts % (Manual) Lymphocytes % (Manual) Nucleated RBC % Seg Neutrophils # Seg Neutrophils # Man Lymphocytes # (Manual) Monocytes # (Manual) D-Dimer POC ABG pH 7.232 L POC ABG pCO2 54.1 H POC ABG pO2 75 L Sodium Potassium Chloride Carbon Dioxide BUN 52 H Creatinine 4.5 H Glucose 118 H POC Glucose 110 H Uric Acid Calcium 8.2 L Phosphorus Magnesium Lactate Dehydrogenase Total Creatine Kinase C-Reactive Protein Serum Total Protein Albumin Mrzfa-6-Dpdssxvve PEP Interpretation Urine WBC (Auto) Urine Creatinine Urine Total Protein 08/20/17 08/20/17 08/20/17 10:34 22:12 23:49 WBC RBC Hgb RDW Lymph % (Auto) Rice % (Auto) Lymph # Rice # Seg Neutrophils % Seg Neuts % (Manual) Lymphocytes % (Manual) Nucleated RBC % Seg Neutrophils # Seg Neutrophils # Man Lymphocytes # (Manual) Monocytes # (Manual) D-Dimer POC ABG pH 7.314 L POC ABG pCO2 45.8 H POC ABG pO2 114 H Sodium Potassium Chloride Carbon Dioxide BUN Creatinine Glucose POC Glucose 119 H Uric Acid 9.7 H Calcium Phosphorus Magnesium Lactate Dehydrogenase 250 H Total Creatine Kinase 623 H C-Reactive Protein Serum Total Protein Albumin Fhyue-5-Uzjuapdcn PEP Interpretation Urine WBC (Auto) Urine Creatinine Urine Total Protein 08/21/17 08/21/17 08/21/17 04:57 05:55 06:25 WBC 14.2 H RBC Hgb 11.7 L RDW Lymph % (Auto) Rice % (Auto) Lymph # Rice # Seg Neutrophils % Seg Neuts % (Manual) Lymphocytes % (Manual) 10.0 L Nucleated RBC % Seg Neutrophils # Seg Neutrophils # Man 8.8 H Lymphocytes # (Manual) Monocytes # (Manual) D-Dimer POC ABG pH 7.321 L POC ABG pCO2 46.8 H POC ABG pO2 115 H Sodium Potassium Chloride Carbon Dioxide BUN Creatinine Glucose POC Glucose 134 H Uric Acid Calcium Phosphorus Magnesium Lactate Dehydrogenase Total Creatine Kinase C-Reactive Protein Serum Total Protein Albumin Lxpzl-0-Vwyyklbcr PEP Interpretation Urine WBC (Auto) Urine Creatinine Urine Total Protein 08/21/17 08/21/17 08/21/17 06:25 06:34 10:29 WBC RBC Hgb RDW Lymph % (Auto) Rice % (Auto) Lymph # Rice # Seg Neutrophils % Seg Neuts % (Manual) Lymphocytes % (Manual) Nucleated RBC % Seg Neutrophils # Seg Neutrophils # Man Lymphocytes # (Manual) Monocytes # (Manual) D-Dimer POC ABG pH POC ABG pCO2 POC ABG pO2 Sodium 147 H Potassium Chloride 110.3 H Carbon Dioxide BUN 69 H Creatinine 4.1 H Glucose 115 H POC Glucose Uric Acid Calcium 8.0 L Phosphorus 5.00 H D Magnesium 2.60 H Lactate Dehydrogenase Total Creatine Kinase C-Reactive Protein Serum Total Protein Albumin Mlzeg-8-Sxelscvpy PEP Interpretation Urine WBC (Auto) Urine Creatinine Urine Total Protein 08/21/17 08/21/17 08/22/17 11:41 17:03 04:54 WBC RBC Hgb RDW Lymph % (Auto) Rice % (Auto) Lymph # Rice # Seg Neutrophils % Seg Neuts % (Manual) Lymphocytes % (Manual) Nucleated RBC % Seg Neutrophils # Seg Neutrophils # Man Lymphocytes # (Manual) Monocytes # (Manual) D-Dimer POC ABG pH 7.301 L POC ABG pCO2 55.6 H POC ABG pO2 Sodium Potassium Chloride Carbon Dioxide BUN Creatinine Glucose POC Glucose 128 H 115 H Uric Acid Calcium Phosphorus Magnesium Lactate Dehydrogenase Total Creatine Kinase C-Reactive Protein Serum Total Protein Albumin Rnaaj-0-Xczsklxmu PEP Interpretation Urine WBC (Auto) Urine Creatinine Urine Total Protein 08/22/17 08/22/17 08/22/17 05:10 05:27 05:27 WBC 17.5 H RBC Hgb RDW 15.3 H Lymph % (Auto) Rice % (Auto) Lymph # Rice # Seg Neutrophils % Seg Neuts % (Manual) 71.0 H Lymphocytes % (Manual) 11.0 L Nucleated RBC % Seg Neutrophils # Seg Neutrophils # Man 12.4 H Lymphocytes # (Manual) Monocytes # (Manual) D-Dimer POC ABG pH POC ABG pCO2 POC ABG pO2 Sodium 149 H Potassium 5.1 H Chloride 113.1 H Carbon Dioxide BUN 79 H Creatinine 3.8 H Glucose 124 H POC Glucose 127 H Uric Acid Calcium 7.9 L Phosphorus 5.90 H Magnesium Lactate Dehydrogenase Total Creatine Kinase C-Reactive Protein Serum Total Protein Albumin Nvkga-5-Wfuwgegtl PEP Interpretation Urine WBC (Auto) Urine Creatinine Urine Total Protein 08/22/17 08/22/17 08/22/17 10:57 12:21 16:53 WBC RBC Hgb RDW Lymph % (Auto) Rice % (Auto) Lymph # Rice # Seg Neutrophils % Seg Neuts % (Manual) Lymphocytes % (Manual) Nucleated RBC % Seg Neutrophils # Seg Neutrophils # Man Lymphocytes # (Manual) Monocytes # (Manual) D-Dimer POC ABG pH POC ABG pCO2 POC ABG pO2 Sodium Potassium Chloride Carbon Dioxide BUN Creatinine Glucose POC Glucose 115 H 109 H Uric Acid Calcium Phosphorus Magnesium Lactate Dehydrogenase Total Creatine Kinase C-Reactive Protein Serum Total Protein 5.8 L Albumin 3.2 L Qecbg-4-Wocxrysbn 0.4 H PEP Interpretation see below H Urine WBC (Auto) Urine Creatinine Urine Total Protein 08/22/17 08/23/17 08/23/17 17:40 01:22 04:22 WBC 16.8 H RBC Hgb RDW Lymph % (Auto) Rice % (Auto) Lymph # Rice # Seg Neutrophils % Seg Neuts % (Manual) 92.0 H Lymphocytes % (Manual) 7.0 L Nucleated RBC % 1.0 H Seg Neutrophils # Seg Neutrophils # Man 15.5 H Lymphocytes # (Manual) Monocytes # (Manual) D-Dimer POC ABG pH 7.298 L POC ABG pCO2 51.3 H POC ABG pO2 Sodium Potassium Chloride Carbon Dioxide BUN Creatinine Glucose POC Glucose 147 H Uric Acid Calcium Phosphorus Magnesium Lactate Dehydrogenase Total Creatine Kinase C-Reactive Protein Serum Total Protein Albumin Uxgon-7-Rcaxqpodq PEP Interpretation Urine WBC (Auto) Urine Creatinine Urine Total Protein 08/23/17 08/23/17 08/23/17 04:22 04:22 05:07 WBC RBC Hgb RDW Lymph % (Auto) Rice % (Auto) Lymph # Rice # Seg Neutrophils % Seg Neuts % (Manual) Lymphocytes % (Manual) Nucleated RBC % Seg Neutrophils # Seg Neutrophils # Man Lymphocytes # (Manual) Monocytes # (Manual) D-Dimer POC ABG pH POC ABG pCO2 POC ABG pO2 Sodium 148 H Potassium Chloride 110.9 H Carbon Dioxide 21 L BUN 85 H Creatinine 3.6 H Glucose 148 H POC Glucose 134 H Uric Acid Calcium Phosphorus Magnesium 3.40 H Lactate Dehydrogenase Total Creatine Kinase C-Reactive Protein Serum Total Protein Albumin Wwhxb-6-Jkfyfyzkd PEP Interpretation Urine WBC (Auto) Urine Creatinine Urine Total Protein 08/23/17 08/23/17 08/23/17 11:36 17:20 23:18 WBC RBC Hgb RDW Lymph % (Auto) Rice % (Auto) Lymph # Rice # Seg Neutrophils % Seg Neuts % (Manual) Lymphocytes % (Manual) Nucleated RBC % Seg Neutrophils # Seg Neutrophils # Man Lymphocytes # (Manual) Monocytes # (Manual) D-Dimer POC ABG pH POC ABG pCO2 POC ABG pO2 Sodium Potassium Chloride Carbon Dioxide BUN Creatinine Glucose POC Glucose 124 H 140 H 133 H Uric Acid Calcium Phosphorus Magnesium Lactate Dehydrogenase Total Creatine Kinase C-Reactive Protein Serum Total Protein Albumin Opftx-6-Pfvjztogs PEP Interpretation Urine WBC (Auto) Urine Creatinine Urine Total Protein 08/24/17 08/24/17 08/24/17 03:24 05:09 06:42 WBC 15.9 H RBC Hgb RDW Lymph % (Auto) 4.6 L Rice % (Auto) 7.6 H Lymph # 0.7 L Rice # 1.2 H Seg Neutrophils % 87.7 H Seg Neuts % (Manual) Lymphocytes % (Manual) Nucleated RBC % Seg Neutrophils # 13.9 H Seg Neutrophils # Man Lymphocytes # (Manual) Monocytes # (Manual) D-Dimer POC ABG pH 7.461 H POC ABG pCO2 POC ABG pO2 Sodium Potassium Chloride Carbon Dioxide BUN Creatinine Glucose POC Glucose 122 H Uric Acid Calcium Phosphorus Magnesium Lactate Dehydrogenase Total Creatine Kinase C-Reactive Protein Serum Total Protein Albumin Nlkhw-8-Pkevatmrq PEP Interpretation Urine WBC (Auto) Urine Creatinine Urine Total Protein 08/24/17 08/24/17 08/24/17 06:42 12:26 15:51 WBC RBC Hgb RDW Lymph % (Auto) Rice % (Auto) Lymph # Rice # Seg Neutrophils % Seg Neuts % (Manual) Lymphocytes % (Manual) Nucleated RBC % Seg Neutrophils # Seg Neutrophils # Man Lymphocytes # (Manual) Monocytes # (Manual) D-Dimer POC ABG pH POC ABG pCO2 POC ABG pO2 114 H Sodium 152 H Potassium Chloride 114.4 H Carbon Dioxide BUN 85 H Creatinine 2.9 H Glucose 123 H POC Glucose 133 H Uric Acid Calcium Phosphorus Magnesium Lactate Dehydrogenase Total Creatine Kinase C-Reactive Protein Serum Total Protein Albumin Ssuyh-6-Jlwwxnfip PEP Interpretation Urine WBC (Auto) Urine Creatinine Urine Total Protein 08/24/17 08/24/17 08/25/17 17:13 23:44 06:31 WBC RBC Hgb RDW Lymph % (Auto) Rice % (Auto) Lymph # Rice # Seg Neutrophils % Seg Neuts % (Manual) Lymphocytes % (Manual) Nucleated RBC % Seg Neutrophils # Seg Neutrophils # Man Lymphocytes # (Manual) Monocytes # (Manual) D-Dimer POC ABG pH POC ABG pCO2 POC ABG pO2 Sodium Potassium Chloride Carbon Dioxide BUN Creatinine Glucose POC Glucose 116 H 112 H 113 H Uric Acid Calcium Phosphorus Magnesium Lactate Dehydrogenase Total Creatine Kinase C-Reactive Protein Serum Total Protein Albumin Xrwuy-1-Cearedxms PEP Interpretation Urine WBC (Auto) Urine Creatinine Urine Total Protein 08/25/17 08/25/17 08/25/17 06:43 06:43 06:43 WBC 19.1 H RBC Hgb RDW Lymph % (Auto) 4.6 L Rice % (Auto) Lymph # 0.9 L Rice # 1.2 H Seg Neutrophils % 88.7 H Seg Neuts % (Manual) Lymphocytes % (Manual) Nucleated RBC % Seg Neutrophils # 16.9 H Seg Neutrophils # Man Lymphocytes # (Manual) Monocytes # (Manual) D-Dimer POC ABG pH POC ABG pCO2 POC ABG pO2 Sodium 151 H Potassium Chloride 114.1 H Carbon Dioxide BUN 80 H Creatinine 2.5 H Glucose 116 H POC Glucose Uric Acid Calcium Phosphorus Magnesium 3.20 H Lactate Dehydrogenase Total Creatine Kinase C-Reactive Protein Serum Total Protein Albumin Zspnq-0-Zsftpddic PEP Interpretation Urine WBC (Auto) Urine Creatinine Urine Total Protein 08/25/17 08/25/17 08/25/17 11:30 15:05 17:54 WBC RBC Hgb RDW Lymph % (Auto) Rice % (Auto) Lymph # Rice # Seg Neutrophils % Seg Neuts % (Manual) Lymphocytes % (Manual) Nucleated RBC % Seg Neutrophils # Seg Neutrophils # Man Lymphocytes # (Manual) Monocytes # (Manual) D-Dimer POC ABG pH POC ABG pCO2 POC ABG pO2 129 H Sodium Potassium Chloride Carbon Dioxide BUN Creatinine Glucose POC Glucose 120 H 124 H Uric Acid Calcium Phosphorus Magnesium Lactate Dehydrogenase Total Creatine Kinase C-Reactive Protein Serum Total Protein Albumin Oopjc-4-Ikfedolkb PEP Interpretation Urine WBC (Auto) Urine Creatinine Urine Total Protein 08/25/17 08/26/17 08/26/17 23:37 05:03 05:40 WBC RBC Hgb RDW Lymph % (Auto) Rice % (Auto) Lymph # Rice # Seg Neutrophils % Seg Neuts % (Manual) Lymphocytes % (Manual) Nucleated RBC % Seg Neutrophils # Seg Neutrophils # Man Lymphocytes # (Manual) Monocytes # (Manual) D-Dimer POC ABG pH POC ABG pCO2 POC ABG pO2 Sodium 147 H Potassium Chloride 109.5 H Carbon Dioxide BUN 67 H Creatinine 2.4 H Glucose 120 H POC Glucose 111 H 111 H Uric Acid Calcium 8.2 L Phosphorus 4.60 H Magnesium Lactate Dehydrogenase Total Creatine Kinase C-Reactive Protein Serum Total Protein Albumin Jvadt-6-Uvpylnggu PEP Interpretation Urine WBC (Auto) Urine Creatinine Urine Total Protein 08/27/17 08/27/17 08/27/17 05:04 07:27 07:27 WBC 22.1 H RBC 5.12 H Hgb RDW Lymph % (Auto) Rice % (Auto) Lymph # Rice # Seg Neutrophils % Seg Neuts % (Manual) 95.0 H Lymphocytes % (Manual) 2.0 L Nucleated RBC % Seg Neutrophils # Seg Neutrophils # Man 21.0 H Lymphocytes # (Manual) 0.4 L Monocytes # (Manual) D-Dimer POC ABG pH POC ABG pCO2 POC ABG pO2 Sodium Potassium Chloride Carbon Dioxide BUN 59 H Creatinine 2.0 H Glucose 101 H POC Glucose Uric Acid Calcium 7.9 L Phosphorus Magnesium 2.80 H Lactate Dehydrogenase Total Creatine Kinase C-Reactive Protein Serum Total Protein Albumin Ngowb-3-Voqldxrum PEP Interpretation Urine WBC (Auto) Urine Creatinine Urine Total Protein
[2017-08-27] MEDS ORDERED: NACL 0.45% 1000 ML 1,000 ML IV SCH (20:00)
[2017-08-27] MEDS: LEVAQUIN 750MG/150ML 750 MG/150 ML BAG IV SCH (20:22)
[2017-08-28] MEDS: DUONEB *Not for PRN Use IH SCH ×4 (02:22→19:29)
[2017-08-28] MEDS: LOPRESSOR PO SCH ×2 (07:26→14:32)
[2017-08-28] MEDS: BROVANA NEBU IH SCH ×2 (07:52→19:29)
[2017-08-28 08:40] LABS: BUN/Creatinine Ratio 23.33; Chloride 102.1 mmol/L (98-107); Potassium 4.2 mmol/L (3.6-5.0)
[2017-08-28] MEDS: RENVELA PO SCH ×2 (08:41→14:25)
[2017-08-28] MEDS: PEPCID PO SCH (11:06)
[2017-08-28] MEDS: APRESOLINE PO SCH (11:06)
[2017-08-28] MEDS: LOVENOX SUB-Q SCH (11:07)
--- NOTE | 2017-08-28 13:01 | Discharge Summary ---
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 Orozco Phone number called:: [phone] Was contact made?: Yes If yes, spoke with:: Dr. Orozco Time called:: 21:20 08/19/17 08:10 Consult to Physician [CONS] Routine Consulting Provider: BRIANNE CORTEZ Reason For Exam: Acute kidney injury Place consult to:: dr Cortez Notified:: Dr Cortez Phone number called:: [phone] Was contact made?: Yes If yes, spoke with:: Dr Cortez Time called:: 10:29 08/19/17 18:11 Consult to Dietitian/Nutrition [CONS] Routine Physician Instructions: Reason For Exam: Reason for Consult: Write/Manage Tube Feeding 08/23/17 11:45 Consult to PICC Line RN [CONS] Routine Reason For Exam: critical patient with poor peripheral access Type Line:: PICC 08/25/17 16:24 psychiatry consult [Consult to Mental Health] [CONS] Routine Reason For Exam: agitation Place consult to:: Mental Health Notified:: Mallory Phone number called:: [phone] Was contact made?: Yes If yes, spoke with:: Mallory Time called:: 16:30 Primary care physician: [employer] Hospitalization Condition: Stable Hospital course: 47-year-old man who was admitted for asthma exacerbation, who decompensated and had to be intubated. He was treated with Steroids, abx, and was weaned off the ventilator, and was subsequently weaned to room air. He is being discharged with a steroid taper, and maintenance medications for his asthma. Diagnosis Acute hypoxic resp faillure due to asthma exacerbation, on mechanical ventilator > 96 hours. Asthma exacerbation. Hyperkalemia. Sepsis pneumonitis: Acute Kidney Injury due to Acute tubular necrosis. Hypernatremia Dehydration Free water deficit Disposition: TO HOME OR SELFCARE Time spent for discharge: 33 minutes Core Measure Documentation - Palliative Care Palliative Care/ Comfort Measures: Not Applicable - Core Measures Any of the following diagnoses?: none Exam - Constitutional Vitals: Temp Pulse Resp BP Pulse Ox 98.6 F 72 18 124/65 96 08/28/17 00:08 08/28/17 08:02 08/28/17 08:02 08/28/17 11:06 08/28/17 00:08 General appearance: Present: no acute distress, well-nourished - EENT Eyes: Present: PERRL ENT: hearing intact, clear oral mucosa - Neck Neck: Present: supple, normal ROM - Respiratory Respiratory effort: normal Respiratory: bilateral: CTA - Cardiovascular Heart Sounds: Present: S1 & S2. Absent: rub, click - Extremities Extremities: pulses symmetrical, No edema Peripheral Pulses: within normal limits - Abdominal General gastrointestinal: Present: soft, non-tender, non-distended, normal bowel sounds Male genitourinary: Present: normal - Integumentary Integumentary: Present: clear, warm, dry - Musculoskeletal Musculoskeletal: gait normal, strength equal bilaterally - Psychiatric Psychiatric: appropriate mood/affect, intact judgment & insight - Neurologic Neurologic: CNII-XII intact, moves all extremities Plan Follow up with: PRIMARY CAREMD [Primary Care Provider] - 3-5 Days BRIANNE CORTEZ MD [Staff Physician] - 7 Days Prescriptions: ALBUTEROL Inhaler [ProAir HFA Inhaler] 2 puff IH QID PRN #1 inhalation PRN Reason: Shortness Of Breath ALBUTEROL NEB's [Proventil 0.083% NEBS] 2.5 mg IH Q4HRT PRN #120 nebu PRN Reason: Shortness Of Breath Budesoni/Formotero 160-4.5(Nf) [Symbicort 160-4.5 (Nf)] 2 puff IH BID #1 inha Metoprolol [Lopressor TAB] 25 mg PO Q8HR 30 Days Montelukast [Singulair] 10 mg PO QPM #30 tablet predniSONE [Deltasone] 10 mg PO .TAPER #48 tab QUEtiapine [SEROquel] 50 mg PO BID 30 Days Sevelamer Carbonate [Renvela] 800 mg PO TID 30 Days
--- NOTE | 2017-08-28 15:17 | Progress Note ---
Assessment and Plan - Patient Problems (1) Acute respiratory failure with hypoxia Current Visit: Yes Status: Acute Plan to address problem: S/P intubation (2) Acute renal failure due to tubular necrosis Current Visit: Yes Status: Acute Plan to address problem: Renal function reviewed. Current serum creatinine down to 2.1 today, stable Non-oliguric ARF likely secondary to Ischemic Acute Tubular necrosis secondary to Sepsis Obtain daily weights Renally dose medications Avoid Nephrotoxic agents Patient to follow-up with Nephrology at [facility] in 7 days of discharge [facility] [address] [place] [phone] (3) SIRS (systemic inflammatory response syndrome) Current Visit: Yes Status: Acute Plan to address problem: On IV Solumedrol and Levaquin (4) Hyperphosphatemia Current Visit: Yes Status: Acute Plan to address problem: Controlled on Renvela 1 tab 800 mg TID Subjective Date of service: 08/28/17 Principal diagnosis: Acute Hypoxemic Respiratory Failure; GUZMAN; Morbid Obesity Interval history: Patient awake and alert. States he is doing better. Objective - Vital Signs Vital signs: Vital Signs - 12hr 08/28/17 08/28/17 08/28/17 07:26 07:52 08:02 Temperature Pulse Rate 64 Pulse Rate [ 71 72 Anterior Bilateral Throughout] Respiratory Rate Respiratory 18 18 Rate [Anterior Bilateral Throughout] Blood Pressure 124/65 O2 Sat by Pulse Oximetry 08/28/17 08/28/17 08/28/17 08:44 11:06 13:17 Temperature 98.7 F Pulse Rate 77 Pulse Rate [ 70 Anterior Bilateral Throughout] Respiratory 18 Rate Respiratory 18 Rate [Anterior Bilateral Throughout] Blood Pressure 133/78 124/65 O2 Sat by Pulse 95 Oximetry 08/28/17 08/28/17 08/28/17 13:28 14:30 14:32 Temperature Pulse Rate 65 Pulse Rate [ 67 Anterior Bilateral Throughout] Respiratory Rate Respiratory 18 Rate [Anterior Bilateral Throughout] Blood Pressure 119/74 119/74 O2 Sat by Pulse 95 Oximetry - General Appearance General appearance: well-developed, appears stated age EENT: ATNC, PERRL, hearing intact, vision intact Neck: no JVD, supple Respiratory: Present: Decreased Breath Sounds Cardiology: regular, S1S2 Gastrointestinal: normoactive bowel sounds Integumentary: warm and dry Neurologic: alert and oriented x3 Musculoskeletal: other (mild edema) Psychiatric: cooperative - Lab 08/27/17 07:27 08/28/17 06:32 Most recent lab results Calcium 8.0 mg/dL (8.4-10.2) L 08/28/17 06:32 Phosphorus 4.60 mg/dL (2.5-4.5) H 08/26/17 05:03 Magnesium 2.80 mg/dL (1.7-2.3) H 08/27/17 05:04 Urine Creatinine 436.1 mg/dL (0.1-20.0) H 08/19/17 13:40 Urine Sodium 29 mEq/L 08/19/17 13:40 Urine Total Protein 140 mg/dL (5-11.8) H 08/19/17 13:40
[2017-08-28 15:49] VITALS: BP 142/91
== END 2017-08-28 19:45 | disposition home or self-care (01) | DRG 870 ==
LOC: ED 08:00 → 4A 11:10 → CC1 15:50 → 3A 08-26 16:03
PROVIDERS: ADMIT Internal Medicine; ATTEND Internal Medicine
PROC: 5A1955Z Respiratory Ventilation, Greater than 96 Consecutive Hours (ICD-10-PCS; principal; 2017-08-18)
PROC: 0BH17EZ Insertion of Endotracheal Airway into Trachea, Via Natural or Artificial Opening (ICD-10-PCS; 2017-08-18)
PROC: 4A033R1 Measurement of Arterial Saturation, Peripheral, Percutaneous Approach (ICD-10-PCS; 2017-08-18)
PROC: 5A09457 Assistance with Respiratory Ventilation, 24-96 Consecutive Hours, Continuous Positive Airway Pressure (ICD-10-PCS; 2017-08-18)
DX: A41.9 Sepsis, unspecified organism (principal); N17.0 Acute kidney failure with tubular necrosis; J96.01 Acute respiratory failure with hypoxia; J18.9 Pneumonia, unspecified organism; J45.901 Unspecified asthma with (acute) exacerbation; Z68.42 Body mass index [BMI] 45.0-49.9, adult; I16.1 Hypertensive emergency; E87.0 Hyperosmolality and hypernatremia; F41.9 Anxiety disorder, unspecified; F17.200 Nicotine dependence, unspecified, uncomplicated; E87.6 Hypokalemia; E66.01 Morbid (severe) obesity due to excess calories; E83.39 Other disorders of phosphorus metabolism; J20.9 Acute bronchitis, unspecified; E87.5 Hyperkalemia; Z88.0 Allergy status to penicillin; Z88.2 Allergy status to sulfonamides; Z82.49 Family history of ischemic heart disease and other diseases of the circulatory system; Z71.6 Tobacco abuse counseling
CPT/HCPCS: 36415; 36600; 71010; 74000; 76770; 80048; 80053; 81001; 82140; 82550; 82570; 82803; 82962; 83010; 83520; 83615; 83735; 83880; 83930; 83935; 84100; 84156; 84165; 84300; 84484; 84550; 85007; 85025; 85379; 86021; 86038; 86140; 86160; 86706; 86803; 87040; 87070; 87086; 87205; 89050; 93005; 93010; 93970; 94002; 94003; 94640; 94660; 94760; 96374; 96375; 96376; J0330; J0360; J0610; J1630; J1650; J1815; J1940; J1956; J2060; J2543; J2704; J2920; J2930; J3010; J3370; J7030; J7040; J7050; J7070